=== PATIENT | female | born 2005 | race Caucasian/White ===

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

== ENCOUNTER 2024-02-08 08:56 | Emergency (ER) | payer OTHER, SELFPAY ==
[2024-02-08 09:05] VITALS: BP 117/74; PULSE 69; RESP 17; TEMP 36.7; O2SAT 100; BMI 18.3
--- NOTE | 2024-02-08 09:08 | ED_ITS ---
Discharge Plan Disposition Patient Disposition: Home, Self-Care Condition: Good Prescriptions Prescriptions: New urtzmsoubemihdc-ohewplcdn-MR [Bromfed DM] 2-30-10 mg/5 mL Syrup 5 ml PO Q6H PRN (Reason: Cough) Qty: 240 0RF cefdinir 300 mg capsule 300 mg PO BID Qty: 20 0RF No Action desvenlafaxine succinate 25 mg tablet extended release 24 hr 25 mg PO DAILY Qty: 30 1RF albuterol sulfate 90 mcg/actuation Hfa Aerosol Inhaler 2 puff INHALATION Q6H PRN (Reason: Asthma) Referrals Follow up/Referrals: Hyacinth Tuttle PA [Primary Care Provider] - See instructions Activity Restrictions/Add. Instructions Additional Instructions/Restrictions: Drink plenty of fluids. Take tylenol or ibuprofen for pain or fever. Take the medications as directed. Follow up with your regular doctor. GO TO THE ER FOR ANY WORSENING SYMPTOMS Clinical Impressions Clinical Impression: Otitis media Instructions Patient Instructions: Middle Ear Infection, Cefdinir Print Language Print Language: Mohawk Discharge ED Provider: Daljit Pandya [facility] General Stated complaint: sore throat, Pain in R ear, body aches Time Seen by Provider: 02/08/24 09:08 History of Present Illness Provider Complaint: She states that for the past 3 days she has had bilateral ear pain, sinus congestion and a cough. Related Data Home Medications ?Medication ?Instructions ?Recorded ?Confirmed albuterol sulfate 90 mcg/actuation 2 puff inhalation Q6H PRN Asthma 02/08/24 02/08/24 aerosol inhaler Previous Rx's ?Medication ?Instructions ?Recorded desvenlafaxine succinate 25 mg 25 mg PO DAILY #30 tabs 01/19/24 tablet,extended release 24 hr sunlvjkmktvpkrk-qkiuqkbvnetdeme-AN 5 ml PO Q6H PRN Cough #240 mL 02/08/24 2 mg-30 mg-10 mg/5 mL oral syrup (Bromfed DM) cefdinir 300 mg capsule 300 mg PO BID #20 caps 02/08/24 Allergies Allergy/AdvReac Type Severity Reaction Status Date / Time amoxicillin [From AUGMENTIN] Allergy Mild I-RASH Verified 12/01/23 15:34 clavulanic acid Allergy Mild I-RASH Verified 12/01/23 15:34 [From AUGMENTIN] azithromycin Allergy Verified 12/01/23 15:34 prednisone Allergy Verified 12/01/23 15:34 [facility] Disclaimer: The information contained in this section may have been updated after the patient was seen, as this information can be updated by other users. Medical History (Updated 02/08/24 @ 09:36 by Daljit Pandya APRN) Sprain of foot, right Right ankle sprain Generalized anxiety disorder Major depressive disorder Depression Anxiety Urinary tract infection Migraine Asthma Surgical History History of tympanostomy tube placement History of wisdom tooth extraction 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 Smoking Status: Current every day smoker tobacco type: e-cigarettes second hand exposure: Yes alcohol intake: never counseling given: No substance use type: denies use counseling given: No current occupational status: student and other Travel in the last 8 weeks: None adopted: No caregiver/support person: No foster care: No household members: family housing: house lives independently: No marital status: single number of children: 0 number of grandchildren: 0 education level: other details: she will soon graduate in November 2022 Hx Recent Travel: No sexually active: Yes are you practicing safe sex: Yes caffeine: Yes physical activity: none montana/mosque: None special montana needs: No working smoke detector in home: Yes fire extinguisher in home: Yes carbon monox detector in home: Yes firearms in home: Yes firearms unloaded and locked: Yes do you feel safe at home: Yes victim of physical abuse: No victim of emotional abuse: No victim of sexual abuse: No would you like helpful sources: No ROS Obtained: Yes All systems reviewed & no additional complaints except as documented Constitutional Constitutional: Denies chills, Reports fever(s) and Reports poor appetite Eyes Eyes: Denies eye discharge ENT Ears, Nose, Mouth, and Throat: Denies ear discharge, Reports otalgia, Denies hearing loss, Denies sinus pain and Reports sore throat Cardiovascular Cardiovascular: Denies chest pain and Denies dyspnea Respiratory Respiratory: Denies chest congestion, Reports cough and Denies dyspnea Gastrointestinal Gastrointestingal: Denies abdominal pain, diarrhea, nausea or vomiting Musculoskeletal Musculoskeletal: Denies arthralgias Integumentary/Breasts Skin/Breast: Denies rash Physical Exam General General appearance: alert and in no apparent distress Head Head exam: atraumatic, normocephalic and normal inspection Eye Eye exam: Present normal appearance; Absent PERRL or EOMI ENT ENT exam: Present mucous membranes moist and normal external ear exam Expanded ENT Exam TM/Canal exam: Bilateral TM: erythema, bulging and effusion Nose exam: Absent sinus tenderness Nasal speculum exam: Bilateral: normal Mouth exam: Present normal external inspection and other; Absent drooling Teeth exam: Present normal inspection Throat exam: Present tonsillar erythema and tonsillomegaly Neck Neck exam: Present normal inspection, full ROM and trachea midline; Absent tenderness, meningismus or lymphadenopathy Chest Chest inspection: Present normal inspection and symmetric chest wall rise; Absent tenderness Respiratory Respiratory exam: Present normal lung sounds bilaterally; Absent respiratory distress, wheezes or stridor Cardiovascular Cardiovascular exam: Present regular rate, normal rhythm and normal heart sounds; Absent tachycardia or irregular rhythm Abdominal Exam Abdominal exam: Present soft and normal bowel sounds; Absent distention, tenderness, guarding, rebound or rigidity Extremities Exam Extremities exam: Present normal inspection and normal capillary refill; Absent tenderness, joint swelling or calf tenderness Back Exam Back exam: Present normal inspection and full ROM; Absent tenderness, CVA tenderness (R) or CVA tenderness (L) Neurological Exam Neurological exam: Present alert, oriented X3, CN II-XII intact, normal gait and reflexes normal; Absent motor sensory deficit Psychiatric Psychiatric exam: Present normal affect and normal mood Skin Skin exam: Present warm, dry, intact and normal color Lymphatic Lymphatic Findings: no adenopathy Medical Decision Making Medical Records Medical records reviewed: No I reviewed the patient's medical records. Dariel Inquiry Pt receiving controlled substance: No Lab Data Lab results reviewed: Yes I reviewed the patient's lab results.
[2024-02-08 09:31] LABS: UTC Strep Screen (Rapid) Negative (Negative)
[2024-02-08 09:40] VITALS: BP 117/74; PULSE 69; RESP 17; TEMP 36.7; O2SAT 100
== END 2024-02-08 09:42 | disposition home or self-care (01) ==
PROVIDERS: Emergency Provider Nurse Practitioner Family; PCP Physician Assistant
DX: H66.93 Otitis media, unspecified, bilateral (principal); R05.9 Cough, unspecified; R09.81 Nasal congestion
CPT/HCPCS: 87880; 99212; 99214; G0463

== ENCOUNTER 2024-03-15 21:02 | Emergency (ER) | payer OTHER, SELFPAY ==
[2024-03-15 21:52] VITALS: BP 117/73; PULSE 63; RESP 20; TEMP 36.7; O2SAT 100; BMI 18.8
--- NOTE | 2024-03-15 22:13 | XR_ITS ---
PROCEDURE INFORMATION: Exam: XR Left Ankle Exam date and time: 03/15/2024 11:34 PM Age: 18 years old Clinical indication: Pain; Ankle; Left TECHNIQUE: Imaging protocol: Radiologic exam of the left ankle. Views: 3 or more views. COMPARISON: CR XR ANKLE LT MIN 3V 03/15/2024 11:34 PM FINDINGS: Bones/joints: The ankle mortise is intact and symmetric. The talar dome is normal. No acute fracture. No degenerative changes. Soft tissues: Normal. IMPRESSION: No acute findings.
--- NOTE | 2024-03-15 22:13 | XR_ITS ---
PROCEDURE INFORMATION: Exam: XR Left Foot Exam date and time: 03/15/2024 11:36 PM Age: 18 years old Clinical indication: Pain; Foot; Left TECHNIQUE: Imaging protocol: Radiologic exam of the left foot. Views: 1 or 2 views. COMPARISON: CR XR ANKLE LT MIN 3V 03/15/2024 11:34 PM FINDINGS: Bones/joints: The foot is normally aligned and intact. No acute fracture. Normal joint spaces. Soft tissues: Normal. IMPRESSION: No acute findings.
--- NOTE | 2024-03-15 22:24 | XR_ITS ---
PROCEDURE INFORMATION: Exam: XR Lumbosacral Spine Exam date and time: 03/15/2024 11:31 PM Age: 18 years old Clinical indication: Low back pain; Additional info: Fall TECHNIQUE: Imaging protocol: Radiologic exam of the lumbosacral spine. Views: 2 or 3 views. COMPARISON: CR XR SCOLIOSIS SURVEY 08/29/2019 10:14 AM FINDINGS: Bones/joints: Normal. No acute fracture. Normal alignment. Soft tissues: Unremarkable. IMPRESSION: No acute findings.
[2024-03-15 22:30] VITALS: BP 119/72; PULSE 75; O2SAT 99
[2024-03-15] MEDS: IBUPROFEN 600 MG TABLET PO (22:31)
[2024-03-15] MEDS: METHOCARBAMOL 500MG TABLET 750 MG PO (22:31)
[2024-03-15] MEDS: ACETAMINOPHEN 500MG TAB 1000 MG PO (22:31)
--- NOTE | 2024-03-15 23:11 | PC.NURSE ---
sent urine up to lab at this time
[2024-03-15 23:29] LABS: Urine Pregnancy, HCG Qual. Negative (Negative)
[2024-03-15 23:30] VITALS: BP 108/73; PULSE 73; O2SAT 98
--- NOTE | 2024-03-15 23:30 | HMH.EDGENADL ---
Discharge Plan Disposition Patient Disposition: Home, Self-Care Condition: Good Prescriptions Prescriptions: New acetaminophen [Tylenol Extra Strength] 500 mg tablet 1,000 mg PO Q6H PRN (Reason: pain) 4 Days Qty: 20 0RF methocarbamol 500 mg tablet 500 mg PO TID PRN (Reason: pain) 5 Days Qty: 15 0RF ibuprofen [IBU] 600 mg tablet 600 mg PO Q6H PRN (Reason: pain) 3 Days Qty: 12 0RF No Action desvenlafaxine succinate 25 mg tablet extended release 24 hr 25 mg PO DAILY Qty: 90 1RF albuterol sulfate 90 mcg/actuation Hfa Aerosol Inhaler 2 puff INHALATION Q6H PRN (Reason: Asthma) Referrals Follow up/Referrals: Hyacinth Tuttle PA [Primary Care Provider] - See instructions Activity Restrictions/Add. Instructions Additional Instructions/Restrictions: You have been evaluated in the ED for your complaints. You may follow-up with your PCP in the next 3 to 5 days. Please return to ED for any new or worsening symptoms. Please take Tylenol, ibuprofen and Robaxin as needed for pain. Clinical Impressions Clinical Impression: Left ankle sprain, Sciatica of left side, Lumbar strain Print Language Print Language: Citizen Of [place] Discharge ED Provider: Georges Dia Adult HPI General Chief complaint: Fall Stated complaint: AO 03-15-24 playing with sister hurt left foot Time Seen by Provider: 03/15/24 22:04 Mode of Arrival: Family Vehicle Source of Information: Patient Limitations: No Limitations Description of Symptoms (Recalled from ER Triage Doc. by RN): 18 yo female presents with CC of lle numbness following fall from 4 -5 ft height off of her sister. Patient landed on her back, and now has pain in the lumbar and lower thoracic spine, in addition to numbness to left foot and difficulty walking. States she voided a few mins before this nurse triaged and it was painful in her back and pelvis History of Present Illness HPI narrative: 18-year-old female with past medical history significant for anxiety, depression, migraines, asthma, presents today with mother for evaluation concerning lower back pain with associated left lower extremity pain. Patient reports that she was playing with her sister who picked her up in the air. Patient states that she fell onto her back and began to experience lower back pain as well as shooting pain down her left lower extremity. She also complains of left ankle and foot pain. Has been able to ambulate however with pain. She denies hitting her head or losing consciousness. Denies any nausea, vomiting or fevers, chills, chest pain or shortness of breath, abdominal pain, other extremity pain or any other associated symptoms. Related Data Home Medications ?Medication ?Instructions ?Recorded ?Confirmed albuterol sulfate 90 mcg/actuation 2 puff inhalation Q6H PRN Asthma 02/08/24 03/08/24 aerosol inhaler Previous Rx's ?Medication ?Instructions ?Recorded desvenlafaxine succinate 25 mg 25 mg PO DAILY #90 tabs 02/22/24 tablet,extended release 24 hr acetaminophen 500 mg tablet 1,000 mg (2 x 500 mg) PO Q6H PRN 03/16/24 (Tylenol Extra Strength) pain 4 days #20 tabs ibuprofen 600 mg tablet (IBU) 600 mg PO Q6H PRN pain 3 days #12 03/16/24 tabs methocarbamol 500 mg tablet 500 mg PO TID PRN pain 5 days #15 03/16/24 tabs Allergies Allergy/AdvReac Type Severity Reaction Status Date / Time amoxicillin [From AUGMENTIN] Allergy Mild I-RASH Verified 03/08/24 09:16 clavulanic acid Allergy Mild I-RASH Verified 03/08/24 09:16 [From AUGMENTIN] azithromycin Allergy Verified 03/08/24 09:16 prednisone Allergy Verified 03/08/24 09:16 [facility] Disclaimer: The information contained in this section may have been updated after the patient was seen, as this information can be updated by other users. Medical History (Updated 03/16/24 @ 00:25 by Georges Dia DO) Sprain of foot, right Right ankle sprain Generalized anxiety disorder Major depressive disorder Depression Anxiety Urinary tract infection Migraine Asthma Surgical History History of tympanostomy tube placement History of wisdom tooth extraction 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 Smoking Status: Unknown if ever smoked second hand exposure: Yes alcohol intake: never counseling given: No substance use type: denies use counseling given: No current occupational status: student and other Travel in the last 8 weeks: None adopted: No caregiver/support person: No foster care: No household members: family housing: house lives independently: No marital status: single number of children: 0 number of grandchildren: 0 education level: other details: she will soon graduate in November 2022 Hx Recent Travel: No sexually active: Yes are you practicing safe sex: Yes caffeine: Yes physical activity: none [place]/jewish: None special [place] needs: No working smoke detector in home: Yes fire extinguisher in home: Yes carbon monox detector in home: Yes firearms in home: Yes firearms unloaded and locked: Yes do you feel safe at home: Yes victim of physical abuse: No victim of emotional abuse: No victim of sexual abuse: No would you like helpful sources: No ROS Obtained: Yes All systems reviewed & no additional complaints except as documented Physical Exam General General appearance: alert and in no apparent distress Head Head exam: atraumatic and normocephalic Eye Eye exam: Present normal appearance, PERRL and EOMI ENT ENT exam: Present normal oropharynx and mucous membranes moist Neck Neck exam: Present full ROM; Absent meningismus Respiratory Respiratory exam: Absent respiratory distress, wheezes, stridor or accessory muscle use Cardiovascular Cardiovascular exam: Present normal rhythm Abdominal Exam Abdominal exam: Present soft; Absent distention, tenderness, guarding, rebound or rigidity Extremities Exam Extremities exam: Present normal inspection, full ROM and tenderness (Patient does have tenderness palpation over the medial malleolus on the left ankle. She also has tenderness over the dorsum of the left foot. Palpable DP pulses.) Back Exam Back exam: Present normal inspection, full ROM and paraspinal tenderness (Mild paraspinal tenderness palpation bilaterally, lower lumbar spine); Absent tenderness, straight leg raise (R) or straight leg raise (L) Neurological Exam Neurological exam: Present alert, oriented X3 and CN II-XII intact; Absent motor sensory deficit Psychiatric Psychiatric exam: Present normal affect and normal mood Skin Skin exam: Present warm and dry Medical Decision Making Medical Records Medical records reviewed: Yes I reviewed the patient's medical records. Dariel Inquiry Pt receiving controlled substance: No Draiel was queried for this patient: No Vital Signs: 03/15/24 21:52 03/15/24 22:30 03/15/24 23:30 Temperature 98.0 F Temperature Source Oral Pulse Rate 75 73 Pulse Rate [Right Brachial] 63 Respiratory Rate 20 Blood Pressure 119/72 108/73 L Blood Pressure [Right Arm] 117/73 Blood Pressure Mean 83 80 Blood Pressure Mean [Right Arm] 87 Blood Pressure Source [Right Arm] Automatic Cuff Blood Pressure Position [Right Arm] Sitting 02 Sat by Pulse Oximetry 100 99 98 Oxygen Delivery Method Room Air Lab Data Lab Results 03/15/24 23:10: Urine HCG, Qual Negative Orders (Tests/Meds): ED MEDICATIONS Generic Name Dose Route Start Last Admin Trade Name Freq PRN Reason Stop Dose Admin Methocarbamol 750 mg 03/16/24 22:23 03/15/24 22:31 Methocarbamol 500mg Tablet PO 04/15/24 22:22 750 mg BID HELEN Administration Discontinued Medications Generic Name Dose Route Start Last Admin Trade Name Freq PRN Reason Stop Dose Admin Acetaminophen 1,000 mg 03/15/24 22:21 03/15/24 22:31 Acetaminophen 500mg Tab PO 03/15/24 22:22 1,000 mg ONCE ONE Administration Ibuprofen 600 mg 03/15/24 22:21 03/15/24 22:31 Ibuprofen 600 Mg Tablet PO 03/15/24 22:22 600 mg ONCE ONE Administration ORDERS Category Date Time Status Ankle XR - Left minimum 3 Views [XR ankle LT min 3V] Exams 03/15/24 22:13 Taken Stat Foot XR left 2 views [XR foot LT 2V] Stat Exams 03/15/24 22:13 Taken Lumbar spine XR 2-3 views [XR lumbar spine 2-3V] Stat Exams 03/15/24 22:24 Taken Urine , HCG Qual. Stat Lab 03/15/24 23:10 Completed Medical Decision Narrative: 18-year-old female with past medical history significant for anxiety, depression, migraines, asthma, presents today with mother for evaluation concerning lower back pain with associated left lower extremity pain. Patient reports that she was playing with her sister who picked her up in the air. Patient states that she fell onto her back and began to experience lower back pain as well as shooting pain down her left lower extremity. She also complains of left ankle and foot pain. Has been able to ambulate however with pain. She denies hitting her head or losing consciousness. On assessment she was hemodynamically stable and in no acute distress. Afebrile. Chest clear to station bilateral. Abdomen soft nondistended rotation. No midline chest pressure of the C/T/L-spine. No pelvic tenderness. She did have tenderness to palpation over the medial malleolus of the left ankle and over the dorsum of the left foot. Palpable DP pulses. Ambulatory however with pain. I did press on patient's piriformis muscle and it did reproduce her shooting pain. Straight leg test raise did not reproduce pain. Other physical exam findings unremarkable. Differential diagnoses include but not limited to lumbar strain/fracture, sciatica, extremity fracture, ankle sprain, among others Patient was given Tylenol, ibuprofen and Robaxin while in the ED. Plain films of the left ankle, left foot and lumbar x-ray did not show any acute bony abnormalities on my informal interpretation. On reassessment patient remains hemodynamically stable and in no acute distress. She is resting comfortably on stretcher. Pain is improved at this time. I discussed with patient/mother ED workup and results as well as current plan to discharge with supportive care measures with Tylenol, Motrin and Robaxin over the next few days. She is able to ambulate however will use her crutches that she has at home to further assist. They verbalized understanding and agreed with plan. Provided with return precautions and instructions concerning follow-up. Subsequently discharged. Critical Care Critical Care Time Critical Care Time: No
--- NOTE | 2024-03-15 23:34 | PC.NURSE ---
notified doron keene with neg preg results
[2024-03-16 00:44] VITALS: BP 101/64; PULSE 68; RESP 16; TEMP 36.8; O2SAT 98
== END 2024-03-16 00:49 | disposition home or self-care (01) ==
PROVIDERS: Emergency Provider Emergency Medicine; PCP Physician Assistant
DX: S39.012A Strain of muscle, fascia and tendon of lower back, initial encounter (principal); M54.42 Lumbago with sciatica, left side; S93.402A Sprain of unspecified ligament of left ankle, initial encounter; J45.909 Unspecified asthma, uncomplicated; W17.89XA Other fall from one level to another, initial encounter; Y92.9 Unspecified place or not applicable
CPT/HCPCS: 72100; 73610; 73620; 81025; 99285

== ENCOUNTER 2024-05-07 18:01 | Emergency (ER) | payer OTHER, SELFPAY ==
--- NOTE | 2024-05-07 18:59 | ED_ITS ---
Discharge Plan Disposition Patient Disposition: Home, Self-Care Condition: Good Prescriptions Prescriptions: New rkzcpkuwovwbwaj-ewahtahlu-HD [Bromfed DM] 2-30-10 mg/5 mL Syrup 5 ml PO Q6H PRN (Reason: Cough) Qty: 240 0RF cefdinir 300 mg capsule 300 mg PO BID Qty: 20 0RF No Action desvenlafaxine succinate 25 mg tablet extended release 24 hr 25 mg PO DAILY Qty: 90 1RF albuterol sulfate 90 mcg/actuation Hfa Aerosol Inhaler 2 puff INHALATION Q6H PRN (Reason: Asthma) Referrals Follow up/Referrals: Hyacinth Tuttle PA [Primary Care Provider] - See instructions Activity Restrictions/Add. Instructions Additional Instructions/Restrictions: Drink plenty of fluids. Take tylenol or ibuprofen for pain or fever. Take the medications as directed. Follow up with your regular doctor. GO TO THE ER FOR ANY WORSENING SYMPTOMS Clinical Impressions Clinical Impression: Pharyngitis, Acute viral syndrome Stand Alone Forms Stand Alone Forms: Work/School Release Instructions Patient Instructions: Sore Throat, DI for Pharyngitis/Tonsillopharyngitis -- Adult Print Language Print Language: [place] Discharge ED Provider: Daljit Pandya [facility] General Stated complaint: Sore throat,runny nose,BRIONES Time Seen by Provider: 05/07/24 18:59 Related Data Home Medications ?Medication ?Instructions ?Recorded ?Confirmed albuterol sulfate 90 mcg/actuation 2 puff inhalation Q6H PRN Asthma 02/08/24 05/07/24 aerosol inhaler Previous Rx's ?Medication ?Instructions ?Recorded desvenlafaxine succinate 25 mg 25 mg PO DAILY #90 tabs 02/22/24 tablet,extended release 24 hr dlafsruuxhjxkru-mykshsoaikqxagm-VC 5 ml PO Q6H PRN Cough #240 mL 05/07/24 2 mg-30 mg-10 mg/5 mL oral syrup (Bromfed DM) cefdinir 300 mg capsule 300 mg PO BID #20 caps 05/07/24 Allergies Allergy/AdvReac Type Severity Reaction Status Date / Time amoxicillin [From AUGMENTIN] Allergy Mild I-RASH Verified 03/08/24 09:16 clavulanic acid Allergy Mild I-RASH Verified 03/08/24 09:16 [From AUGMENTIN] azithromycin Allergy Verified 03/08/24 09:16 prednisone Allergy Verified 03/08/24 09:16 [facility] Disclaimer: The information contained in this section may have been updated after the patient was seen, as this information can be updated by other users. Medical History (Updated 05/07/24 @ 19:40 by Daljit Pandya APRN) Sprain of foot, right Right ankle sprain Generalized anxiety disorder Major depressive disorder Depression Anxiety Urinary tract infection Migraine Asthma Surgical History History of tympanostomy tube placement History of wisdom tooth extraction 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 Smoking Status: Unknown if ever smoked second hand exposure: Yes alcohol intake: never counseling given: No substance use type: denies use counseling given: No current occupational status: student and other Travel in the last 8 weeks: None adopted: No caregiver/support person: No foster care: No household members: family housing: house lives independently: No marital status: single number of children: 0 number of grandchildren: 0 education level: other details: she will soon graduate in November 2022 Hx Recent Travel: No sexually active: Yes are you practicing safe sex: Yes caffeine: Yes physical activity: none mont[place]/buddhist: None special [place] needs: No working smoke detector in home: Yes fire extinguisher in home: Yes carbon monox detector in home: Yes firearms in home: Yes firearms unloaded and locked: Yes do you feel safe at home: Yes victim of physical abuse: No victim of emotional abuse: No victim of sexual abuse: No would you like helpful sources: No ROS Obtained: Yes All systems reviewed & no additional complaints except as documented Constitutional Constitutional: Reports chills and Reports fever(s) Eyes Eyes: Denies eye discharge ENT Ears, Nose, Mouth, and Throat: Reports as per HPI Cardiovascular Cardiovascular: Denies chest pain Respiratory Respiratory: Denies chest congestion and Reports cough Gastrointestinal Gastrointestingal: Reports nausea; Denies abdominal pain, constipation, cramping, diarrhea or vomiting Musculoskeletal Musculoskeletal: Denies arthralgias Integumentary/Breasts Skin/Breast: Denies rash Neurologic Neurologic: Denies paresthesias Physical Exam General General appearance: alert and in no apparent distress Head Head exam: atraumatic, normocephalic and normal inspection Eye Eye exam: Present normal appearance, PERRL and EOMI ENT ENT exam: Present mucous membranes moist and normal external ear exam Expanded ENT Exam TM/Canal exam: Bilateral TM: erythema and bulging Nose exam: Absent sinus tenderness Mouth exam: Present normal external inspection; Absent drooling Teeth exam: Present normal inspection Throat exam: Present tonsillar erythema, tonsillomegaly and tonsillar exudate Neck Neck exam: Present normal inspection, full ROM and trachea midline; Absent tenderness, meningismus or lymphadenopathy Chest Chest inspection: Present normal inspection and symmetric chest wall rise; Absent tenderness Respiratory Respiratory exam: Present normal lung sounds bilaterally; Absent respiratory dis tress, wheezes, stridor or accessory muscle use Cardiovascular Cardiovascular exam: Present regular rate and normal rhythm; Absent systolic murmur or diastolic murmur Abdominal Exam Abdominal exam: Present soft and normal bowel sounds; Absent distention, tenderness, guarding, rebound or rigidity Extremities Exam Extremities exam: Present normal inspection and normal capillary refill; Absent calf tenderness Back Exam Back exam: Present normal inspection and full ROM; Absent tenderness, CVA tenderness (R) or CVA tenderness (L) Neurological Exam Neurological exam: Present alert, oriented X3 and CN II-XII intact Psychiatric Psychiatric exam: Present normal affect and normal mood Skin Skin exam: Present warm, dry, intact and normal color Medical Decision Making Medical Records Medical records reviewed: No I reviewed the patient's medical records. Screening: Per USPSTF and CDC recommendations, given the prevalence of disease in our [facility], it is our hospital?s policy to screen for HIV and viral Hepatitis for all patients aged 18 and over and those with ongoing risk factors. Dariel Inquiry Pt receiving controlled substance: No Lab Data Lab results reviewed: Yes I reviewed the patient's lab results.
[2024-05-07 19:00] VITALS: BP 117/71; PULSE 69; RESP 17; TEMP 37.2; O2SAT 100; BMI 17.8
[2024-05-07 19:14] LABS: UTC Strep Screen (Rapid) Negative (Negative)
[2024-05-07 19:40] VITALS: BP 117/71; PULSE 69; RESP 17; TEMP 37.2; O2SAT 100
[2024-05-07 19:49] LABS: Adenovirus,PCR Not Detected (NotDetected); Bordetella Pertussis Not Detected (NotDetected); Chlamydophila Pneumoniae, PCR Not Detected (NotDetected); Coronavirus 19, PCR Not Detected (NotDetected); Coronavirus 229E Not Detected (NotDetected); Coronavirus NL63 Not Detected (NotDetected); Coronavirus OC43 Not Detected (NotDetected); Coronovirus HKU1,PCR Not Detected (NotDetected); Human Metapneumovirus Not Detected (NotDetected); Influenza A, PCR Not Detected (NotDetected); Influenza AH1, 2009 Not Detected (NotDetected); Influenza AH1, PCR Not Detected (NotDetected); Influenza AH3,PCR Not Detected (NotDetected); Influenza B, PCR Not Detected (NotDetected); Mycoplasma Pneumoniae, PCR Not Detected (NotDetected); Parainfluenza 1, PCR Not Detected (NotDetected); Parainfluenza 2, PCR Not Detected (NotDetected); Parainfluenza 3, PCR Not Detected (NotDetected); Parainfluenza 4, PCR Not Detected (NotDetected); Respiratory Syncytial Virus Not Detected (NotDetected)
[2024-05-08 05:49] LABS: Rhinovirus/Enterovirus Detected (NotDetected)
== END 2024-05-07 19:42 | disposition home or self-care (01) ==
PROVIDERS: Emergency Provider Nurse Practitioner Family; PCP Physician Assistant
DX: B34.9 Viral infection, unspecified (principal); J02.9 Acute pharyngitis, unspecified; R51.9 Headache, unspecified; R09.89 Other specified symptoms and signs involving the circulatory and respiratory systems; R50.9 Fever, unspecified
CPT/HCPCS: 87265; 87486; 87581; 87632; 87635; 87880; 99212; G0381

== ENCOUNTER 2024-05-28 09:22 | Emergency (ER) | payer OTHER, SELFPAY ==
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
--- OUTSIDE RECORDS SUMMARY | 2024-05-28 09:28 | XMS_ITS | Encounter Summary ---
Author Organization Healthcare Address [address] [place] [address] Care Team Providers Care Railroad Car Checker Name Role Phone Domenico Jameson MD Primary Care Provider [phone] Encounter Details Date Type Department Care Team (Late st Contact Info) Description 11/24/2022 Telephone [facility] [address] [place] [address] Keyana Raymond RN [facility] 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 Tobacco Use Types Packs/Day Years Used Date Smoking Tobacco: Never Passive Smoke Exposure: Yes Smokeless Tobacco: Never Alcohol Use Standard Drinks/Week Comments Never 0 (1 standard drink = 0.6 oz pur e alcohol) Comments Unknown Sex and Gender Information Value Date Recorded Sex Assigned at Not on file Legal Sex Female 6:31 PM EDT Gender Identity Not on file Sexual Orientation Not on file documented as of this encounter Miscellaneous Notes * Telephone Encounter - Keyana Raymond RN - 11/24/2022 11:04 AM EDT Called [facility], no results for calpro yet. Will follow for results. documented in this encounter Plan of Treatment Not on file documented as of this encounter Visit Diagnoses Not on filedocumented in this encounter Additional Health Concerns Assessment Noted Time A fall risk assessment has been complete d for the patient 11/24/2022 10:50 AM EDT documented as of this encounter Care Teams Railroad Car Checker Relationship Specialty Start Date End Date Domenico Jameson MD [address] [place] [address] PCP - General 11/21/20 documented as of this encounter
--- OUTSIDE RECORDS SUMMARY | 2024-05-28 09:28 | XMS_ITS | Clinical Summary ---
Author Organization [facility] Address [address] [place] [address] Care Team Providers Care Heading Up Machine Operator Name Role Phone Domenico Jameson MD Primary Care Provider [phone] Allergies Active Allergy Reactions Criticality Noted Date Comments Amoxicillin-Pot Clavulanate Rash Low 09/21/19 14 Azithromycin Hives Medium 03/30/2022 Prednisone Rash Low 12/19/2018 Medications Probiotic Product (PROBIOTIC PO) 6 Active Multiple Vitamin (multivitamin) tablet Take 1 tablet by mouth 1 (one) time each day. Active Flovent HFA 110 MCG/ACT inhaler Inhale 1 puff if needed. 1 Active escitalopram (Lexapro) 5 MG tablet TAKE ONE TABLET BY MOUTH ONCE a DAY DIRECTED 1 Active ProAir HFA 108 (90 Base) MCG/ACT inhaler INHALE TWO PUFFS BY MOUTH EVERY 4 TO 6 HOURS NEEDED FOR cough, wheeze, OR SHORTNESS OF BREATH 2 Active ondansetron (Zofran) 4 MG tablet Take 4 mg by mouth every 8 (eight) hours if needed. 2 Active norgestimate-ethin yl estradiol (Sprintec 28) 0.25-35 MG-MCG tabletIndications: Encounter for initial prescription of contraceptive pills Take 1 tablet by mouth 1 (one) time each day. 28 tablet 12 3 Active desvenlafaxine succinate er (Pristiq) 25 MG 24 hr tablet Take 25 mg by mouth 1 (one) time each day. 3 Active cholecalciferol 10 MCG (400 UNIT) tablet Take 400 Units by mouth 1 (one) time each day. Active cyanocobalamin 100 MCG tablet Take 100 mcg by mouth 1 (one) time each day. Active Folic Acid (FOLATE PO) Take by mouth. Active bisacodyl (Dulcolax) 5 MG EC tablet Do not crush, chew, or split. Take 1 to 2 tabs daily as directed 60 tablet 5 3 Active polyethylene glycol (MiraLax) 17 GM/SCOOP powder Take 1 capful ( 17 gm) in 8 oz of any clear liquid daily as directed. 527 g 6 3 Active Active Problems Problem Noted Date Diagnosed Date Encounter for initial prescription of contracept michelle pills 09/13/2022 Assessment & Plan (09/13/2022 11:02 AM EST): - heavy painful periods - has tried a few different types of OCPs before. Not interested in other options - sprintec Rx sent - discussed starting paps at 20 yo - RTC 3 month for symptom eval Low libido 09/13/2022 Assessment & Plan (09/13/2022 11:03 AM EST): - we discussed that antidepressants like lexapro can cause decreased libido. - we discussed that Wellbutrin may be a good option; however, since she has a mood disorder that she should see her prescribing provider to switch medications are certain antidepressants can make mood disorders worse Palpitations 05/02/2021 Other chest pain 04/30/2021 Constipation 10/24/2014 Periumbilical abdominal pain 10/24/2014 Family History Medical History Relation Name Comments COPD Father Hypertension Father Breast cancer Maternal Grandmother Ulcers Maternal Grandmother breast cancer Maternal Grandmother DION disease Mother Cardiac disorder Other 1 Cardiac disorder Other 2 COPD Other 3 COPD Other 4 Diabetes Other 5 Diabetes Other 6 Hypertension Other 7 Hypertension Other 8 Breast cancer Other 9 Relation Name Status Comments Father Maternal Grandmother Mother Other 1 Other 2 Other 3 Other 4 Other 5 Other 6 Other 7 Other 8 Other 9 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 Tobacco Use Types Packs/Day Years Used Date Smoking Tobacco: Never Passive Smoke Exposure: Yes Smokeless Tobacco: Never Tobacco Cessation:Counseling Given: Not Answered Alcohol Use Standard Drinks/Week Comments Never 0 (1 standard drink = 0.6 oz pur e alcohol) Comments Unknown Sex and Gender Information Value Date Recorded Sex Assigned at Not on file Legal Sex Female 6:31 PM EDT Gender Identity Not on file Sexual Orientation Not on file Last Filed Vital Signs Vital Sign Reading Time Taken Comments Blood Pressure 112/76 11/24/2022 10:50 AM EDT Pulse 74 11/24/2022 10:50 AM EDT Temperature 36.5 ??C (97.7 ??F) 11/24/2022 10:50 AM E DT Respiratory Rate 17 09/13/2022 9:46 AM EST Oxygen Saturation 97% 09/13/2022 9:46 AM EST Inhaled Oxygen Concentration - - Weight 45.1 kg (99 lb 6.8 oz) 11/24/2022 10:50 A M EDT Height 160.7 cm (5' 3.27 ) 11/24/2022 10:50 AM E DT Body Mass Index 17.46 11/24/2022 10:50 AM EDT Plan of Treatment Health Maintenance Due Date Last Done Comments [facility]-Chlamydia and Gonorrhea Screening 2004 [facility]Depression Screening 2004 [facility]HIV Screening 2004 [facility]Hepatitis C Screening 2004 [facility]-Infant/Child/Adol SDOH Screenings 2004 [facility]-HPV Vaccines (1 - 3-dose series) 2019 [facility]- SDOH Screenings 2022 [facility]-Adult SDOH Screenings 2022 [id number] Vaccine ( season) 2024 04/23/2022, 06/01/2021, 03/07/2021 [facility]-Influenza Vaccine (#1) 2024 08/18/2018 [facility]-DTaP,Tdap,and Td Vaccines (7 - Td or Tdap) 01/27/2026 01/28/2016, 04/16/2008, 10/13/2005, Additional history exists [facility]-Zoster Vaccines (1 of 2) 2054 04/16/2008, 05/03/2005 [facility]-RSV Vaccine: 60+ Years or (1 - 1-dose 75+ series) 2079 [facility]-Hepatitis B Vaccines Completed 005, 2004, 2004 [facility]-Varicella Vaccines Completed 04/16/2008, 2004 [facility]-Hepatitis A Vaccines Completed 06/16/2018, 10/10 [facility]-HIB Vaccines Aged Out No longer e ligible based on patient's age to complete this topic [facility]-IPV Vaccines Aged Out No longer e ligible based on patient's age to complete this topic [facility]-Pneumococcal Vaccine: Pediatrics (0 to 5 Years) and At-Risk Patients (6 to 64 Years) Aged Out No longer eligible based on patient's age to complete this topic [facility]Rotavirus Vaccines Aged Out No lo nger eligible based on patient's age to complete this topic Insurance [employer] MEDICA[employer] Care Teams Heading Up Machine Operator Relationship Specialty Start Date End Date Domenico Jameson MD [address] [place] [id number] PCP - General 11/21/20
--- OUTSIDE RECORDS SUMMARY | 2024-05-28 09:28 | XMS_ITS | Encounter Summary ---
Author Organization [facility] Address [address] [place] [address] Care Team Providers Care Welding Equipment Repairer Supervisor Name Role Phone Domenico Jameson MD Primary Care Provider [phone] Reason for Referral * Cardiac Stress Testing (Routine) - Closed Specialty Diagnoses / Procedures Referred By Yony yung Referred To Contact Cardiology Diagnoses Palpitations Procedures Pediatric Holter Monitor Mj Reynolds MD [address] [address] Phone: tel: fax: Referral ID Status Reason Start Date Expiration Date Visits Re quested Visits Authorized [id number] Closed 04/30/2021 10/30/2022 1 1 Reason for Visit * Cardiac Stress Testing (Routine) - Closed Specialty Diagnoses / Procedures Referred By Yony yung Referred To Contact Cardiology Diagnoses Palpitations Procedures Pediatric Holter Monitor Mj Reynolds MD [address] [address] Phone: tel: fax: Referral ID Status Reason Start Date Expiration Date Visits Re quested Visits Authorized [id number] Closed 04/30/2021 10/30/2022 1 1 Encounter Details Date Type Department Care Team (Latest Contact Info) Description 04/30/2021 12:45 PM EDT - 04/30/2021 11:59 PM EDT Hospital Encounter [facility] Pediatric Cardiac Diagnostic Testing [address] Floor, [place] [address] Palpitations Discharge Disposition: Home or Self Care 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 Tobacco Use Types Packs/Day Years Used Date Smoking Tobacco: Passive Smo ke Exposure - Never Smoker Smokeless Tobacco: Never Comments Unknown Sex and Gender Information Value Date Recorded Sex Assigned at Not on file Legal Sex Female 6:31 PM EDT Gender Identity Not on file Sexual Orientation Not on file COVID-19 Exposure Response Date Recorded In the last month, have you been in contact with someone who was confirmed or suspected to have Coronavirus / COVID-19? No / Unsure 04/30/2021 11:44 AM EDT documented as of this encounter Medications at Time of Discharge escitalopram (Lexapro) 5 MG tablet TAKE ONE TABLET BY MOUTH ONCE a DAY DIRECTED 04/14/2021 Flovent HFA 110 MCG/ACT inhaler Inhale 1 puff if needed. 04/14/2021 Multiple Vitamin (multivitamin) tablet Take 1 tablet by mouth 1 (one) time each day. Probiotic Product (PROBIOTIC PO) 12/29/2015 cephalexin (Keflex) 500 MG capsule TAKE ONE CAPSULE BY MOUTH TWICE DAILY FOR 10 DAYS -- FINISH ALL MEDICINE -- 04/29/2021 2 erythromycin ethylsuccinate (E.E.S. Granules) 200 MG/5ML suspension Take 160 mg or 4 mls Three times daily half an hour before meals 360 mL 1 04/01/2021 2 metoprolol succinate XL (Toprol-XL) 25 MG 24 hr tablet Take 25 mg by mouth 1 (one) time each day. 04/28/2021 3 norethindrone-ethiny l estradiol (Microgestin 07/30) 1-20 MG-MCG tablet Take 1 tablet by mouth 1 (one) time each day. 03/25/2021 2 omeprazole (PriLOSEC) [address] capsule Take 20 mg by mouth 1 (one) time each day. 03/10/2021 3 risperiDONE (RisperDAL) 1 MG tablet TAKE ONE TABLET BY MOUTH EVERY DAY AT BEDTIME DIRECTED 03/25/2021 2 VITAMIN D, ERGOCALCIFEROL, PO Take by mouth. 3 documented as of this encounter Plan of Treatment Not on file documented as of this encounter Procedures Procedure Name Priority Date/Time Associated Diagnosis Comments PEDIATRIC HOLTER MONITOR 48 HOURS TO 7 DAYS Routine 04/30/2021 1:41 PM EDT Palpitations documented in this encounter Results * PEDIATRIC HOLTER MONITOR 48 HOURS TO 7 DAYS (04/30/2021 1:41 PM EDT) BSA 1.53 m2 CAR DO NOT SEND Anatomical Region Laterality Modality Other Narrative 07/09/2021 12:30 PM EST Holter monitor study was 1. Rhythm is mostly ectopic atrial rhythm and occasional sinus rhythm (normal variant) with normal HR variability. Circadian pattern to HR. 2. Rare PACs (<1 per hour). No tachyarrhythmias. 3. Button pushes are EAR, NSR and ST for age with sinus arrhythmia. No Diary. Signed By Alon Cox 05/05/2021 16:57 us Mj Reynolds MD [facility] CARDIAC SERVICES PROCEDU RES Final Result documented in this encounter Visit Diagnoses Diagnosis Palpitations documented in this encounter Additional Health Concerns Assessment Noted Time A fall risk assessment has been complete d for the patient 04/01/2021 10:27 AM EDT documented as of this encounter Care Teams Welding Equipment Repairer Supervisor Relationship Specialty Start Date End Date Domenico Jameson MD [address] [place] [address] PCP - General 11/21/20 documented as of this encounter
--- OUTSIDE RECORDS SUMMARY | 2024-05-28 09:28 | XMS_ITS | Encounter Summary ---
Author Organization Healthcare Address [address] [id number] Care Team Providers Care Oracle Application Architect Name Role Phone Domenico Jameson MD Primary Care Provider [phone] Reason for Visit * Reason Comments Abdominal Pain Nausea Encounter Details Date Type Department Care Team (Late st Contact Info) Description 11/24/2022 10:30 AM EDT Office Visit [facility] [address] [place] [address] Joe Marc MD [address] [facility] [address] [place] [address] Chronic abdominal pain (Primary Dx) 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 Tobacco Use Types Packs/Day Years [...] on file documented as of this encounter Last Filed Vital Signs Vital Sign Reading Time Taken Comments Blood Pressure 112/76 11/24/2022 10:50 AM EDT Pulse 74 11/24/2022 10:50 AM EDT Temperature 36.5 ??C (97.7 ??F) 11/24/2022 1 0:50 AM EDT Respiratory Rate - - Oxygen Saturation - - Inhaled Oxygen Concentration - - Weight 45.1 kg (99 lb 6.8 oz) 3 10:50 AM EDT Height 160.7 cm (5' 3.27 ) 11/24/2022 1 0:50 AM EDT Body Mass Index 17.46 11/24/2022 10:50 AM EDT Body Mass Index Percentile 3.70% 11/24 10:50 AM EDT Growth Chart: [facility] (Girls, 2- 20 Years) documented in this encounter Miscellaneous Notes * Progress Notes - Joe Marc MD - 11/24/2022 10:30 AM EDT Images from the original note were not included. Subjective Dear Domenico Jameson MD, I had the pleasure of seeing Roxi Wilkinson who is a 17 y.o. female being seen as a established patient at the [facility] today with/for Abdominal Pain and Nausea. Roxi Wilkinson was last seen in our specialty clinic on 03 30 22. Discussion Summary: Fidelia has a history of [...] of inflammatory bowel disease as a differential Subsequent plan following the last visit: 1 Cbc, CMP , CRP 2 Locally fecal calprotectin. This was never obtained. 3 Stool plan as below. 4 Clinic to be determined depending on results or in 6 months WASHOUT STAGE (LAST 2 DAYS): place 5 capfuls in 32 oz of gatorade or [...] bowel movements daily. We have used the [place] stool scale to explain a good bowel movement. I have explained a stepwise approach to ensuring a good bowel movement in 3 days. Weekend Tuesday Weekend Morning Miralax Miralax Miralax Miralax Miralax Repeat washout Afternoon 1 Dulcolax tab 2 Dulcolax tabs 3 Dulcolax tabs 3 Dulcolax Tabs plus 1 Miralax Means if there is no bowel movement by after breakfast the next day. We have also discussed a weaning protocol when he has established a good bowel movement pattern fora few months. We discussed that during the maintenance phase, stools should look like type 4 to type 5 on the chart below. The patient is here today with parent who assists in giving the child's history. Current concerns: Abdominal pain and nausea. She is having anxiety and depression for which she is on medical management. Abdominal pain about every other day no particular time of the day. It does not wake her from sleep. It is not specific and cramping. Eating aggravates this and she has to have a BM when she is eating. BM are variable no to 4 to 5 times per day She is not doing the bowel plan we suggested. 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 She did have a change in her mood medication but this was after her complaints started. She does vap but just nicotine. Temp: [36.5 ??C (97.7 ??F)] 36.5 ??C (97.7 ??F) Heart Rate: [74] 74 BP: (112)/(76) 112/76 Wt Readings from Last 3 Encounters: 11/24/22 45.1 kg (99 lb 6.8 oz) (4 %, Z= -1.77)* 09/13/22 44.7 kg (98 lb 8.7 oz) (3 %, Z= -1.83)* 03/30/22 45.4 kg (100 lb 1.4 oz) (5 %, Z= -1.62)* * Growth percentiles are based on CDC (Girls, 2-20 Years) data. Ht Readings from Last 3 Encounters: 11/24/22 1.607 m (5' 3.27 ) (35 %, Z= -0.39)* 09/13/22 1.626 m (5' 4 ) (46 %, Z= -0.10)* 03/30/22 1.599 m (5' 2.95 ) (31 %, Z= -0.50)* * Growth percentiles are based on [facility] (Girls, 2-20 Years) data. Past Medical History: Diagnosis Date Anxiety Depression Enterocolitis due to Clostridium difficile, not specified as recurrent C. difficile diarrhea Migraines Personal history of other diseases of urinary system History of hematuria Proteinuria, unspecified Proteinuria Family History Problem Relation Name Age of Onset DION disease Mother COPD Father Hypertension Father Breast cancer Maternal Grandmother Ulcers Maternal Grandmother Other (breast cancer) Maternal Grandmother Cardiac disorder Other Cardiac disorder Other COPD Other COPD Other Diabetes Other Diabetes Other Hypertension Other Hypertension Other Breast cancer Other Past Surgical History: Procedure Laterality Date DENTAL SURGERY 2020 wisdom teeth MYRINGOTOMY WTHOUT TUBES N/A Myringotomy from Proximiant 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 Tobacco Use Smoking status: Never Passive exposure: Yes Smokeless tobacco: Never Substance Use Topics Alcohol use: Never Current Outpatient Medications on File Prior to Visit Medication Sig Dispense Refill cholecalciferol 10 MCG (400 UNIT) tablet Take 400 Units by mouth 1 (one) time each day. cyanocobalamin 100 MCG tablet Take 100 mcg by mouth 1 (one) time each day. desvenlafaxine succinate er (Pristiq) 25 MG 24 hr tablet Take 25 mg by mouth 1 (one) time each day. Folic Acid (FOLATE PO) Take by mouth. norgestimate-ethinyl estradiol (Sprintec 28) 0.25-35 MG-MCG tablet Take 1 tablet by mouth 1 (one) time each day. 28 tablet 12 ProAir HFA 108 (90 Base) MCG/ACT inhaler INHALE TWO PUFFS BY MOUTH EVERY 4 TO 6 HOURS NEEDED FORcough, wheeze, OR SHORTNESS OF BREATH Probiotic Product (PROBIOTIC PO) escitalopram (Lexapro) 5 MG tablet TAKE ONE TABLET BY MOUTH ONCE a DAY DIRECTED (Patient not taking: Reported on 11/24/2022) Flovent HFA 110 MCG/ACT inhaler Inhale 1 puff if needed. (Patient not taking: Reported on 11/24/2022) Multiple Vitamin (multivitamin) tablet Take 1 tablet by mouth 1 (one) time each day. ondansetron (Zofran) 4 MG tablet Take 4 mg by mouth every 8 (eight) hours if needed. (Patient not taking: Reported on 11/24/2022) [DISCONTINUED] bisacodyl (Dulcolax) 5 MG EC tablet Do not crush, chew, or split. Take 1 to 2 tabs daily as directed (Patient not taking: Reported on 11/24/2022) 60 tablet 5 [DISCONTINUED] polyethylene glycol (MiraLax) 17 GM/SCOOP powder Take 1 capful ( 17 gm) in 8 oz of any clear liquid daily as directed. (Patient not taking: Reported on 11/24/2022) 527 g 6 [DISCONTINUED] VITAMIN D, ERGOCALCIFEROL, PO Take by mouth. No current facility-administered medications on file prior to visit. Allergies Allergen Reactions Azithromycin Hives Augmentin [Amoxicillin-Pot Clavulanate] Rash Prednisone Rash All medications have been reviewed today. Objective Review of Systems A 14 point review of systems was performed and was negative except as noted in the history of present illness. Vitals: 11/24/22 1050 BP: 112/76 Pulse: 74 Temp: 36.5 ??C (97.7 ??F) Physical Exam Constitutional General appearance: No acute distress, well appearing and well nourished. Eyes Conjunctiva and lids: No swelling, [...] S1 and S2, without murmurs. Abdomen Abdomen: No masses, non tender. Liver and spleen: No hepatomegaly or splenomegaly. Lymphatic Palpation of lymph nodes in neck: No lymphadenopathy Musculoskeletal [place] and station: Normal Digits and nails: Normal without clubbing or cyanosis. Inspection/palpation of joints, bones, and muscles: Normal. Skin Skin and subcutaneous tissue: Normal without rashes or lesions. Neurologic Cranial nerves: Appear grossly intact. Reflexes: 2 + and symmetric. Psychiatric Orientation to person, place and time: Normal. Mood and effect: Normal for age Results: Assessment: Problem List Items Addressed This Visit None Visit Diagnoses Chronic abdominal pain - Primary Relevant Orders CBC and differential Comprehensive metabolic panel C-reactive protein Discussion Summary: Fidelia has a history of stool urgency with eating. Stool is described as type 1 to 3 on the [place]. There is some early satiety and there has been some wt. Loss. She had an acute colitis in 2016 so we follow her. This last year she has been having more complaints of abdominal pain and alternating BM with urgency for BM during eating. Her labs have been stable and we were finally able to get to send a fecal calprotectin last week still pending. I suspect she will be an irritable bowel syndrome constipation form. They did not do the stool plan as requested at the last visit Subsequent Plan: Stool plan as noted above We reviewed this plan and gave a hard copy CBC, cmp and CRP today Follow calprotectin resulted as 10 on 11 17 22. Good no further work up Discussed adult GI/instrument repair technician if there are not features to suggest chronic inflammation. The parent was counseled regarding impressions and instructions for management. Education provided was by verbal counseling. I have personally spent 30 minutes today, providing clinical care to this patient reviewing previous testing and documentation, providing [id number] interview/exam/diagnosis, documenting in the EMR, and/or communicating with other care team members. documented in this encounter Plan of Treatment Not on file documented as of this encounter Results * C-reactive protein (11/24/2022 11:49 AM EDT) CRP, Plasma <3.0 <=8.0 mg/L 11/24/2022 1:56 PM EDT [facility] Blood Venous blood specimen / Unknown Venipuncture / Unknown 11/24/2022 11:49 AM EDT 11/24/2022 11:49 AM EDT Narrative [facility] - 11/24/2022 1:56 PM EDT This CRP test is appropriate for assessment of infection, systemic inflammation and/or tissue injury. To assess cardiovascular disease risk order high sensitivity CRP (CRPH). us Joe Marc MD LAB BLOOD ORDERABLES Final Res ult [facility] [address] [place] [address] * Comprehensive metabolic panel (11/24/2022 11:49 AM EDT) Glucose, Plasma 90 74 - 99 mg/dL 11/24/2022 1:56 PM EDT [facility] BUN, Plasma 10 7 - 21 mg/dL 11/24/2022 1:56 PM EDT [facility] Creatinine, Plasma 0.67 0.50 - 0.90 mg/dL 11/24/2022 1:56 PM EDT [facility] BUN/Creatinine Ratio 15 11/24/2022 1:56 PM EDT [facility] Sodium, Plasma 139 136 - 145 mmol/L 11/24/2022 1:56 PM EDT [facility] Potassium, Plasma 3.9 3.7 - 4.8 mmol/L 11/24/2022 1:56 PM EDT [facility] Chloride, Plasma 104 97 - 107 mmol/L 11/24/2022 1:56 PM EDT [facility] CO2, Plasma 25 22 - 29 mmol/L 11/24/2022 1:56 PM EDT [facility] Anion Gap 10 6 - 16 mmol/L 11/24/2022 1:56 PM EDT [facility] Total Calcium, Plasma 9.2 8.9 - 10.2 mg/dL 11/24/2022 1:56 PM EDT [facility] Total Protein 7.3 5.7 - 8.0 g/dL 11/24/2022 1:56 PM EDT [facility] Albumin, Plasma 4.5 3.5 - 5.2 g/dL 11/24/2022 1:56 PM EDT [facility] AST, Plasma 16 11 - 32 U/L 11/24/2022 1:56 PM EDT [facility] ALT, Plasma 10 8 - 33 U/L 11/24/2022 1:56 PM EDT [facility] Alkaline Phosphatase, Plasma 78 52 - 144 U/L 11/24/2022 1:56 PM EDT [facility] Total Bilirubin, Plasma 0.5 0.2 - 1.1 mg/dL 11/24/2022 1:56 PM EDT [facility] eGFRcr 130.1 mL/min/1.7 3m*2 11/24/2022 1:56 PM EDT [facility] Comment: Reported eGFRcr in mL/min/1.73m2 is based the CKD-EPI 2021 equation that does not use a race coefficient. Effective 02/03/22 our laboratory changed the eGFR calculation to the CKD-EPI 2021 equation from the previously reported eGFR, based on the MDRD equation. ??For comparisons between the two equations, please see laboratory website: ??[email or web address] Blood Venous blood specimen / Unknown Venipuncture / Unknown 11/24/2022 11:49 AM EDT 11/24/2022 11:49 AM EDT Joe Marc MD LAB BLOOD ORDERABLES Final Res ult [facility] [address] [place] [address] * (ABNORMAL) CBC and differential (11/24/2022 11:49 AM EDT) WBC Count 6.31 3.70 - 10.30 10*3/uL LAB HEMATOLOGY METHOD 11/24/2022 12:55 PM EDT [facility] RBC Count 4.43 3.90 - 5.20 10*6/uL LAB HEMATOLOGY METHOD 11/24/2022 12:55 PM EDT [facility] HGB 12.7 11.2 - 15.7 g/dL LAB HEMATOLOGY METHOD 11/24/2022 12:55 PM EDT [facility] HCT 38.2 34.0 - 45.0 % LAB HEMATOLOGY METHOD 11/24/2022 12:55 PM EDT [facility] Platelet Count 294 155 - 369 10*3/uL LAB HEMATOLOGY METHOD 11/24/2022 12:55 PM EDT [facility] MCV 86 79 - 98 fL LAB HEMATOLOGY METHOD 11/24/2022 12:55 PM EDT [facility] MCH 28.7 26.0 - 32.0 pg LAB HEMATOLOGY METHOD 11/24/2022 12:55 PM EDT [facility] MCHC 33.2 30.7 - 35.5 g/dL LAB HEMATOLOGY METHOD 11/24/2022 12:55 PM EDT [facility] RDW 12.0 11.5 - 14.5 % LAB HEMATOLOGY METHOD 11/24/2022 12:55 PM EDT [facility] MPV 10.5 8.8 - 12.5 fL LAB HEMATOLOGY METHOD 11/24/2022 12:55 PM EDT [facility] nRBC 0.0 <=0.0 per 100 WBCs LAB HEMATOLOGY METHOD 11/24/2022 12:55 PM EDT [facility] Differential Type Automated LAB HEMATOLOGY METHOD 11/24/2022 12:55 PM EDT [facility] Neutrophils % 61.0 % LAB HEMATOLOGY METHOD 11/24/2022 12:55 PM EDT [facility] Lymphocytes % 30.0 % LAB HEMATOLOGY METHOD 11/24/2022 12:55 PM EDT [facility] Monocytes % 4.0 % LAB HEMATOLOGY METHOD 11/24/2022 12:55 PM EDT [facility] Eosinophils % 4.0 % LAB HEMATOLOGY METHOD 11/24/2022 12:55 PM EDT [facility] Basophils % 1.0 % LAB HEMATOLOGY METHOD 11/24/2022 12:55 PM EDT [facility] Immature Granulocytes % 0.0 % LAB HEMATOLOGY METHOD 11/24/2022 12:55 PM EDT [facility] Neutrophils Absolute 3.84 1.60 - 6.10 10*3/uL LAB HEMATOLOGY METHOD 11/24/2022 12:55 PM EDT [facility] Lymphocytes Absolute 1.87 1.20 - 3.90 10*3/uL LAB HEMATOLOGY METHOD 11/24/2022 12:55 PM EDT [facility] Monocytes Absolute 0.25(L) 0.30 - 0.90 10*3/uL LAB HEMATOLOGY METHOD 11/24/2022 12:55 PM EDT [facility] Eosinophils Absolute 0.27 0.00 - 0.50 10*3/uL LAB HEMATOLOGY METHOD 11/24/2022 12:55 PM EDT [facility] Basophils Absolute 0.06 0.00 - 0.10 10*3/uL LAB HEMATOLOGY METHOD 11/24/2022 12:55 PM EDT [facility] Immature Granulocytes Absolute 0.02 0.00 - 0.06 10*3/uL LAB HEMATOLOGY METHOD 11/24/2022 12:55 PM EDT [facility] Blood Venous blood specimen / Unknown Venipuncture / Unknown 11/24/2022 11:49 AM EDT 11/24/2022 11:49 AM EDT Narrative [facility] - 11/24/2022 12:55 PM EDT Therapeutic decision making should be based on absolute values, rather than percentages. us Joe Marc MD LAB BLOOD ORDERABLES Final Res ult [facility] [address] [place] [address] documented in this encounter Visit Diagnoses Diagnosis Chronic abdominal pain- Primary Abdominal pain, unspecified site documented in this encounter Additional Health Concerns Assessment Noted Time A fall risk assessment has been complete d for the patient 11/24/2022 10:50 AM EDT documented as of this encounter Care Teams Oracle Application Architect Relationship Specialty Start Date End Date Domenico Jameson MD [address] [place] [address] PCP - General 11/21/20 documented as of this encounter
--- OUTSIDE RECORDS SUMMARY | 2024-05-28 09:28 | XMS_ITS | Encounter Summary ---
Author Organization [facility] Address [address] [place] [address] Care Team Providers Care Bellhop Name Role Phone Domenico Jameson MD Primary Care Provider [phone] Encounter Details Date Type Department Care Team (Latest Contact Info) Description 09/13/2022 Travel 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 Tobacco Use Types Packs/Day Years [...] suspected to have Coronavirus/COVID-19? No / Unsure 09/13/2022 9:29 AM EST documented as of this encounter Plan of Treatment Not on file documented as of this encounter Visit Diagnoses Not on filedocumented in this encounter Additional Health Concerns Assessment Noted Time A fall risk assessment has been complete d for the patient 09/13/2022 9:49 AM EST documented as of this encounter Care Teams Bellhop Relationship Specialty Start Date End Date Domenico Jameson MD [address] [place] [id number] PCP - General 11/21/20 documented as of this encounter
--- OUTSIDE RECORDS SUMMARY | 2024-05-28 09:28 | XMS_ITS | Encounter Summary ---
Author Organization Healthcare Address [address] [id number] Care Team Providers Care Pin Game Machine Inspector Name Role Phone Domenico Jameson MD Primary Care Provider [phone] Reason for Visit * Reason Onset Date Comments Results 05/08/2021 Encounter Details Date Type Department Care Team (Late st Contact Info) Description 05/08/2021 Telephone [facility] [address] [place] [address] Mj Reynolds MD [address] [facility] [address] [place] [address] Results 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 Tobacco Use Types Packs/Day Years [...] AM EDT documented as of this encounter Miscellaneous Notes * Telephone Encounter - Mitzy Garrison RN - 05/08/2021 12:22 PM EDT RN spoke to patient's mom, Kyleigh, to relay Holter results. Per Dr. Reynolds, Holter report showed no episodes of SVT. There were, however, button presses indicated on the report. RN asked mom if patient was having typical palpitation symptoms when the button was pushed. Mom stated that sometimes Roxi was having fast heart beats and sometimes she was experiencing chest pain. Mom states the chest pain occurred in the center of chest and under both breasts, typically lasting 1-2 minutes then stopped. Instructed mom that due to normal Holter report, we do not need to schedule a follow up at this time, but advised mom that if Roxi continues having symptoms to give us a call. Mom acknowledged understanding and had no further questions or concerns at this time. Mitzy Garrison RN documented in this encounter Plan of Treatment Not on file documented as of this encounter Visit Diagnoses Not on filedocumented in this encounter Additional Health Concerns Assessment Noted Time A fall risk assessment has been complete d for the patient 04/01/2021 10:27 AM EDT documented as of this encounter Care Teams Pin Game Machine Inspector Relationship Specialty Start Date End Date Domenico Jameson MD [address] [place] [address] PCP - General 11/21/20 documented as of this encounter
--- OUTSIDE RECORDS SUMMARY | 2024-05-28 09:28 | XMS_ITS | Encounter Summary ---
Author Organization Healthcare Address [address] [id number] Care Team Providers Care Building Construction Contractor Name Role Phone Domenico Jameson MD Primary Care Provider [phone] Reason for Visit * Reason Onset Date Comments HCN Clinical Concern/Question 11/10/2022 Encounter Details Date Type Department Care Team (Late st Contact Info) Description 11/10/2022 Telephone [facility] [address], [address] [place] [address] Joe Marc MD [address] [facility] [address] [place] [address] HCN Clinical Concern/Question 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 Tobacco Use Types Packs/Day Years [...] encounter Miscellaneous Notes * Telephone Encounter - Jayesh James - 11/11/2022 9:27 AM EDT Mom was called and she just wants to leave her current appt time on 11/24/[address] Marc. Thanks * Telephone Encounter - Amadou Paezmary Heller - 11/10/2022 9:14 AM EDT Clinical Concern/Question Reason for Call: Mom called to advised she is getting a stool sample done in the next day or two when can get the sample to the lab/clinic she is having flare ups. 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 Thank you. Best contact number: [phone] (home) Optimal time of day to reach caller: ANYTIME Additional comments/information from caller: None Note: Please do not reply to this message. Follow-up communication and further actions as a result of this message need to be communicated with the patient directly, if the patient is not active onMyChart. If the patient is active on MyChart, they will receive notification of the communication/outcome via uConnect. documented in this encounter Plan of Treatment Not on file documented as of this encounter Visit Diagnoses Not on filedocumented in this encounter Additional Health Concerns Assessment Noted Time A fall risk assessment has been complete d for the patient 09/13/2022 9:49 AM EST documented as of this encounter Care Teams Building Construction Contractor Relationship Specialty Start Date End Date Domenico Jameson MD [address] [place] [id number] PCP - General 11/21/20 documented as of this encounter
--- OUTSIDE RECORDS SUMMARY | 2024-05-28 09:28 | XMS_ITS | Encounter Summary ---
Author Organization [facility] Address [address] [place] [address] Care Team Providers Care Floor Nurse Name Role Phone Domenico Jameson MD Primary Care Provider [phone] Encounter Details Date Type Department Care Team (Latest Contact Info) Description 11/24/2022 Travel 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 Tobacco Use Types Packs/Day [...] on file documented as of this encounter Plan of Treatment Not on file documented as of this encounter Visit Diagnoses Not on filedocumented in this encounter Additional Health Concerns Assessment Noted Time A fall risk assessment has been complete d for the patient 11/24/2022 10:50 AM EDT documented as of this encounter Care Teams Floor Nurse Relationship Specialty Start Date End Date Domenico Jameson MD [address] [place] [id number] PCP - General 11/21/20 documented as of this encounter
--- OUTSIDE RECORDS SUMMARY | 2024-05-28 09:28 | XMS_ITS | Encounter Summary ---
Author Organization [facility] Address [address] [place] [address] Care Team Providers Care Flat Surfacer Jewel Name Role Phone Domenico Jameson MD Primary Care Provider Encounter Details Date Type Department Care Team (Latest Contact Info) Description 03/30/2022 Travel 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 Tobacco Use Types Packs/Day Years Used Date Smoking Tobacco: Never Passive Smoke Exposure: Yes Smokeless Tobacco: Never Comments Unknown Sex and [...] AM EDT documented as of this encounter Plan of Treatment Not on file documented as of this encounter Visit Diagnoses Not on filedocumented in this encounter Additional Health Concerns Assessment Noted Time A fall risk assessment has been complete d for the patient 03/30/2022 11:11 AM EDT documented as of this encounter Care Teams Flat Surfacer Jewel Relationship Specialty Start Date End Date Domenico Jameson MD [address] [place] [id number] PCP - General 11/21/20 documented as of this encounter
--- OUTSIDE RECORDS SUMMARY | 2024-05-28 09:28 | XMS_ITS | Encounter Summary ---
Author Organization Healthcare Address [address] [id number] Care Team Providers Care Record Producer Name Role Phone Domenico Jameson MD Primary Care Provider [phone] Reason for Visit * Reason Onset Date Comments HCN Same Day Appt/Overbook Request 10/06/2022 Encounter Details Date Type Department Care Team (Late st Contact Info) Description 10/06/2022 Telephone [place] [facility] [address], [address] [place] [address] Joe Marc MD [address] [facility] [address] [place] [address] HCN Same Day Appt/Overbook Request 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 Tobacco Use Types Packs/Day Years [...] AM EST documented as of this encounter Miscellaneous Notes * Telephone Encounter - Melquiades Correia - 10/06/2022 8:07 AM EDT Same Day Appt/Overbook Request Reason for Call: Patient's mother requests overbook for sooner appt due to bumped appt. Pt Scheduled for first available of 01/12/23 Best contact number: [phone] (home) Optimal time of day to reach caller: ANYTIME Additional comments/information from caller: None Note: Please do not reply to this message. Follow-up communication and further actions as a result of this message need to be communicated with the patient directly, if the patient is not active onMyChart. If the patient is active on MyChart, they will receive notification of the communication/outcome via Clicknation. documented in this encounter Plan of Treatment Not on file documented as of this encounter Visit Diagnoses Not on filedocumented in this encounter Additional Health Concerns Assessment Noted Time A fall risk assessment has been complete d for the patient 09/13/2022 9:49 AM EST documented as of this encounter Care Teams Record Producer Relationship Specialty Start Date End Date Domenico Jameson MD [address] [place] [address] PCP - General 11/21/20 documented as of this encounter
--- OUTSIDE RECORDS SUMMARY | 2024-05-28 09:28 | XMS_ITS | Encounter Summary ---
Author Organization Healthcare Address [address] [place] [address] Care Team Providers Care Scratcher Tender Name Role Phone Domenico Jameson MD Primary Care Provider [phone] Encounter Details Date Type Department Care Team (Latest Contact Info) Description 04/20/2021 Travel 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 Tobacco Use Types Packs/Day Years Used Date Smoking Tobacco: Passive Smo ke Exposure - Never Smoker Comments Unknown Sex and Gender Information Value Date Recorded Sex Assigned at Not on file Legal Sex Female 6:31 PM EDT Gender Identity Not on file Sexual Orientation Not on file COVID-19 Exposure Response Date Recorded In the last month, have you been in contact with someone who was confirmed or suspected to have Coronavirus / COVID-19? No / Unsure 04/20/2021 2:41 PM EDT documented as of this encounter Plan of Treatment Not on file documented as of this encounter Visit Diagnoses Not on filedocumented in this encounter Additional Health Concerns Assessment Noted Time A fall risk assessment has been complete d for the patient 04/01/2021 10:27 AM EDT documented as of this encounter Care Teams Scratcher Tender Relationship Specialty Start Date End Date Domenico Jameson MD [address] [place] [address] PCP - General 11/21/20 documented as of this encounter
--- OUTSIDE RECORDS SUMMARY | 2024-05-28 09:28 | XMS_ITS | Encounter Summary ---
Author Organization Healthcare Address [address] [place] [address] Care Team Providers Care Director Medical Science Name Role Phone Domenico Jameson MD Primary Care Provider [phone] Encounter Details Date Type Department Care Team (Late st Contact Info) Description 09/28/2022 Telephone [place] [facility] [address] [place] [id number] Lorelei Funk RN [facility] 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 Tobacco Use Types [...] Telephone Encounter - Keyana Raymond RN - 11/03/2022 8:43 AM EDT Mailed letter trying to contact. * Telephone Encounter - Keyana Raymond RN - 11/01/2022 8:33 AM EDT Spoke with Mom, they have not completed stool collection yet. Let Mom know we will send letter in mail and she can contact us when completed. * Telephone Encounter - Keyana Raymond RN - 10/15/2022 8:33 AM EDT Spoke with Mom, they have not completed stool collection yet. Mom says they will drop at [facility]. RN advised to call when dropped off so we can follow results. * Telephone Encounter - Lorelei Funk RN - 09/28/2022 9:11 AM EDT Spoke with mother, asking if stool order is still good, planning to collect now and has follow up with [facility] documented in this encounter Plan of Treatment Not on file documented as of this encounter Visit Diagnoses Not on filedocumented in this encounter Additional Health Concerns Assessment Noted Time A fall risk assessment has been complete d for the patient 09/13/2022 9:49 AM EST documented as of this encounter Care Teams Director Medical Science Relationship Specialty Start Date End Date Domenico Jameson MD [address] [place] [address] PCP - General 11/21/20 documented as of this encounter
--- OUTSIDE RECORDS SUMMARY | 2024-05-28 09:28 | XMS_ITS | Encounter Summary ---
Author Organization [facility] Address [address] [place] [address] Care Team Providers Care Pci Security Consultant Name Role Phone Domenico Jameson MD Primary Care Provider [phone] Encounter Details Date Type Department Care Team (Latest Contact Info) Description 10/14/2021 Travel 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 Tobacco Use Types Packs/Day [...] have Coronavirus / COVID-19? No / Unsure 10/14/2021 9:42 AM EDT documented as of this encounter Plan of Treatment Not on file documented as of this encounter Visit Diagnoses Not on filedocumented in this encounter Additional Health Concerns Assessment Noted Time A fall risk assessment has been complete d for the patient 10/14/2021 9:47 AM EDT documented as of this encounter Care Teams Pci Security Consultant Relationship Specialty Start Date End Date Domenico Jameson MD [address] [place] [address] PCP - General 11/21/20 documented as of this encounter
--- OUTSIDE RECORDS SUMMARY | 2024-05-28 09:28 | XMS_ITS | Encounter Summary ---
Author Organization [facility] Address [address] [place] [address] Care Team Providers Care J2Ee Software Engineer Name Role Phone Domenico Jameson MD Primary Care Provider [phone] Reason for Visit * Reason Comments New Patient New patient. Would l kaiser to discuss birthcontrol. Has been on pill in the past. Low sex drive. Wants to discuss anxiety medication. Encounter Details Date Type Department Care Team (Late st Contact Info) Description 09/13/2022 9:30 AM EST Office Visit Obstetrics & Gynecology [address] [place] [address] Radha Naidu MD [address] [place] [address] Encounter for initial prescription of contraceptive pills (Primary Dx); Low libido 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 Tobacco Use Types Packs/Day Years [...] AM EST documented as of this encounter Last Filed Vital Signs Vital Sign Reading Time Taken Comments Blood Pressure 111/75 09/13/2022 9:46 AM EST Pulse 75 09/13/2022 9:46 AM EST Temperature 36.7 ??C (98.1 ??F) 09/13/2022 9:46 AM ES T Respiratory Rate 17 09/13/2022 9:46 AM EST Oxygen Saturation 97% 09/13/2022 9:46 AM EST Inhaled Oxygen Concentration - - Weight 44.7 kg (98 lb 8.7 oz) 09/13/2022 9:46 AM EST Height 162.6 cm (5' 4 ) 09/13/2022 9:46 AM EST Body Mass Index 16.92 09/13/2022 9:46 AM EST Body Mass Index Percentile 1.73% 09/13/2022 9:4 6 AM EST Growth Chart: [facility] (Girls, 2- 20 Years) documented in this encounter Miscellaneous Notes * Assessment & Plan Note - Radha Naidu MD - 09/13/2022 11:02 AM EST Associated Problem(s): Low libido - we discussed that antidepressants like lexapro can cause decreased libido. - we discussed that Wellbutrin may be a good option; however, since she has a mood disorder that she should see her prescribing provider to switch medications are certain antidepressants can make mood disorders worse * Assessment & Plan Note - Radha Naidu MD - 09/13/2022 11:01 AM EST Associated Problem(s): Encounter for initial prescription of contraceptive pills - heavy painful periods - has tried a few different types of OCPs before. Not interested in other options - sprintec Rx sent - discussed starting paps at 20 yo - RTC 3 month for symptom eval * Progress Notes - Radha Naidu MD - 09/13/2022 9:30 AM EST Gynecology Note Subjective Chief Complaint Patient presents with New Patient New patient. Would like to discuss birthcontrol. Has been on pill in the past. Low sex drive. Wantsto discuss anxiety medication. Roxi Wilkinson is a 17 y.o. G0 here for a new gynecologic visit. 17yo G0 here today to establish care. She is interested in contraception. Has used OCPs in the past. Is not interested in other options. Is sexually active with 1 partner, long-term relationship. Hasmood disorder - is on lexapro. She has been on it for around 1 year. She has low libido, wondering if it has to do with lexapro. Also has heavy painful periods with large clots. She feels better off control, but would like contraception as she is sexually active. Past Medical History She has a past medical history of Anxiety, Depression, Enterocolitis due to Clostridium difficile, not specified as recurrent, Migraines, Personal history of other diseases of urinary system, and Proteinuria, unspecified. Past Surgical History She has a past surgical history that includes Myringotomy without tubes (N/A) and Dental surgery (2020). 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 She reports that she has never smoked. She has been exposed to tobacco smoke. She has never used smokeless tobacco. She reports that she does not drink alcohol and does not use drugs. Family History Her family history includes Breast cancer in her maternal grandmother and another family member; COPD in her father and other family members; Cardiac disorder in some other family members; Diabetes in some other family members; DION disease in her mother; Hypertension in her father and other family members; Ulcers in her maternal grandmother; breast cancer in her maternal grandmother. Current Medications She has a current medication list which includes the following prescription(s): bisacodyl, escitalopram, flovent hfa, multivitamin, norgestimate-ethinyl estradiol, ondansetron, polyethylene glycol, proair hfa, probiotic product, and ergocalciferol. Allergies Allergies Allergen Reactions Azithromycin Hives Augmentin [Amoxicillin-Pot Clavulanate] Rash Prednisone Rash Review of Systems Constitutional: Positive for unexpected weight change. Negative for fatigue and fever. HENT: Negative. Eyes: Negative. Respiratory: Negative for shortness of breath and wheezing. Cardiovascular: Negative for chest pain, palpitations and leg swelling. Gastrointestinal: Negative for abdominal pain, constipation, diarrhea, nausea and vomiting. Endocrine: Negative. Negative for cold intolerance and heat intolerance. Genitourinary: Positive for menstrual problem and pelvic pain. Negative for difficulty urinating, dyspareunia and dysuria. Musculoskeletal: Negative for arthralgias and back pain. Neurological: Negative for syncope and numbness. Hematological: Negative. Psychiatric/Behavioral: Negative for self-injury and suicidal ideas. The patient is nervous/anxious. Objective Visit Vitals BP 111/75 Pulse 75 Temp 36.7 ??C (98.1 ??F) Resp 17 Body mass index is 16.92 kg/m??. Physical Exam Constitutional: Appearance: Normal appearance. HENT: Head: Normocephalic and atraumatic. Cardiovascular: Rate and Rhythm: Normal rate and regular rhythm. Pulmonary: Effort: Pulmonary effort is normal. Abdominal: General: There is no distension. Palpations: Abdomen is soft. Tenderness: There is no abdominal tenderness. Neurological: General: No focal deficit present. Mental Status: She is alert and oriented to person, place, and time. Psychiatric: Mood and Affect: Mood normal. Behavior: Behavior normal. Vitals reviewed. Assessment/Plan Problem List Items Addressed This Visit Other Encounter for initial prescription of contraceptive pills - Primary - heavy painful periods - has tried a few different types of OCPs before. Not interested in other options - sprintec Rx sent - discussed starting paps at 20 yo - RTC 3 month for symptom eval Relevant Medications norgestimate-ethinyl estradiol (Sprintec 28) 0.25-35 MG-MCG tablet Low libido - we discussed that antidepressants like lexapro can cause decreased libido. - we discussed that Wellbutrin may be a good option; however, since she has a mood disorder that she should see her prescribing provider to switch medications are certain antidepressants can make mood disorders worse Time Spent: I personally spent a total of 31 minutes on this encounter. This time includes face to face with patient, counseling and discussion and/or coordination of care. documented in this encounter Plan of Treatment Not on file documented as of this encounter Visit Diagnoses Diagnosis Encounter for initial prescription of contraceptive pills- Primary Low libido documented in this encounter Additional Health Concerns Assessment Noted Time A fall risk assessment has been complete d for the patient 09/13/2022 9:49 AM EST documented as of this encounter Care Teams J2Ee Software Engineer Relationship Specialty Start Date End Date Domenico Jameson MD [address] [place] [id number] PCP - General 11/21/20 documented as of this encounter
--- OUTSIDE RECORDS SUMMARY | 2024-05-28 09:28 | XMS_ITS | Encounter Summary ---
Author Organization [facility] Address [address] [place] [address] Care Team Providers Care School Attendance Secretary Name Role Phone Domenico Jameson MD Primary Care Provider [phone] Encounter Details Date Type Department Care Team (Latest Contact Info) Description 04/30/2021 Travel 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 Tobacco Use Types Packs/Day [...] documented as of this encounter Care Teams School Attendance Secretary Relationship Specialty Start Date End Date Domenico Jameson MD [address] [place] [id number] PCP - General 11/21/20 documented as of this encounter
--- OUTSIDE RECORDS SUMMARY | 2024-05-28 09:28 | XMS_ITS | Encounter Summary ---
Author Organization [facility] Address [address] [id number] Care Team Providers Care Rounder And Backer Name Role Phone Domenico Jameson MD Primary Care Provider [phone] Reason for Referral * Cardiac Stress Testing (Routine) - Closed Specialty Diagnoses / Procedures Referred By Yony yung Referred To Contact Cardiology Diagnoses Palpitations Procedures Pediatric Holter Monitor Mj Reynolds MD [address] [facility] [address] [place] [address] Phone: tel: fax: Referral ID Status Reason Start Date Expiration Date Visits Re quested Visits Authorized [id number] Closed 04/30/2021 10/30/2022 1 1 Reason for Visit * Reason Comments Consult chest pain/SVT * Consultation (Routine) - Closed Specialty Diagnoses / Procedures Referred By Yony yung Referred To Contact Pediatric Cardiology Diagnoses SVT (supraventricular tachycardia) ([facility]/HCC) Shilo Penaloza MD [address] [address] Phone: tel: fax: Referral ID Status Reason Start Date Expiration Date V isits Requested Visits Authorized [id number] Closed Specialty Services Required 04/29/2021 10/29/2022 1 1 Encounter Details Date Type Department Care Team (Late st Contact Info) Description 04/30/2021 11:45 AM EDT Consult [facility] Pediatric Cardiology [address] [place] [address] Mj Reynolds MD [address] [place] [address] Supraventricular tachycardia (CMS/HCC) (Primary Dx); SVT (supraventricular tachycardia) (CMS/HCC); Palpitations 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 Tobacco Use Types Packs/Day Years [...] Sign Reading Time Taken Comments Blood Pressure 108/71 04/30/2021 12:03 PM EDT Pulse 67 04/30/2021 12:03 PM EDT Temperature - - Respiratory Rate 20 04/30/2021 12:0 3 PM EDT Oxygen Saturation 98% 04/30/2021 12: 03 PM EDT Inhaled Oxygen Concentration - - Weight 51.9 kg (114 lb 8.5 oz) 04/30/20 12:03 PM EDT Height 162.3 cm (5' 3.9 ) 04/30/2021 12 :03 PM EDT Body Mass Index 19.72 04/30/2021 12:03 PM EDT Body Mass Index Percentile 33.63% 04/30 12:03 PM EDT Growth Chart: CDC (Girls, 2- 20 Years) documented in this encounter Miscellaneous Notes * Progress Notes - Mj Reynolds MD - 04/30/2021 11:45 AM EDT [facility] Division of Pediatric Cardiology Subjective Roxicarla Wilkinson presents to the Pediatric Cardiology Clinic today with her mother, who helps provide the history. Roxi is a 16 y.o. female who presents today for a consultation of multiple symptoms felt to be potentially cardiac in nature. She was referred by Dr. Penaloza. There was also a Holter monitor recently worn and downloaded. The reading physician who signed the report wrote that there was an episode of SVT, however I cannot see this in any of the strips printed in the report nor can I see any heart rates typical of SVT. The highest heart rate in the data section was in the 160s and the reading technologists did not find an episode of SVT. It is therefore unclear if Roxi did indeed experience an episode of SVT. The patient and her mother states that since an upper respiratory tract infection in February 2020, she has not been well since. When I ask Roxi what her most significant symptom is he starts with chest pain. 1) Chest pain: The chest pain has been going on for approximately 1 month. It is sharp/stabbing in nature. The longest time an episode can last is about 30 minutes. She often experiences it a few days a week. It is not severe in nature. It is central in her chest and does not radiate. There is no change in the pain with position. It does not occur with exercise. 2) Palpitations: Every day a few times a day she feels her heart rate elevated. She reports that itgradually increases but suddenly stops. She has not counted the rate but when I tap it heart, it only feels mildly elevated and not at rates typical of SVT. The patient's mother also to me that she has a saturation and heart rate improved at home and she has only seen a maximum heart rate of 130 when Roxi has had her symptoms. The palpitations characteristically only last a few seconds and butused to last longer. She has been prescribed metoprolol but has not started to take medication. 3) Shortness of breath: The patient states that she has recently been prescribed a preventative inhaler that since this, her symptoms of shortness of breath has been significantly reduced. The patient sometimes feels short of breath when she has her chest pain or palpitations. However this has alsogotten better. It tele she has not been prescribed at rescue albuterol inhaler because of the concern for high heart rates and possible SVT. She denies syncope. The patient does have problems with anxiety and depression and notes that this may be contributing to her symptoms. I confirmed with the patient and her mother that indeed all 3 of her symptoms can be associated with anxiety and low mood. Although the symptoms are therefore not physical/organic in nature they do not feel any less significant to the patient. Cardiac History: Roxi Wilkinson has no known history of heart murmur, stroke, hypertension, diabetes, Kawasaki disease, or hyperlipidemia. Problem List: Patient Active Problem List Diagnosis ??? Constipation ??? Periumbilical abdominal pain ??? Other chest pain Past Medical History: Past Medical History: Diagnosis Date ??? Anxiety ??? Depression ??? 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 Migraines ??? Personal history of other diseases of urinary system History of hematuria ??? Personal history of other specified conditions History of diarrhea ??? Personal history of urinary (tract) infections History of urinary tract infection ??? Proteinuria, unspecified Proteinuria ??? Strep throat 04/27/2021 Past Surgical History: Past Surgical History: Procedure Laterality Date ??? DENTAL SURGERY 2020 wisdom teeth ??? MYRINGOTOMY WTHOUT TUBES N/A Myringotomy from [employer] Family History: No history of congenital heart disease, sudden cardiac , inheritable cardiomyopathies, or cardiac arrhythmias/channelopathies. Family History Problem Relation Name Age of Onset ??? Cardiac disorder Other ??? Cardiac disorder Other ??? COPD Other ??? COPD Other ??? Diabetes Other ??? Diabetes Other ??? Hypertension Other ??? Hypertension Other ??? Breast cancer Maternal Grandmother ??? Ulcers Maternal Grandmother ??? Breast cancer Other ??? DION disease Mother ??? COPD Father ??? Hypertension Father 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: Pediatric History Patient Parents/Guardians ??? RemyKyleigh gould (Mother/Guardian) Other Topics Concern ??? Not on file 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 Narrative Secondhand smoke exposure Occasional caffeine use 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 Tobacco Use ??? Smoking status: Passive Smoke Exposure - Never Smoker ??? Smokeless tobacco: Never Used Vaping Use ??? Vaping Use: Never used Substance Use Topics ??? Alcohol use: Not on file ??? Drug use: Not on file Medications: Current Outpatient Medications Medication Instructions ??? cephalexin (Keflex) 500 MG capsule TAKE ONE CAPSULE BY MOUTH TWICE DAILY FOR 10 DAYS -- FINISH ALL MEDICINE -- ??? erythromycin ethylsuccinate (E.E.S. Granules) 200 MG/5ML suspension Take 160 mg or 4 mls Three times daily half an hour before meals ??? escitalopram (Lexapro) 5 MG tablet TAKE ONE TABLET BY MOUTH ONCE a DAY DIRECTED ??? Flovent HFA 110 MCG/ACT inhaler 1 puff, Inhalation, 2 times daily RT ??? Multiple Vitamin (multivitamin) tablet 1 tablet, Oral, Daily ??? norethindrone-ethinyl estradiol (Microgestin 07/30) 1-20 MG-MCG tablet 1 tablet, Oral, Daily ??? omeprazole (PRILOSEC) 20 mg, Oral, Daily ??? Probiotic Product (PROBIOTIC PO) No dose, route, or frequency recorded. ??? risperiDONE (RisperDAL) 1 MG tablet TAKE ONE TABLET BY MOUTH EVERY DAY AT BEDTIME DIRECTED ??? VITAMIN D, ERGOCALCIFEROL, PO Oral Allergies: Allergies Allergen Reactions ??? Augmentin [Amoxicillin-Pot Clavulanate] Rash ??? Prednisone Rash Review of Systems: - anxiety, low mood - URTI symptoms have now improved Objective Physical Exam: Visit Vitals BP 108/71 (BP Location: Right arm, Patient Position: Sitting, BP Cuff Size: Adult) Pulse 67 Resp 20 Ht 1.623 m (5' 3.9 ) Wt 51.9 kg (114 lb 8.5 oz) SpO2 98% BMI 19.72 kg/m?? Smoking Status Passive Smoke Exposure - Never Smoker BSA 1.53 m?? BMI PERCENTILE: 34 %ile (Z= -0.42) based on CDC (Girls, 2-20 Years) BMI-for-age based on BMI available as of 04/30/2021. Constitutional: No acute distress, well appearing. Slim Head and Face: Normocephalic. No dysmorphic features Chest: Symmetrical without deformity. No tenderness Pulmonary: Normal respiratory effort without retractions or tachypnea. Good air movement without crackles or wheezes. Cardiovascular: Palpation: Normoactive cardiac impulse without heaves or thrills. Auscultation: Regular rhythm with a normal S1 and S2. Normal heart rate. No murmurs, rubs, clicks, or gallops. Femoral pulses: Normal intensity without brachio/radial-femoral delay Edema: No edema present Abdomen: Soft and non-distended without obvious tenderness. Normal bowel sounds. No palpable organomegaly or masses. Musculoskeletal: Nails/digits normal without clubbing, cyanosis, or deformities. Skin: Warm and well perfused without obvious rashes or skin lesions. Neurological: Grossly normal for age. Symmetric facies. Able to move all four extremities. Psychiatric: Oriented to person, place, and time. Normal mood and affect. Diagnostic Studies (personally reviewed): ELECTROCARDIOGRAM: Encounter Date: 04/30/21 ECG Pediatric Result Value EKG DIAGNOSIS CLASS Abnormal Ventricular Rate 67 Atrial Rate 67 WY Interval 148 QRSD Interval 90 QT Interval 386 QTC Interval 408 P Houston 41 R [place] 71 T Wave [place] 55 Diagnosis Normal sinus rhythm Diagnosis with sinus arrhythmia Diagnosis Nonspecific T wave abnormality Diagnosis No previous ECGs available Diagnosis Confirmed by Mj Reynolds () on 04/30/2021 5:17:24 PM ECHOCARDIOGRAM: Not indicated. Assessment: Assessment/Plan Roxi Wilkinson is a 16 y.o. 0 m.o. female who was seen today for chest pain, shortness of breath and palpitations with a ? episode of SVT on a Holter monitor. Discussion: - Roxi's chest pain signs more musculoskeletal in nature. There are no red flags for cardiac chest pain. It is possible that her anxiety could be causing arteries contributing to the sensation of chest pain. I have reassured the patient and her mother - From the history provided and the documentation by the mother of heart rates no higher than 130 at the time of palpitations, it is unlikely that the patient's palpitations represent an arrhythmia. I did not see any evidence of an SVT on the Holter monitor with only some episodes of sinus tachycardia. Again the symptom could be related to anxiety - Roxi's shortness of breath has improved with preventative inhaler use by her own report. This may suggest reactive airways. There is no contraindication to her having a rescue albuterol inhaler.There is of course a side effect of sinus tachycardia, so with the patient experiences this and is symptomatic she can choose to not use this inhaler. Recommendations: We have sent the patient home with a Holter monitor in order to document a rhythm strip at the timeof her palpitations, since she gets them frequently. We would like to rule out SVT at the cause of the symptoms especially after this has been suggested already. Any cardiology follow-up will depend on these results. I will refer to the PCP regards follow-up of potential reactive airways disease and best managementof ACTIVITY RECOMMENDATIONS: No activity/sports restrictions. Mj Reynolds MD documented in this encounter Plan of Treatment Not on file documented as of this encounter Procedures Procedure Name Priority Date/Time Associated Diagnosis Comments ECG PEDIATRIC Routine 04/30/2021 12:00 PM EDT Supraventricular tachycardia (CMS/HCC) documented in this encounter Results * PEDIATRIC [...] CV CARDIAC SERVICES PROCEDU RES Final Result * ECG Pediatric (04/30/2021 12:00 PM EDT) EKG DIAGNOSIS CLASS Abnormal MUSE ECG Ventricular Rate 67 BPM MUSE ECG Atrial Rate 67 BPM MUSE ECG WY Interval 148 ms MUSE ECG QRSD Interval 90 ms MUSE ECG QT Interval 386 ms MUSE ECG QTC Interval 408 ms MUSE ECG P [place] 41 degrees MUSE ECG R [place] 71 degrees MUSE ECG T Wave [place] 55 degrees MUSE ECG Diagnosis Normal sinus rhythm MUSE ECG Diagnosis with sinus arrhythmia MUSE ECG Diagnosis Nonspecific T wave abnormality MUSE ECG Diagnosis No previous ECGs available MUSE ECG Diagnosis Confirmed by Mj Reynolds () on 04/30/2021 5:17:24 PM MUSE ECG 04/30/2021 12:0 0 PM EDT 04/30/2021 5:17 PM EDT us Mj Reynolds MD ECG ORDERABLES Final Resul t MUSE ECG documented in this encounter Visit Diagnoses Diagnosis Supraventricular tachycardia (CMS/HCC)- Primary Other specified cardiac dysrhythmias SVT (supraventricular tachycardia) (CMS/HCC) Other specified cardiac dysrhythmias Palpitations Palpitations documented in this encounter Additional Health Concerns Assessment Noted Time A fall risk assessment has been complete d for the patient 04/01/2021 10:27 AM EDT documented as of this encounter Care Teams Rounder And Backer Relationship Specialty Start Date End Date Domenico Jameson MD [address] [place] [id number] PCP - General 11/21/20 documented as of this encounter
--- OUTSIDE RECORDS SUMMARY | 2024-05-28 09:28 | XMS_ITS | Encounter Summary ---
Author Organization Healthcare Address [address] [place] [address] Care Team Providers Care Wood Room Supervisor Name Role Phone Domenico Jameson MD Primary Care Provider [phone] Encounter Details Date Type Department Care Team (Late st Contact Info) Description 2022 Telephone [facility] [address] [place] [id number] Lorelei Funk RN [facility] 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 Tobacco Use [...] encounter Miscellaneous Notes * Telephone Encounter - Lorelei Funk RN - 04/28/2022 8:08 AM EDT mailed * Telephone Encounter - Lorelei Funk RN - 04/27/2022 11:15 AM EDT Mail letter * Telephone Encounter - Lorelei Funk RN - 2022 1:39 PM EDT Spoke with mother, have not collected yet but plans to , taking to [facility] * Telephone Encounter - Lorelei Funk RN - 2022 1:39 PM EDT ----- Message from Lorelei Funk RN sent at 04/07/2022 7:31 AM EDT ----- stool documented in this encounter Plan of Treatment Not on file documented as of this encounter Visit Diagnoses Not on filedocumented in this encounter Additional Health Concerns Assessment Noted Time A fall risk assessment has been complete d for the patient 03/30/2022 11:11 AM EDT documented as of this encounter Care Teams Wood Room Supervisor Relationship Specialty Start Date End Date Domenico Jameson MD [address] [place] [address] PCP - General 11/21/20 documented as of this encounter
--- OUTSIDE RECORDS SUMMARY | 2024-05-28 09:28 | XMS_ITS | Encounter Summary ---
Author Organization Healthcare Address [address] [place] [address] Care Team Providers Care Tail End Rider Name Role Phone Domenico Jameson MD Primary Care Provider [phone] Encounter Details Date Type Department Care Team (Late st Contact Info) Description 12/01/2022 Telephone [place] [facility]ty [address] [place] [id number] Keyana Raymond RN [facility] 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 Tobacco Use [...] Telephone Encounter - Keyana Raymond RN - 12/01/2022 11:23 AM EDT Spoke with Mom, let her know calpro was normal per Dr. Monico whitehead message. She verbalized understanding and had no questions. documented in this encounter Plan of Treatment Not on file documented as of this encounter Visit Diagnoses Not on filedocumented in this encounter Additional Health Concerns Assessment Noted Time A fall risk assessment has been complete d for the patient 11/24/2022 10:50 AM EDT documented as of this encounter Care Teams Tail End Rider Relationship Specialty Start Date End Date Domenico Jameson MD [address] [place] [address] PCP - General 11/21/20 documented as of this encounter
--- OUTSIDE RECORDS SUMMARY | 2024-05-28 09:29 | XMS_ITS | Encounter Summary ---
Author Organization Healthcare Address [address] [place] [address] Care Team Providers Care Quality Lab Technician Name Role Phone Domenico Jameson MD Primary Care Provider [phone] Encounter Details Date Type Department Care Team (Latest Contact Info) Description 04/01/2021 Travel 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 Tobacco Use Types Packs/Day [...] have Coronavirus / COVID-19? No / Unsure 04/01/2021 10:21 AM EDT documented as of this encounter Plan of Treatment Not on file documented as of this encounter Visit Diagnoses Not on filedocumented in this encounter Additional Health Concerns Assessment Noted Time A fall risk assessment has been complete d for the patient 04/01/2021 10:27 AM EDT documented as of this encounter Care Teams Quality Lab Technician Relationship Specialty Start Date End Date Domenico Jameson MD [address] [place] [address] PCP - General 11/21/20 documented as of this encounter
--- OUTSIDE RECORDS SUMMARY | 2024-05-28 09:29 | XMS_ITS | Encounter Summary ---
Author Organization [facility] Address [address] [place] [address] Care Team Providers Care Music Director Name Role Phone Unavailable Primary Care Provider Unavailabl e Encounter Details Date Type Department Care Team (Late st Contact Info) Description 11/08/2013 [facility] Vitals Encounter [facility] OUTPATIENT CONVERSIONS [address] [place] [address] ProviderCarlota MD [address] [place] [address] 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 Tobacco Use Types Packs/Day Years Used Date Smoking Tobacco: Never Assessed Comments Unknown Sex and Gender Information Value Date Recorded Sex Assigned at Not on file Legal Sex Female 6:31 PM EDT Gender Identity Not on file Sexual Orientation Not on file documented as of this encounter Last Filed Vital Signs Vital Sign Reading Time Taken Comments Blood Pressure - - Pulse - - Temperature - - Respiratory Rate - - Oxygen Saturation - - Inhaled Oxygen Concentration - - Weight 24.3 kg (53 lb 9.2 oz) 11/08/2013 9:40 AM EDT Height 125.7 cm (4' 1.49 ) 11/08/2013 9:40 AM ED T Body Mass Index 15.38 11/08/2013 9:40 AM EDT Body Mass Index Percentile 26.69% 11/08/2013 9:4 0 AM EDT Growth Chart: [facility] (Girls, 2- 20 Years) documented in this encounter Plan of Treatment Not on file documented as of this encounter Visit Diagnoses Not on filedocumented in this encounter
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
--- OUTSIDE RECORDS SUMMARY | 2024-05-28 09:29 | XMS_ITS | Encounter Summary ---
Author Organization [facility] Address [address] [place] [address] Care Team Providers Care High School Combination Teacher Name Role Phone Unavailable Primary Care Provider Unavailabl e Encounter Details Date Type Department Care Team (Late st Contact Info) Description 12/29/2015 Legacy AEHR Vitals Encounter [facility] OUTPATIENT CONVERSIONS [address] [place] [address] ProviderCarlota MD [address] [place] [address] 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 Tobacco Use Types Packs/Day Years [...] - Inhaled Oxygen Concentration - - Weight 30.4 kg (67 lb 0.3 oz) 12/29/2015 2:16 PM EDT Height 138.2 cm (4' 6.41 ) 12/29/2015 2:16 PM ED T Body Mass Index 15.92 12/29/2015 2:16 PM EDT Body Mass Index Percentile 18.60% 12/29/2015 2:1 6 PM EDT Growth Chart: [facility] (Girls, 2- 20 Years) documented in this encounter Plan of Treatment Not on file documented as of this encounter Visit Diagnoses Not on filedocumented in this encounter
--- OUTSIDE RECORDS SUMMARY | 2024-05-28 09:29 | XMS_ITS | Encounter Summary ---
Author Organization Healthcare Address [address] [place] [address] Care Team Providers Care Publication Director Name Role Phone Unavailable Primary Care Provider Unavailabl e Encounter Details Date Type Department Care Team (Late st Contact Info) Description 09/20/2013 Legacy AEHR Vitals Encounter [facility] OUTPATIENT CONVERSIONS [address] [place] [address] ProviderCarlota MD [address] [place] [address] 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 Tobacco Use Types Packs/Day Years [...] - Inhaled Oxygen Concentration - - Weight 23.7 kg (52 lb 4 oz) 09/20/2013 9:10 AM E DT Height 126.6 cm (4' 1.84 ) 09/20/2013 9:10 AM ED T Body Mass Index 14.79 09/20/2013 9:10 AM EDT Body Mass Index Percentile 17.02% 09/20/2013 9:1 0 AM EDT Growth Chart: [facility] (Girls, 2- 20 Years) documented in this encounter Plan of Treatment Not on file documented as of this encounter Visit Diagnoses Not on filedocumented in this encounter
--- OUTSIDE RECORDS SUMMARY | 2024-05-28 09:29 | XMS_ITS | Encounter Summary ---
Author Organization [facility] Address [address] [place] [address] Care Team Providers Care Bin Operator Name Role Phone Domenico Jameson MD Primary Care Provider [phone] Reason for Referral * Imaging (Routine) - Closed Specialty Diagnoses / Procedures Referred By Yony yung Referred To Contact Cardiology Diagnoses Other chest pain Procedures Echo, Pediatric Transthoracic (TTE) Complete Shilo Penaloza MD [address] [place] [address] [address] Phone: tel: fax: Referral ID Status Reason Start Date Expiration Date V isits Requested Visits Authorized [id number] Closed Perform Procedure 2021 10/13/2022 1 1 Reason for Visit * Imaging (Routine) - Closed Specialty Diagnoses / Procedures Referred By Yony yung Referred To Contact Cardiology Diagnoses Other chest pain Procedures Echo, Pediatric Transthoracic (TTE) Complete Shilo Penaloza MD [address] [facility] [address] [place] [address] Phone: tel: fax: Referral ID Status Reason Start Date Expiration Date V isits Requested Visits Authorized [id number] Closed Perform Procedure 2021 10/13/2022 1 1 Encounter Details Date Type Department Care Team (Latest Contact Info) Description 04/20/2021 2:42 PM EDT - 04/20/2021 11:59 PM EDT Hospital Encounter [facility] Pediatric Cardiac Diagnostic Testing [address] Floor, [place] [address] Other chest pain Discharge Disposition: Home or Self Care Social [...] PM EDT documented as of this encounter Last Filed Vital Signs Vital Sign Reading Time Taken Comments Blood Pressure 105/71 04/20/2021 2:52 PM EDT Pulse 69 04/20/2021 2:52 PM EDT Temperature - - Respiratory Rate - - Oxygen Saturation - - Inhaled Oxygen Concentration - - Weight 51.9 kg (114 lb 8.5 oz) 04/20/2021 2:52 P M EDT Height 161.6 cm (5' 3.62 ) 04/20/2021 2:52 PM ED T Body Mass Index 19.89 04/20/2021 2:52 PM EDT Body Mass Index Percentile 36.21% 04/20/2021 2:5 2 PM EDT Growth Chart: [facility] (Girls, 2- 20 Years) documented in this encounter Medications at Time of Discharge escitalopram (Lexapro) 5 MG tablet TAKE ONE TABLET BY MOUTH ONCE a DAY DIRECTED 04/14/2021 Flovent HFA 110 MCG/ACT inhaler Inhale 1 puff if needed. 04/14/2021 Multiple Vitamin (multivitamin) tablet Take 1 tablet by mouth 1 (one) time each day. Probiotic Product (PROBIOTIC PO) 12/29/2015 erythromycin ethylsuccinate (E.E.S. Granules) 200 MG/5ML suspension Take 160 mg or 4 mls Three times daily half an hour before meals 360 mL 1 04/01/2021 escitalopram (Lexapro) 10 MG tablet 5mg daily per parent 01/31/2021 1 norethindrone-ethiny l estradiol (Microgestin 07/30) 1-20 MG-MCG [...] Procedure Name Priority Date/Time Associated Diagnosis Comments ECHO, PEDIATRIC TRANSTHORACIC COMPLETE Routine 04/20/2021 3:33 PM EDT Other chest pain documented in this encounter Results * ECHO, PEDIATRIC TRANSTHORACIC COMPLETE (04/20/2021 3:33 PM EDT) Anatomical Region Laterality Modality Echocardiography 04/20/2021 3:01 PM EDT us Shilo Penaloza MD CV ECHO PROCEDURES Final R esult documented in this encounter Visit Diagnoses Diagnosis Other chest pain documented in this encounter Additional Health Concerns Assessment Noted Time A fall risk assessment has been complete d for the patient 04/01/2021 10:27 AM EDT documented as of this encounter Care Teams Bin Operator Relationship Specialty Start Date End Date Domenico Jameson MD [address] [place] [id number] PCP - General 11/21/20 documented as of this encounter
--- OUTSIDE RECORDS SUMMARY | 2024-05-28 09:29 | XMS_ITS | Encounter Summary ---
Author Organization Healthcare Address [address] [id number] Care Team Providers Care Towboat Pilot Name Role Phone Domenico Jameson MD Primary Care Provider [phone] Encounter Details Date Type Department Care Team (Late st Contact Info) Description 03/12/2021 Telephone [facility] [address] [place] [address] Joe Marc MD [address] [place] [address] 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 Tobacco Use Types Packs/Day Years Used Date Smoking Tobacco: Never Comments Unknown Sex and Gender Information Value Date Recorded Sex Assigned at Not on file Legal Sex Female 6:31 PM EDT Gender Identity Not on file Sexual Orientation Not on file documented as of this encounter Miscellaneous Notes * Telephone Encounter - Eun Mcknight, RN - 03/12/2021 9:43 AM EDT Can you change her OV EOE slot to just an OV? Does that matter? It is on 04/01 at 10:00 * Telephone Encounter - Jayesh James - 03/12/2021 9:12 AM EDT Patient Phone Message Reason for Call: Mom is calling to ask for a nurse to call her back about her having increased issues at this time. Best contact number and optimal time of day to reach caller: [phone] Note: Please do not reply to this message. Follow-up communication and further actions as a result of this message need to be communicated with the patient directly, if the patient is not active onMyChart. If the patient is active on MyChart, they will receive notification of the communication/outcome via [employer]. documented in this encounter Plan of Treatment Not on file documented as of this encounter Visit Diagnoses Not on filedocumented in this encounter Care Teams Towboat Pilot Relationship Specialty Start Date End Date Domenico Jameson MD [address] [place] [id number] PCP - General 11/21/20 documented as of this encounter
--- OUTSIDE RECORDS SUMMARY | 2024-05-28 09:29 | XMS_ITS | Encounter Summary ---
Author Organization Healthcare Address [address] [place] [address] Care Team Providers Care Soil Field Technician Name Role Phone Unavailable Primary Care Provider Unavailabl e Encounter Details Date Type Department Care Team (Late st Contact Info) Description 08/19/2016 Legacy AEHR Vitals Encounter [facility] OUTPATIENT CONVERSIONS [address] [place] [address] ProviderCarlota MD [address] [place], [place] [id number] 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 Tobacco Use Types Packs/Day Years [...] - Inhaled Oxygen Concentration - - Weight 32.8 kg (72 lb 5 oz) 08/19/2016 10:21 AM EST Height 142.7 cm (4' 8.18 ) 08/19/2016 10:[address] Body Mass Index 16.11 08/19/2016 10:21 AM EST Body Mass Index Percentile 16.62% 08/19/2016 10: 21 AM EST Growth Chart: [facility] (Girls, 2- 20 Years) documented in this encounter Plan of Treatment Not on file documented as of this encounter Visit Diagnoses Not on filedocumented in this encounter
--- OUTSIDE RECORDS SUMMARY | 2024-05-28 09:29 | XMS_ITS | Encounter Summary ---
Author Organization Healthcare Address [address] [place] [address] Care Team Providers Care Digital Watch Assembler Name Role Phone Unavailable Primary Care Provider Unavailabl e Encounter Details Date Type Department Care Team (Late st Contact Info) Description 06/13/2015 Legacy AEHR Vitals Encounter [facility] OUTPATIENT CONVERSIONS [address] [place] [address] ProviderCarlota MD [address] [place], [place] [id number] 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 Tobacco Use Types Packs/Day Years [...] - Inhaled Oxygen Concentration - - Weight 28 kg (61 lb 11.7 oz) 06/13/2015 10:04 AM EST Height 134.3 cm (4' 4.87 ) 06/13/2015 10:[address] Body Mass Index 15.52 06/13/2015 10:04 AM EST Body Mass Index Percentile 16.75% 06/13/2015 10: 04 AM EST Growth Chart: [facility] (Girls, 2- 20 Years) documented in this encounter Plan of Treatment Not on file documented as of this encounter Visit Diagnoses Not on filedocumented in this encounter
--- OUTSIDE RECORDS SUMMARY | 2024-05-28 09:29 | XMS_ITS | Encounter Summary ---
Author Organization Healthcare Address [address] [place] [address] Care Team Providers Care Cash Register Repairer Name Role Phone Unavailable Primary Care Provider Unavailabl e Encounter Details Date Type Department Care Team (Late st Contact Info) Description 05/04/2017 Legacy AEHR Vitals Encounter [facility] OUTPATIENT CONVERSIONS [address] [place] [address] ProviderCarlota MD [address] [place] [address] 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 Tobacco Use Types Packs/Day Years [...] - Inhaled Oxygen Concentration - - Weight 35.9 kg (79 lb 2 oz) 05/04/2017 10:29 AM EDT Height 149.8 cm (4' 10.98 ) 05/04/2017 10:29 AM EDT Body Mass Index 15.99 05/04/2017 10:29 AM EDT Body Mass Index Percentile 10.80% 05/04/2017 10: 29 AM EDT Growth Chart: [facility] (Girls, 2- 20 Years) documented in this encounter Plan of Treatment Not on file documented as of this encounter Visit Diagnoses Not on filedocumented in this encounter
[2024-05-28 09:43] VITALS: BP 122/79; PULSE 87; RESP 18; TEMP 36.9; O2SAT 99; BMI 18.4
--- NOTE | 2024-05-28 10:04 | ED_ITS ---
Discharge Plan Prescriptions Prescriptions: No Action desvenlafaxine succinate 25 mg tablet extended release 24 hr 25 mg PO DAILY Qty: 90 1RF Referrals Follow up/Referrals: Hyacinth Tuttle PA [Primary Care Provider] - See instructions Activity Restrictions/Add. Instructions Additional Instructions/Restrictions: *Monitor Temp, Over the counter Motrin or Tylenol as directed/as needed Tylenol every 4 hours and Motrin every 6 hours (as long as your family doctor has told you that you can take it) for fever or pain. and straight to ER if unable to lower temp less than 101.0 after medication given *Warm salt water gargles may help to soothe the throat *Throat Lozenges? *Warm fluids like tea with honey may help to soothe the throat? *Sleep elevated *Humidifier/Vaporizer Follow up IMMEDIATELY for new or worsening symptoms or no Noticeable improvement over the next 48-72 hours. 911 for difficulty breathing or swallowing Your RSV test should be back later today or tomorrow, this is a virus May treat the symptoms with over the counter cough and cold medications and be careful being around young children and elderly adults Clinical Impressions Clinical Impression: Acute viral syndrome Instructions Patient Instructions: DI for Viral Syndrome Print Language Print Language: Salvadorean Discharge ED Provider: Leah Huerta [facility] General Stated complaint: exp to RSV, runny nose, headache, body ache Mode of Arrival: Ambulatory Source of Information: Patient Time Seen by Provider: 05/28/24 10:04 Description of Symptoms (Recalled from Triage Doc. 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 States she has been having a little cough, runny nose and body aches Related Data Previous Rx's ?Medication ?Instructions ?Recorded desvenlafaxine succinate 25 mg 25 mg PO DAILY #90 tabs 02/22/24 tablet,extended release 24 hr Allergies Allergy/AdvReac Type Severity Reaction Status Date / Time amoxicillin (From AUGMENTIN) Allergy Mild I-RASH Verified 03/08/24 09:16 clavulanic acid (From Allergy Mild I-RASH Verified 03/08/24 09:16 AUGMENTIN) azithromycin Allergy Verified 03/08/24 09:16 prednisone Allergy Verified 03/08/24 09:16 Worker's Comp Is this a Worker's Comp case?: No [facility] Disclaimer: The information contained in this section may have been updated after the patient was seen, as this information can be updated by other users. Medical History (Updated 05/28/24 @ 10:09 by Leah Huerta APRN) Sprain of foot, right Right ankle sprain Generalized anxiety disorder Major depressive disorder Depression Anxiety Urinary tract infection Migraine Asthma Surgical History History of tympanostomy tube placement History of wisdom tooth extraction 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 Smoking Status: Unknown if ever smoked second hand exposure: Yes alcohol intake: never counseling given: No substance use type: denies use counseling given: No current occupational status: student and other Travel in the last 8 weeks: None adopted: No caregiver/support person: No foster care: No household members: family housing: house lives independently: No marital status: single number of children: 0 number of grandchildren: 0 education level: other details: she will soon graduate in November 2022 Hx Recent Travel: No sexually active: Yes are you practicing safe sex: Yes caffeine: Yes physical activity: none montana/pentecostalism: None special montana needs: No working smoke detector in home: Yes fire extinguisher in home: Yes carbon monox detector in home: Yes firearms in home: Yes firearms unloaded and locked: Yes do you feel safe at home: Yes victim of physical abuse: No victim of emotional abuse: No victim of sexual abuse: No would you like helpful sources: No ROS Obtained: Yes All systems reviewed & no additional complaints except as documented and Yes Systems reviewed as appropriate & no additional complaints except as documented Constitutional Constitutional: Reports system reviewed and no additional complaints, except as documented, Reports as per HPI and Reports headache(s) ENT Ears, Nose, Mouth, and Throat: Reports system reviewed and no additional complaints, except as documented, Reports as per HPI, Reports headache(s), Reports nasal congestion and Reports nasal discharge Cardiovascular Cardiovascular: Reports system reviewed and no additional complaints, except as documented and Reports as per HPI Respiratory Respiratory: Reports system reviewed and no additional complaints, except as doc umented, Reports as per HPI and Reports cough Gastrointestinal Gastrointestingal: Reports system reviewed and no additional complaints, except as documented and as per HPI Neurologic Neurologic: Reports headache(s) Physical Exam General General appearance: alert and in no apparent distress ENT ENT exam: Present mucous membranes moist Expanded ENT Exam Nose exam: Absent sinus tenderness Throat exam: Present normal inspection Chest Chest inspection: Present normal inspection and symmetric chest wall rise Respiratory Respiratory exam: Present normal lung sounds bilaterally; Absent respiratory distress or wheezes Cardiovascular Cardiovascular exam: Present regular rate, normal rhythm and normal heart sounds Abdominal Exam Abdominal exam: Present soft and normal bowel sounds; Absent distention or tenderness Neurological Exam Neurological exam: Present alert, oriented X3 and normal gait Medical Decision Making Medical Records Screening: Per USPSTF and CDC recommendations, given the prevalence of disease in our region, it is our hospital?s policy to screen for HIV and viral Hepatitis for all patients aged 18 and over and those with ongoing risk factors. Dariel Inquiry Pt receiving controlled substance: No Dariel was queried for this patient: No Vital Signs: 05/28/24 09:43 Temperature 98.5 F Temperature Source Oral Pulse Rate [Left Radial] 87 Respiratory Rate 18 Blood Pressure [Left Arm] 122/79 Blood Pressure Mean [Left Arm] 93 02 Sat by Pulse Oximetry 99 Orders (Tests/Meds): ORDERS Category Date Time Status RSV Rapid Ab Screen Stat Lab 05/28/24 09:36 Received
[2024-05-28 10:11] VITALS: BP 122/89; PULSE 87; RESP 18; TEMP 36.9
[2024-05-28 10:18] LABS: RSV Rapid Ab Screen Negative (Negative)
== END 2024-05-28 10:18 | disposition home or self-care (01) ==
LOC: UTC 09:26
PROVIDERS: Emergency Provider Nurse Practitioner; PCP Physician Assistant
DX: B34.9 Viral infection, unspecified (principal)
CPT/HCPCS: 87807; 99213; G0381

== ENCOUNTER 2024-06-16 23:02 | Emergency (ER) | payer OTHER, SELFPAY ==
[2024-06-16 23:02] VITALS: BP 115/74; PULSE 70; RESP 20; TEMP 36.7; O2SAT 100; BMI 18.4
--- NOTE | 2024-06-16 23:06 | ECG_ITS ---
APPROVED REPORT Exam: Resting ECG HR:63 bpm ECG Measurements Heart Rate 63 AXES NC 156 P -51 QRSd 84 QRS 82 QT 405 T 74 QTc 412 Conclusion ECTOPIC ATRIAL RHYTHM POSSIBLE RIGHT VENTRICULAR CONDUCTION DELAY [RSR (QR) IN V1/V2] ABNORMAL RHYTHM ECG UNCONFIRMED REPORT Electronically signed by : LILIA GALLO, 06/17/2024 04:28:11
--- NOTE | 2024-06-16 23:20 | ED_ITS ---
Discharge Plan Disposition Patient Disposition: Home, Self-Care Prescriptions Prescriptions: New methocarbamol 500 mg tablet 500 mg PO Q6H PRN (Reason: pain) Qty: 30 0RF No Action desvenlafaxine succinate 25 mg tablet extended release 24 hr 25 mg PO DAILY Qty: 90 1RF Activity Restrictions/Add. Instructions Additional Instructions/Restrictions: Please take Tylenol ibuprofen and use Robaxin as needed for pain. Please follow-up with your primary care provider. Please return to the emergency department if you develop any new or worsening symptoms or become concerned for your health. Clinical Impressions Clinical Impression: Chest pain Print Language Print Language: Bengali Discharge ED Provider: Howie Grayson General Adult HPI General Chief complaint: Chest Pain Stated complaint: cp Time Seen by Provider: 06/16/24 23:13 History of Present Illness HPI narrative: 19-year-old female without significant history presents for chest pain. She reports it started when she was in the [facility] earlier today. Left-sided in nature. She denies any significant shortness of breath. Denies a recent fever or illness. She is not on contraceptives, has never had a blood clot, no recent surgery or immobilization. Denies palpitations or central chest pain. Related Data Previous Rx's ?Medication ?Instructions ?Recorded desvenlafaxine succinate 25 mg 25 mg PO DAILY #90 tabs 02/22/24 tablet,extended release 24 hr methocarbamol 500 mg tablet 500 mg PO Q6H PRN pain #30 tabs 06/16/24 Allergies Allergy/AdvReac Type Severity Reaction Status Date / Time amoxicillin (From AUGMENTIN) Allergy Mild I-RASH Verified 03/08/24 09:16 clavulanic acid (From Allergy Mild I-RASH Verified 03/08/24 09:16 AUGMENTIN) azithromycin Allergy Verified 03/08/24 09:16 prednisone Allergy Verified 03/08/24 09:16 [facility] Disclaimer: The information contained in this section may have been updated after the patient was seen, as this information can be updated by other users. Medical History (Updated 06/16/24 @ 23:40 by Howie Grayson MD) Sprain of foot, right Right ankle sprain Generalized anxiety disorder Major depressive disorder Depression Anxiety Urinary tract infection Migraine Asthma Surgical History History of tympanostomy tube placement History of wisdom tooth extraction 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 Smoking Status: Never smoker second hand exposure: Yes alcohol intake: never counseling given: No substance use type: denies use counseling given: No current occupational status: student and other Travel in the last 8 weeks: None adopted: No caregiver/support person: No foster care: No household members: family housing: house lives independently: No marital status: single number of children: 0 number of grandchildren: 0 education level: other details: she will soon graduate in November 2022 Hx Recent Travel: No sexually active: Yes are you practicing safe sex: Yes caffeine: Yes physical activity: none montana/catholic: None special montana needs: No working smoke detector in home: Yes fire extinguisher in home: Yes carbon monox detector in home: Yes firearms in home: Yes firearms unloaded and locked: Yes do you feel safe at home: Yes victim of physical abuse: No victim of emotional abuse: No victim of sexual abuse: No would you like helpful sources: No Other Medical History Have you received the Flu Vaccine for this season: No Have you received the Pneumonia Vaccine: No ROS Obtained: Yes All systems reviewed & no additional complaints except as documented Physical Exam General General appearance: alert and in no apparent distress Head Head exam: atraumatic and normocephalic Eye Eye exam: Present normal appearance, PERRL and EOMI ENT ENT exam: Present normal oropharynx and normal external ear exam Neck Neck exam: Present normal inspection, full ROM and tenderness (Left supraspinatus/paraspinal cervical tenderness) Chest Chest inspection: Present normal inspection, symmetric chest wall rise and tenderness (Left lateral chest wall) Respiratory Respiratory exam: Present normal lung sounds bilaterally; Absent respiratory distress Cardiovascular Cardiovascular exam: Present regular rate and normal rhythm Abdominal Exam Abdominal exam: Present soft; Absent distention, tenderness or guarding Extremities Exam Extremities exam: Present normal inspection; Absent edema or joint swelling Back Exam Back exam: Present normal inspection; Absent tenderness Neurological Exam Neurological exam: Present alert and oriented X3; Absent motor sensory deficit Psychiatric Psychiatric exam: Present normal affect and normal mood Skin Skin exam: Present warm, dry and normal color Lymphatic Lymphatic Findings: no adenopathy Medical Decision Making Medical Records Medical records reviewed: Yes I reviewed the patient's medical records. Screening: Per USPSTF and CDC recommendations, given the prevalence of disease in our region, it is our hospital?s policy to screen for HIV and viral Hepatitis for all patients aged 18 and over and those with ongoing risk factors. Dariel Inquiry Pt receiving controlled substance: No Dariel was queried for this patient: No Vital Signs: 06/16/24 23:02 06/16/24 23:30 06/16/24 23:53 Temperature 98.1 F 98.1 F Temperature Source Oral Oral Pulse Rate 66 64 Pulse Rate [Apical] 70 Respiratory Rate 20 22 20 Blood Pressure 111/70 111/70 Blood Pressure [Right Arm] 115/74 Blood Pressure Mean [Right Arm] 87 02 Sat by Pulse Oximetry 100 99 Oxygen Delivery Method Room Air Room Air 06/16/24 23:53 Temperature Temperature Source Pulse Rate 64 Pulse Rate [Apical] Respiratory Rate Blood Pressure Blood Pressure [Right Arm] Blood Pressure Mean [Right Arm] 02 Sat by Pulse Oximetry Oxygen Delivery Method Lab Data Lab results reviewed: Yes I reviewed the patient's lab results. Orders (Tests/Meds): ED MEDICATIONS Discontinued Medications Generic Name Dose Route Start Last Admin Trade Name Freq PRN Reason Stop Dose Admin Acetaminophen 1,000 mg 06/16/24 23:39 06/16/24 23:50 Acetaminophen 500mg Tab PO 06/16/24 23:40 1,000 mg ONCE ONE Administration Ibuprofen 600 mg 06/16/24 23:39 06/16/24 23:51 Ibuprofen 600 Mg Tablet PO 06/16/24 23:40 600 mg ONCE ONE Administration Methocarbamol 500 mg 06/16/24 23:39 06/16/24 23:51 Methocarbamol 500mg Tablet PO 06/16/24 23:40 500 mg ONCE ONE Administration ORDERS Category Date Time Status HIV (1&2) Antibody Rapid Stat Lab 06/16/24 23:46 Ordered Hep C Ab with Reflex to RNA Stat Lab 06/16/24 23:46 Ordered Medical Decision Narrative: 19-year-old female without significant past medical history presents with left- sided chest pain and tenderness that started while she was in a parade earlier today.. History was obtained via interactive discussion with patient. On arrival, patient is [afebrile, hemodynamically stable, satting appropriately, alert, oriented x4, GCS 15], moving all extremities spontaneously. Full physical exam performed and significant for musculoskeletal tenderness. She reports that there is no way she is . Differential includes but is not limited to musculoskeletal pain, PE, pneumonia, pleurisy. Patient was given Tylenol, ibuprofen, Robaxin for symptomatic management and correction of underlying abnormalities. Workup initiated including EKG. Blood work and chest x-ray were considered but demonstrate given history and exam. EKG interpreted by me, shows normal sinus rhythm without ischemic changes, signs of pericarditis or arrhythmia.. Given patient history, exam and workup, patient's presentation most likely represents musculoskeletal chest pain. These findings were communicated with the patient and family and she was discharged in stable condition with return precautions. Procedures Risk/Benefits of Procedure(s) Were Explained: Yes Critical Care Critical Care Time Critical Care Time: No
[2024-06-16 23:30] VITALS: BP 111/70; PULSE 66; RESP 22; O2SAT 99
[2024-06-16] MEDS: ACETAMINOPHEN 500MG TAB 1000 MG PO (23:50)
[2024-06-16] MEDS: IBUPROFEN 600 MG TABLET PO (23:51)
[2024-06-16] MEDS: METHOCARBAMOL 500MG TABLET 500 MG PO (23:51)
--- OUTSIDE RECORDS SUMMARY | 2024-06-16 23:52 | XMS_ITS | Encounter Summary ---
Author Organization Healthcare Address [address] [id number] Care Team Providers Care Vocational Rehabilitation Administrator Name Role Phone Domenico Jameson MD Primary Care Provider [phone] Reason for Visit * Reason Onset Date Comments Results 05/08/2021 Encounter Details Date Type Department Care Team (Late st Contact Info) Description 05/08/2021 Telephone [facility] [address], [address] [place] [address] Mj Reynolds MD [address] [facility] [address] [place] [address] Results 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 Tobacco Use [...] documented as of this encounter Care Teams Vocational Rehabilitation Administrator Relationship Specialty Start Date End Date Domenico Jameson MD [address] [place] [address] PCP - General 11/21/20 documented as of this encounter
--- OUTSIDE RECORDS SUMMARY | 2024-06-16 23:52 | XMS_ITS | Encounter Summary ---
Author Organization Healthcare Address [address] [id number] Care Team Providers Care Rig Welder Name Role Phone Domenico Jameson MD Primary Care Provider [phone] Reason for Visit * Reason Onset Date Comments [facility] Same Day Appt/Overbook Request 10/06/2022 Encounter Details Date Type Department Care Team (Late st Contact Info) Description 10/06/2022 Telephone [facility] [address] [place] [address] Joe Marc MD [address] [facility] [address] [place] [address] [facility] Same Day Appt/Overbook Request [...] first available of 01/12/23 Best contact number: [phone] (home) Optimal time of day to reach caller: ANYTIME Additional comments/information from caller: None Note: Please do not reply to this message. Follow-up communication and further actions as a result of this message need to be communicated with the patient directly, if the patient is not active onMyChart. If the patient is active on MyChart, they will receive notification of the communication/outcome via [employer]. documented in this encounter Plan of Treatment Not on file documented as of this encounter Visit Diagnoses Not on filedocumented in this encounter Additional Health Concerns Assessment Noted Time A fall risk assessment has been complete d for the patient 09/13/2022 9:49 AM EST documented as of this encounter Care Teams Rig Welder Relationship Specialty Start Date End Date Domenico Jameson MD [address] [place] [address] PCP - General 11/21/20 documented as of this encounter
--- OUTSIDE RECORDS SUMMARY | 2024-06-16 23:52 | XMS_ITS | Encounter Summary ---
Author Organization [facility] Address [address] [place] [address] Care Team Providers Care Precision Filer Hand Name Role Phone Domenico Jameson MD Primary Care Provider [phone] Encounter Details Date Type Department Care Team [...] documented as of this encounter Care Teams Precision Filer Hand Relationship Specialty Start Date End Date Domenico Jameson MD [address] [place] [address] PCP - General 11/21/20 documented as of this encounter
--- OUTSIDE RECORDS SUMMARY | 2024-06-16 23:52 | XMS_ITS | Encounter Summary ---
Author Organization [facility] Address [address] [place] [address] Care Team Providers Care Airplane Electrician Name Role Phone Domenico Jameson MD Primary Care Provider [phone] Reason for Referral * Cardiac Stress Testing (Routine) - Closed Specialty Diagnoses / Procedures Referred By Yony yung Referred To Contact Cardiology Diagnoses Palpitations Procedures Pediatric Holter Monitor Mj Reynolds MD [address] [address] Phone: tel: fax: Referral ID Status Reason Start Date Expiration Date Visits Re quested Visits Authorized [id number] Closed 04/30/2021 10/30/2022 1 1 Reason for Visit * Cardiac Stress Testing (Routine) - Closed Specialty Diagnoses / Procedures Referred By Yony yung Referred To Contact Cardiology Diagnoses Palpitations Procedures Pediatric Holter Monitor Mj Reynolds MD [address] [address] Phone: tel: fax: Referral ID Status Reason Start Date Expiration Date Visits Re quested Visits Authorized [id number] Closed 04/30/2021 10/30/2022 1 1 Encounter Details Date Type Department Care Team (Latest Contact Info) Description 04/30/2021 12:45 PM EDT - 04/30/2021 11:59 PM EDT Hospital Encounter [facility] Pediatric Cardiac Diagnostic Testing [address] Floor, [place] [address] Palpitations Discharge Disposition: Home or Self Care [...] documented as of this encounter Care Teams Airplane Electrician Relationship Specialty Start Date End Date Domenico Jameson MD [address] [place] [address] PCP - General 11/21/20 documented as of this encounter
--- OUTSIDE RECORDS SUMMARY | 2024-06-16 23:52 | XMS_ITS | Encounter Summary ---
Author Organization Healthcare Address [address] [place] [address] Care Team Providers Care Asset Protection Agent Name Role Phone Domenico Jameson MD Primary Care Provider [phone] Encounter Details Date Type Department Care Team (Late st Contact Info) Description 09/28/2022 Telephone [facility] [address], [address] [place] [id number] Lorelei Funk RN [facility] Social [...] yet. Mom says they will drop at [facility]. RN advised to call when dropped off so we can follow results. * Telephone Encounter - Lorelei Funk RN - 09/28/2022 9:11 AM EDT Spoke with mother, asking if stool order is still good, planning to collect now and has follow up with [facility] documented in this encounter Plan of Treatment Not on file documented as of this encounter Visit Diagnoses Not on filedocumented in this encounter Additional Health Concerns Assessment Noted Time A fall risk assessment has been complete d for the patient 09/13/2022 9:49 AM EST documented as of this encounter Care Teams Asset Protection Agent Relationship Specialty Start Date End Date Domenico Jameson MD [address] [place] [address] PCP - General 11/21/20 documented as of this encounter
--- OUTSIDE RECORDS SUMMARY | 2024-06-16 23:52 | XMS_ITS | Encounter Summary ---
Author Organization [facility] Address [address] [place] [address] Care Team Providers Care Emergency Medicine Physician Assistant Name Role Phone Domenico Jameson MD Primary Care Provider [phone] Reason for Visit * Reason Comments New Patient New patient. Would l kaiser to discuss birthcontrol. Has been on pill in the past. Low sex drive. Wants to discuss anxiety medication. Encounter Details Date Type Department Care Team (Late st Contact Info) Description 09/13/2022 9:30 AM EST Office Visit Obstetrics & Gynecology [address] [place] [address] Radha Naidu MD [address] [place] [address] Encounter for initial prescription of [...] 09/13/2022 9:4 6 AM EST Growth Chart: [facility] (Girls, 2- 20 Years) documented in this [...] documented as of this encounter Care Teams Emergency Medicine Physician Assistant Relationship Specialty Start Date End Date Domenico Jameson MD [address] [place] [address] PCP - General 11/21/20 documented as of this encounter
--- OUTSIDE RECORDS SUMMARY | 2024-06-16 23:52 | XMS_ITS | Encounter Summary ---
Author Organization Healthcare Address [address] [id number] Care Team Providers Care Information Officer Name Role Phone Domenico Jameson MD Primary Care Provider [phone] Reason for Visit * Reason Comments Diarrhea frequent stooling Encounter Details Date Type Department Care Team (Late st Contact Info) Description 03/30/2022 10:30 AM EDT Office Visit [facility] [address] [place] [address] Joe Marc MD [address] [facility] [address] [place] [address] Abdominal pain, recurrent (Primary Dx); [...] 6.59% 03/30 11:10 AM EDT Growth Chart: [facility] (Girls, 2- 20 Years) documented in this encounter Miscellaneous Notes * Progress Notes - Joe Marc MD - 03/30/2022 10:30 AM EDT Images from the original note were not included. Subjective Dear Domenico Jameson MD, I had the pleasure of seeing Roxi Wilkinson who is a 16 y.o. female being seen as a established patient at the [facility] today with/for Diarrhea [...] teeth MYRINGOTOMY WTHOUT TUBES N/A Myringotomy from [facility] 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 Tobacco Use Smoking status: Never [...] lymph nodes in neck: No lymphadenopathy Musculoskeletal Seeley and station: Normal Digits and nails: Normal [...] bowel movements daily. We have used the [place] stool scale to explain a good bowel [...] patient reviewing previous testing and documentation, providing [id number] interview/exam/diagnosis, documenting in the EMR, and/or communicating with other care team members. documented in this encounter Plan of Treatment Not on file documented as of this encounter Results * C-reactive protein (03/30/2022 2:58 PM EDT) CRP, Plasma <3.0 <=8.0 mg/L 03/30/2022 6:05 PM EDT [facility] Blood Venous blood specimen / Unknown [...] ORDERABLES Final Res ult [facility] [address] [place] [address] * (ABNORMAL) Comprehensive metabolic panel (03/30/2022 2:58 PM EDT) Glucose, Plasma 108(H) 60 - 99 mg/dL 03/30/2022 6:[address] [facility] BUN, Plasma 8 7 - 21 mg/dL 03/30/2022 6:[address] [facility] Creatinine, Plasma 0.79 0.50 - 0.90 mg/dL 03/30/2022 6:[address] [facility] BUN/Creatinine Ratio 10 03/30/2022 6:[address] [facility] Sodium, Plasma 141 133 - 144 mmol/L 03/30/2022 6:[address] [facility] Potassium, Plasma 3.7 3.6 - 4.9 mmol/L 03/30/2022 6:[address] [facility] Comment:Reference range for Serum potassium is 0.2 to 0.5 mmol/L higher than Plasma range. Chloride, Plasma 107 97 - 107 mmol/L 03/30/2022 6:[address] [facility] CO2, Plasma 25 21 - 29 mmol/L 03/30/2022 6:[address] [facility] Anion Gap 9 6 - 16 mmol/L 03/30/2022 6:[address] [facility] Comment:Unable to calculate, at least one value is above or below the detection limit. Total Calcium, Plasma 8.8 8.4 - 10.3 mg/dL 03/30/2022 6:[address] [facility] Total Protein 6.8 5.7 - 8.0 g/dL 03/30/2022 6:[address] [facility] Albumin, Plasma 4.2 4.0 - 5.3 g/dL 03/30/2022 6:[address] [facility] AST, Plasma 13 11 - 32 U/L 03/30/2022 6:[address] [facility] ALT, Plasma 9 5 - 35 U/L 03/30/2022 6:[address] [facility] Alkaline Phosphatase, Plasma 72 52 - 144 U/L 03/30/2022 6:[address] [facility] Total Bilirubin, Plasma 0.6 0.1 - 1.0 mg/dL 03/30/2022 6:[address] [facility] eGFRcr 03/30/2022 6:[address] [facility] Comment:Unable to calculate, at least one value is above or below the detection limit. Blood Venous blood specimen / Unknown Venipuncture / Unknown 03/30/2022 2:58 PM EDT 03/30/2022 2:58 PM EDT Joe Marc MD LAB BLOOD ORDERABLES Final Res ult [facility] [address] [place] [address] * (ABNORMAL) CBC and differential (03/30/2022 2:58 PM EDT) WBC Count 4.31 4.19 - 9.43 10*3/uL LAB HEMATOLOGY METHOD 03/30/2022 5:[address] [facility] RBC Count 4.14 3.93 - 4.90 10*6/uL LAB HEMATOLOGY METHOD 03/30/2022 5:[address] [facility] HGB 12.1 10.8 - 13.3 g/dL LAB HEMATOLOGY METHOD 03/30/2022 5:[address] [facility] HCT 36.3 33.4 - 40.4 % LAB HEMATOLOGY METHOD 03/30/2022 5:[address] [facility] Platelet Count 245 194 - 345 10*3/uL LAB HEMATOLOGY METHOD 03/30/2022 5:[address] [facility] MCV 88 77 - 91 fL LAB HEMATOLOGY METHOD 03/30/2022 5:[address] [facility] MCH 29.2 24.8 - 30.2 pg LAB HEMATOLOGY METHOD 03/30/2022 5:[address] [facility] MCHC 33.3 31.5 - 34.2 g/dL LAB HEMATOLOGY METHOD 03/30/2022 5:[address] [facility] RDW 12.0(L) 12.3 - 14.6 % LAB HEMATOLOGY METHOD 03/30/2022 5:[address] [facility] MPV 10.7 9.6 - 11.7 fL LAB HEMATOLOGY METHOD 03/30/2022 5:[address] [facility] nRBC 0.0 <=0.0 per 100 WBCs LAB HEMATOLOGY METHOD 03/30/2022 5:[address] [facility] Differential Type Automated LAB HEMATOLOGY METHOD 03/30/2022 5:[address] [facility] Neutrophils % 48.0 % LAB HEMATOLOGY METHOD 03/30/2022 5:[address] [facility] Lymphocytes % 43.0 % LAB HEMATOLOGY METHOD 03/30/2022 5:[address] [facility] Monocytes % 4.0 % LAB HEMATOLOGY METHOD 03/30/2022 5:[address] [facility] Eosinophils % 4.0 % LAB HEMATOLOGY METHOD 03/30/2022 5:[address] [facility] Basophils % 1.0 % LAB HEMATOLOGY METHOD 03/30/2022 5:[address] [facility] Immature Granulocytes % 0.0 % LAB HEMATOLOGY METHOD 03/30/2022 5:[address] [facility] Neutrophils Absolute 2.08 1.82 - 7.47 10*3/uL LAB HEMATOLOGY METHOD 03/30/2022 5:[address] [facility] Lymphocytes Absolute 1.84 1.16 - 3.33 10*3/uL LAB HEMATOLOGY METHOD 03/30/2022 5:[address] [facility] Monocytes Absolute 0.18(L) 0.19 - 0.72 10*3/uL LAB HEMATOLOGY METHOD 03/30/2022 5:[address] [facility] Eosinophils Absolute 0.17 0.02 - 0.32 10*3/uL LAB HEMATOLOGY METHOD 03/30/2022 5:[address] [facility] Basophils Absolute 0.04 0.01 - 0.05 10*3/uL LAB HEMATOLOGY METHOD 03/30/2022 5:[address] [facility] Immature Granulocytes Absolute 0.00 0.00 - 0.03 10*3/uL LAB HEMATOLOGY METHOD 03/30/2022 5:[address] [facility] Blood Venous blood specimen / Unknown Venipuncture / Unknown 03/30/2022 2:58 PM EDT 03/30/2022 2:58 PM EDT Narrative [facility] - 03/30/2022 5:53 PM EDT Therapeutic decision making should be based on absolute values, rather than percentages. Joe Marc MD LAB BLOOD ORDERABLES Final Res ult Performing Organization Address City/State/[facility] Co de Phone Number [facility] [address] [place] [address] documented in this encounter Visit Diagnoses Diagnosis Abdominal pain, recurrent- Primary Abdominal pain, unspecified site Chronic idiopathic constipation Unspecified constipation Weight loss Loss of weight documented in this encounter Additional Health Concerns Assessment Noted Time A fall risk assessment has been complete d for the patient 03/30/2022 11:11 AM EDT documented as of this encounter Care Teams Information Officer Relationship Specialty Start Date End Date Domenico Jameson MD [address] [place] [address] PCP - General 11/21/20 documented as of this encounter
--- OUTSIDE RECORDS SUMMARY | 2024-06-16 23:52 | XMS_ITS | Encounter Summary ---
Author Organization Healthcare Address [address] [place] [address] Care Team Providers Care Electrician Constructor Supervisor Name Role Phone Domenico Jameson MD Primary Care Provider [phone] Encounter Details Date Type Department Care Team [...] documented as of this encounter Care Teams Electrician Constructor Supervisor Relationship Specialty Start Date End Date Domenico Jameson MD [address] [place] [address] PCP - General 11/21/20 documented as of this encounter
--- OUTSIDE RECORDS SUMMARY | 2024-06-16 23:52 | XMS_ITS | Encounter Summary ---
Author Organization [facility] Address [address] [place] [address] Care Team Providers Care Duplicating Machine Operator Name Role Phone Domenico Jameson MD Primary Care Provider [phone] Encounter Details Date Type Department Care Team [...] documented as of this encounter Care Teams Duplicating Machine Operator Relationship Specialty Start Date End Date Domenico Jameson MD [address] [place] [address] PCP - General 11/21/20 documented as of this encounter
--- OUTSIDE RECORDS SUMMARY | 2024-06-16 23:52 | XMS_ITS | Encounter Summary ---
Author Organization [facility] Address [address] [place] [address] Care Team Providers Care Program Proposals Coordinator Name Role Phone Domenico Jameson MD Primary Care Provider [phone] Encounter Details Date Type Department Care Team [...] documented as of this encounter Care Teams Program Proposals Coordinator Relationship Specialty Start Date End Date Domenico Jameson MD [address] [place] [address] PCP - General 11/21/20 documented as of this encounter
--- OUTSIDE RECORDS SUMMARY | 2024-06-16 23:52 | XMS_ITS | Encounter Summary ---
Author Organization Healthcare Address [address] [id number] Care Team Providers Care Forensic Chemist Name Role Phone Domenico Jameson MD Primary Care Provider [phone] Reason for Visit * Reason Comments Abdominal Pain Nausea Encounter Details Date Type Department Care Team (Late st Contact Info) Description 11/24/2022 10:30 AM EDT [facility] Visit [facility] [address] [place] [address] Joe Marc MD [address] [facility] [address] [place] [address] Chronic abdominal pain (Primary Dx) [...] 3.70% 11/24 10:50 AM EDT Growth Chart: [facility] (Girls, 2- 20 Years) documented in this encounter Miscellaneous Notes * Progress Notes - Joe Marc MD - 11/24/2022 10:30 AM EDT Images from the original note were not included. Subjective Dear Domenico Jameson MD, I had the pleasure of seeing Roxi Wilkinson who is a 17 y.o. female being seen as a established patient at the [facility] today with/for Abdominal [...] bowel movements daily. We have used the Chaffee stool scale to explain a good bowel [...] -0.50)* * Growth percentiles are based on [facility] (Girls, 2-20 Years) data. Past [...] teeth MYRINGOTOMY WTHOUT TUBES N/A Myringotomy from [employer] 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 Tobacco Use Smoking status: Never [...] lymph nodes in neck: No lymphadenopathy Musculoskeletal [place] and station: Normal Digits and nails: Normal [...] Good no further work up Discussed adult GI/vocational adviser if there are not features to suggest chronic inflammation. The parent was counseled regarding impressions and instructions for management. Education provided was by verbal counseling. I have personally spent 30 minutes today, providing clinical care to this patient reviewing previous testing and documentation, providing [id number] interview/exam/diagnosis, documenting in the EMR, and/or communicating with other care team members. documented in this encounter Plan of Treatment Not on file documented as of this encounter Results * C-reactive protein (11/24/2022 11:49 AM EDT) CRP, Plasma <3.0 <=8.0 mg/L 11/24/2022 1:56 PM EDT [facility] Blood Venous blood specimen / Unknown Venipuncture / Unknown 11/24/2022 11:49 AM EDT 11/24/2022 11:49 AM EDT Narrative [facility] - 11/24/2022 1:56 PM EDT This CRP test is appropriate for assessment of infection, systemic inflammation and/or tissue injury. To assess cardiovascular disease risk order high sensitivity CRP (CRPH). us Joe Marc MD LAB BLOOD ORDERABLES Final Res ult [facility] [address] [place] [address] * Comprehensive metabolic panel (11/24/2022 11:49 AM EDT) Glucose, Plasma 90 74 - 99 mg/dL 11/24/2022 1:56 PM EDT [facility] BUN, Plasma 10 7 - 21 mg/dL 11/24/2022 1:56 PM EDT [facility] Creatinine, Plasma 0.67 0.50 - 0.90 mg/dL 11/24/2022 1:56 PM EDT [facility] BUN/Creatinine Ratio 15 11/24/2022 1:56 PM EDT [facility] Sodium, Plasma 139 136 - 145 mmol/L 11/24/2022 1:56 PM EDT [facility] Potassium, Plasma 3.9 3.7 - 4.8 mmol/L 11/24/2022 1:56 PM EDT [facility] Chloride, Plasma 104 97 - 107 mmol/L 11/24/2022 1:56 PM EDT [facility] CO2, Plasma 25 22 - 29 mmol/L 11/24/2022 1:56 PM EDT [facility] Anion Gap 10 6 - 16 mmol/L 11/24/2022 1:56 PM EDT [facility] Total Calcium, Plasma 9.2 8.9 - 10.2 mg/dL 11/24/2022 1:56 PM EDT [facility] Total Protein 7.3 5.7 - 8.0 g/dL 11/24/2022 1:56 PM EDT [facility] Albumin, Plasma 4.5 3.5 - 5.2 g/dL 11/24/2022 1:56 PM EDT [facility] AST, Plasma 16 11 - 32 U/L 11/24/2022 1:56 PM EDT [facility] ALT, Plasma 10 8 - 33 U/L 11/24/2022 1:56 PM EDT [facility] Alkaline Phosphatase, Plasma 78 52 - [...] the two equations, please see laboratory website: ??[email or web address] Blood Venous blood specimen / Unknown Venipuncture / Unknown 11/24/2022 11:49 AM EDT 11/24/2022 11:49 AM EDT Joe Marc MD LAB BLOOD ORDERABLES Final Res ult [facility] [address] [place] [address] * (ABNORMAL) CBC and differential (11/24/2022 11:49 AM EDT) WBC Count 6.31 3.70 - 10.30 10*3/uL LAB HEMATOLOGY METHOD 11/24/2022 12:55 PM EDT [facility] RBC Count 4.43 3.90 - 5.20 10*6/uL LAB HEMATOLOGY METHOD 11/24/2022 12:55 PM EDT [facility] HGB 12.7 11.2 - 15.7 g/dL LAB HEMATOLOGY METHOD 11/24/2022 12:55 PM EDT [facility] HCT 38.2 34.0 - 45.0 % LAB HEMATOLOGY METHOD 11/24/2022 12:55 PM EDT [facility] Platelet Count 294 155 - 369 10*3/uL LAB HEMATOLOGY METHOD 11/24/2022 12:55 PM EDT [facility] MCV 86 79 - 98 fL LAB HEMATOLOGY METHOD 11/24/2022 12:55 PM EDT [facility] MCH 28.7 26.0 - 32.0 pg LAB HEMATOLOGY METHOD 11/24/2022 12:55 PM EDT [facility] MCHC 33.2 30.7 - 35.5 g/dL LAB HEMATOLOGY METHOD 11/24/2022 12:55 PM EDT [facility] RDW 12.0 11.5 - 14.5 % LAB HEMATOLOGY METHOD 11/24/2022 12:55 PM EDT [facility] MPV 10.5 8.8 - 12.5 fL LAB HEMATOLOGY METHOD 11/24/2022 12:55 PM EDT [facility] nRBC 0.0 <=0.0 per 100 WBCs LAB HEMATOLOGY METHOD 11/24/2022 12:55 PM EDT [facility] Differential Type Automated LAB HEMATOLOGY METHOD 11/24/2022 12:55 PM EDT [facility] Neutrophils % 61.0 % LAB HEMATOLOGY METHOD 11/24/2022 12:55 PM EDT [facility] Lymphocytes % 30.0 % LAB HEMATOLOGY METHOD 11/24/2022 12:55 PM EDT [facility] Monocytes % 4.0 % LAB HEMATOLOGY METHOD 11/24/2022 12:55 PM EDT [facility] Eosinophils % 4.0 % LAB HEMATOLOGY METHOD 11/24/2022 12:55 PM EDT [facility] Basophils % 1.0 % LAB HEMATOLOGY METHOD 11/24/2022 12:55 PM EDT [facility] Immature Granulocytes % 0.0 % LAB HEMATOLOGY METHOD 11/24/2022 12:55 PM EDT [facility] Neutrophils Absolute 3.84 1.60 - 6.10 10*3/uL LAB HEMATOLOGY METHOD 11/24/2022 12:55 PM EDT [facility] Lymphocytes Absolute 1.87 1.20 - 3.90 10*3/uL LAB HEMATOLOGY METHOD 11/24/2022 12:55 PM EDT [facility] Monocytes Absolute 0.25(L) 0.30 - 0.90 10*3/uL LAB HEMATOLOGY METHOD 11/24/2022 12:55 PM EDT [facility] Eosinophils Absolute 0.27 0.00 - 0.50 10*3/uL LAB HEMATOLOGY METHOD 11/24/2022 12:55 PM EDT [facility] Basophils Absolute 0.06 0.00 - 0.10 10*3/uL LAB HEMATOLOGY METHOD 11/24/2022 12:55 PM EDT [facility] Immature Granulocytes Absolute 0.02 0.00 - [...] ORDERABLES Final Res ult [facility] [address] [place] [address] documented in this encounter Visit Diagnoses Diagnosis Chronic abdominal pain- Primary Abdominal pain, unspecified site documented in this encounter Additional Health Concerns Assessment Noted Time A fall risk assessment has been complete d for the patient 11/24/2022 10:50 AM EDT documented as of this encounter Care Teams Forensic Chemist Relationship Specialty Start Date End Date Domenico Jameson MD [address] [place] [address] PCP - General 11/21/20 documented as of this encounter
--- OUTSIDE RECORDS SUMMARY | 2024-06-16 23:52 | XMS_ITS | Encounter Summary ---
Author Organization [facility] Address [address] [place] [address] Care Team Providers Care Box Storage Worker Name Role Phone Domenico Jameson MD Primary Care Provider [phone] Encounter Details Date Type Department Care Team [...] documented as of this encounter Care Teams Box Storage Worker Relationship Specialty Start Date End Date Domenico Jameson MD [address] [place] [address] PCP - General 11/21/20 documented as of this encounter
--- OUTSIDE RECORDS SUMMARY | 2024-06-16 23:52 | XMS_ITS | Encounter Summary ---
Author Organization Healthcare Address [address] [place] [address] Care Team Providers Care Warp Dyeing Tender Name Role Phone Domenico Jameson MD Primary Care Provider [phone] Encounter Details Date Type Department Care Team (Late st Contact Info) Description 12/01/2022 Telephone [facility] [address], [address] [place] [id number] Keyana Raymond RN [facility] 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 Tobacco Use Types [...] documented as of this encounter Care Teams Warp Dyeing Tender Relationship Specialty Start Date End Date Domenico Jameson MD [address] [place] [address] PCP - General 11/21/20 documented as of this encounter
--- OUTSIDE RECORDS SUMMARY | 2024-06-16 23:52 | XMS_ITS | Encounter Summary ---
Author Organization [facility] Address [address] [place] [address] Care Team Providers Care Budget Controller Name Role Phone Domenico Jameson MD Primary Care Provider [phone] Encounter Details Date Type Department Care Team [...] documented as of this encounter Care Teams Budget Controller Relationship Specialty Start Date End Date Domenico Jameson MD [address] [place] [address] PCP - General 11/21/20 documented as of this encounter
--- OUTSIDE RECORDS SUMMARY | 2024-06-16 23:52 | XMS_ITS | Encounter Summary ---
Author Organization Healthcare Address [address] [id number] Care Team Providers Care Airconditioning Drafting Officer Name Role Phone Domenico Jameson MD Primary Care Provider [phone] Reason for Visit * Reason Onset Date Comments HCN Clinical Concern/Question 11/10/2022 Encounter Details Date Type Department Care Team (Late st Contact Info) Description 11/10/2022 Telephone [facility] [address], [address] [place] [address] Joe Marc MD [address] [facility] [address] [place] [address] HCN Clinical Concern/Question 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 [...] flare ups. Thank you. Best contact number: [phone] (home) Optimal time of day to reach caller: ANYTIME Additional comments/information from caller: None Note: Please do not reply to this message. Follow-up communication and further actions as a result of this message need to be communicated with the patient directly, if the patient is not active onMyChart. If the patient is active on MyChart, they will receive notification of the communication/outcome via [employer]. documented in this encounter Plan of Treatment Not on file documented as of this encounter Visit Diagnoses Not on filedocumented in this encounter Additional Health Concerns Assessment Noted Time A fall risk assessment has been complete d for the patient 09/13/2022 9:49 AM EST documented as of this encounter Care Teams Airconditioning Drafting Officer Relationship Specialty Start Date End Date Domenico Jameson MD [address] [place] [address] PCP - General 11/21/20 documented as of this encounter
--- OUTSIDE RECORDS SUMMARY | 2024-06-16 23:52 | XMS_ITS | Clinical Summary ---
Author Organization [facility] Address [address] [place] [address] Care Team Providers Care Cell Technician Name Role Phone Domenico Jameson MD Primary Care Provider [phone] Allergies Active Allergy Reactions Criticality Noted [...] SDOH Screenings 2022 [facility]-Adult SDOH Screenings 2022 [id number] Vaccine ( season) 2024 04/23/2022, 06/01/2021, 03/07/2021 [...] Insurance [employer] Care Teams Cell Technician Relationship Specialty Start Date End Date Domenico Jameson MD [address] [place] [address] PCP - General 11/21/20
--- OUTSIDE RECORDS SUMMARY | 2024-06-16 23:52 | XMS_ITS | Encounter Summary ---
Author Organization Healthcare Address [address] [place] [address] Care Team Providers Care Welding Rod Coater Name Role Phone Domenico Jameson MD Primary Care Provider [phone] Encounter Details Date Type Department Care Team (Late st Contact Info) Description 2022 Telephone [facility] [address] [place] [address] Lorelei Funk RN [facility] [...] yet but plans to , taking to [facility] * Telephone Encounter - Lorelei Funk [...] as of this encounter Care Teams Welding Rod Coater Relationship Specialty Start Date End Date Domenico Jameson MD [address] [place] [address] PCP - General 11/21/20 documented as of this encounter
--- OUTSIDE RECORDS SUMMARY | 2024-06-16 23:52 | XMS_ITS | Encounter Summary ---
Author Organization Healthcare Address [address] [place] [address] Care Team Providers Care Construction Management Instructor Name Role Phone Domenico Jameson MD Primary Care Provider [phone] Encounter Details Date Type Department Care Team (Late st Contact Info) Description 11/24/2022 Telephone [place] [facility] [address] [place] [address] Keyana Raymond RN [facility] 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 Tobacco Use [...] RN - 11/24/2022 11:04 AM EDT Called [facility], no results for calpro yet. Will follow for results. documented in this encounter Plan of Treatment Not on file documented as of this encounter Visit Diagnoses Not on filedocumented in this encounter Additional Health Concerns Assessment Noted Time A fall risk assessment has been complete d for the patient 11/24/2022 10:50 AM EDT documented as of this encounter Care Teams Construction Management Instructor Relationship Specialty Start Date End Date Domenico Jameson MD [address] [place] [address] PCP - General 11/21/20 documented as of this encounter
--- OUTSIDE RECORDS SUMMARY | 2024-06-16 23:52 | XMS_ITS | Encounter Summary ---
Author Organization [facility] Address [address] [id number] Care Team Providers Care Road Grader Name Role Phone Domenico Jameson MD Primary Care Provider [phone] Reason for Referral * Cardiac Stress Testing (Routine) - Closed Specialty Diagnoses / Procedures Referred By Yony yung Referred To Contact Cardiology Diagnoses Palpitations Procedures Pediatric Holter Monitor Mj Reynolds MD [address] [facility] [address] [place] [address] Phone: tel: fax: Referral ID Status Reason Start Date Expiration Date Visits Re quested Visits Authorized [id number] Closed 04/30/2021 10/30/2022 1 1 Reason for Visit * Reason Comments Consult chest pain/SVT * Consultation (Routine) - Closed Specialty Diagnoses / Procedures Referred By Yony yung Referred To Contact Pediatric Cardiology Diagnoses SVT (supraventricular tachycardia) ([facility]) Shilo Penaloza MD [address] [address] Phone: tel: fax: Referral ID Status Reason Start Date Expiration Date V isits Requested Visits Authorized [id number] Closed Specialty Services Required 04/29/2021 10/29/2022 1 1 Encounter Details Date Type Department Care Team (Late st Contact Info) Description 04/30/2021 11:45 AM EDT Consult [facility] Pediatric Cardiology [address] [place] [address] Mj Reynolds MD [address] [place] [address] Supraventricular tachycardia (CMS/HCC) (Primary Dx); [...] Reynolds MD - 04/30/2021 11:45 AM EDT [facility] Division of Pediatric Cardiology Subjective Roxicarla Wilkinson [...] Abnormal Ventricular Rate 67 Atrial Rate 67 ND Interval 148 QRSD Interval 90 QT Interval 386 QTC Interval 408 P Reading 41 R Reading 71 T Wave Reading 55 Diagnosis Normal sinus rhythm Diagnosis with [...] ECG Atrial Rate 67 BPM MUSE ECG ND Interval 148 ms MUSE ECG QRSD Interval 90 ms MUSE ECG QT Interval 386 ms MUSE ECG QTC Interval 408 ms MUSE ECG P Reading 41 degrees MUSE ECG R Reading 71 degrees MUSE ECG T Wave Reading 55 degrees MUSE ECG Diagnosis Normal sinus [...] documented as of this encounter Care Teams Road Grader Relationship Specialty Start Date End Date Domenico Jameson MD [address] [place] [address] PCP - General 11/21/20 documented as of this encounter
--- OUTSIDE RECORDS SUMMARY | 2024-06-16 23:52 | XMS_ITS | Encounter Summary ---
Author Organization [facility] Address [address] [place] [address] Care Team Providers Care Director Of Academic Support Name Role Phone Domenico Jameson MD Primary Care Provider [phone] Reason for Referral * Imaging (Routine) - Closed Specialty Diagnoses / Procedures Referred By Yony yung Referred To Contact Cardiology Diagnoses Other chest pain Procedures Echo, Pediatric Transthoracic (TTE) Complete Shilo Penaloza MD [address] [place] [address] [address] Phone: tel: fax: Referral ID Status Reason Start Date Expiration Date V isits Requested Visits Authorized [id number] Closed Perform Procedure 2021 10/13/2022 1 1 Reason for Visit * Imaging (Routine) - Closed Specialty Diagnoses / Procedures Referred By Yony yung Referred To Contact Cardiology Diagnoses Other chest pain Procedures Echo, Pediatric Transthoracic (TTE) Complete Shilo Penaloza MD [address] [facility] [address] [place] [address] Phone: tel: fax: Referral ID Status Reason Start Date Expiration Date V isits Requested Visits Authorized [id number] Closed Perform Procedure 2021 10/13/2022 1 1 Encounter Details Date Type Department Care Team (Latest Contact Info) Description 04/20/2021 2:42 PM EDT - 04/20/2021 11:59 PM EDT Hospital Encounter [facility] Pediatric Cardiac Diagnostic Testing [address], [place] [address] Other chest pain Discharge Disposition: Home or [...] 04/20/2021 2:5 2 PM EDT Growth Chart: [facility] (Girls, 2- 20 Years) documented in [...] as of this encounter Care Teams Director Of Academic Support Relationship Specialty Start Date End Date Domenico Jameson MD [address] [place] [address] PCP - General 11/21/20 documented as of this encounter
[2024-06-16 23:53] VITALS: BP 111/70; PULSE 64; RESP 20; TEMP 36.7; O2SAT 99
--- OUTSIDE RECORDS SUMMARY | 2024-06-16 23:53 | XMS_ITS | Encounter Summary ---
Author Organization Healthcare Address [address] [place] [address] Care Team Providers Care Cigarette Packing Machine Operator Name Role Phone Unavailable Primary Care Provider Unavailabl e Encounter Details Date Type Department Care Team (Late st Contact Info) Description 09/20/2013 [facility] Vitals Encounter [facility] OUTPATIENT CONVERSIONS [address] [place] [address] ProviderCarlota MD [address] [place], [place] [id number] 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 Tobacco Use Types Packs/Day Years [...] 09/20/2013 9:1 0 AM EDT Growth Chart: [facility] (Girls, 2- 20 Years) documented in this encounter Plan of Treatment Not on file documented as of this encounter Visit Diagnoses Not on filedocumented in this encounter
--- OUTSIDE RECORDS SUMMARY | 2024-06-16 23:53 | XMS_ITS | Encounter Summary ---
Author Organization Healthcare Address [address] [place] [address] Care Team Providers Care Neurology Technologist Name Role Phone Unavailable Primary Care Provider Unavailabl e Encounter Details Date Type Department Care Team (Late st Contact Info) Description 06/13/2015 [facility]HR Vitals Encounter [facility] OUTPATIENT CONVERSIONS [address] [place] [address] ProviderCarlota MD [address] [place], [place] [id number] 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 Tobacco Use Types Packs/Day Years [...]
--- OUTSIDE RECORDS SUMMARY | 2024-06-16 23:53 | XMS_ITS | Encounter Summary ---
Author Organization Healthcare Address [address] [place] [address] Care Team Providers Care Wheel Assembler Name Role Phone Unavailable Primary Care Provider Unavailabl e Encounter Details Date Type Department Care Team (Late st Contact Info) Description 08/19/2016 [facility] AEHR Vitals Encounter [facility] OUTPATIENT CONVERSIONS [address] [place] [address] ProviderCarlota MD [address] [place], [place] [phone] 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 Tobacco Use Types Packs/Day Years [...] 08/19/2016 10: 21 AM EST Growth Chart: [facility] (Girls, 2- 20 Years) documented in this encounter Plan of Treatment Not on file documented as of this encounter Visit Diagnoses Not on filedocumented in this encounter
--- OUTSIDE RECORDS SUMMARY | 2024-06-16 23:53 | XMS_ITS | Encounter Summary ---
Author Organization Healthcare Address [address] [place] [address] Care Team Providers Care Monitor And Storage Bin Tender Name Role Phone Domenico Jameson MD [...] documented as of this encounter Care Teams Monitor And Storage Bin Tender Relationship Specialty Start Date End Date Domenico Jameson MD [address] [place] [address] PCP - General 11/21/20 documented as of this encounter
--- OUTSIDE RECORDS SUMMARY | 2024-06-16 23:53 | XMS_ITS | Encounter Summary ---
Author Organization [facility] Address [address] [place] [address] Care Team Providers Care Safety Instructor Name Role Phone Unavailable Primary Care Provider Unavailabl e Encounter Details Date Type Department Care Team (Late st Contact Info) Description 11/08/2013 [facility] AEHR Vitals Encounter [facility] OUTPATIENT CONVERSIONS [address] [place] [address] ProviderCarlota MD [address] [place] [address] 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 Tobacco Use Types Packs/Day Years [...] 11/08/2013 9:4 0 AM EDT Growth Chart: [facility] (Girls, 2- 20 Years) documented in this encounter Plan of Treatment Not on file documented as of this encounter Visit Diagnoses Not on filedocumented in this encounter
--- OUTSIDE RECORDS SUMMARY | 2024-06-16 23:53 | XMS_ITS | Encounter Summary ---
Author Organization Healthcare Address [address] [id number] Care Team Providers Care Automobile Designer Name Role Phone Domenico Jameson MD Primary Care Provider [phone] Reason for Visit * Reason Comments Abdominal Pain around belly button Encounter Details Date Type Department Care Team (Late st Contact Info) Description 04/01/2021 10:30 AM EDT [facility] [address] [place] [address] Joe Marc MD [address] [facility] [address] [place] [address] Postviral gastroparesis (Primary Dx); Chronic [...] 37.36% 04/01 10:28 AM EDT Growth Chart: [facility] (Girls, 2- 20 Years) documented in this encounter Miscellaneous Notes * Progress Notes - Joe Marc MD - 04/01/2021 10:30 AM EDT Subjective Dear Domenico Jameson MD, I had the pleasure of seeing Roxi Wilkinson who is a 15 y.o. female being seen as a established patient at the [facility] today with/for Abdominal [...] a therapist and an nurse practationer through [facility] [employer]. Temp: [36.2 ??C (97.1 ??F)] 36.2 [...] lymph nodes in neck: No lymphadenopathy Musculoskeletal [place] and station: Normal Digits and nails: Normal [...] patient reviewing previous testing and documentation, providing [id number] interview/exam/diagnosis, documenting in the EMR, and/or communicating [...] documented as of this encounter Care Teams Automobile Designer Relationship Specialty Start Date End Date Domenico Jameson MD [address] [place] [address] PCP - General 11/21/20 documented as of this encounter
--- OUTSIDE RECORDS SUMMARY | 2024-06-16 23:53 | XMS_ITS | Encounter Summary ---
Author Organization [facility] Address [address] [place] [address] Care Team Providers Care Multiple Wire Sawyer Name Role Phone Unavailable Primary Care Provider Unavailabl e Encounter Details Date Type Department Care Team (Late st Contact Info) Description 12/29/2015 [facility] Vitals Encounter [facility] OUTPATIENT CONVERSIONS [address] [place] [address] ProviderCarlota MD [address] [place] [address] 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 Tobacco Use Types Packs/Day Years [...] 12/29/2015 2:1 6 PM EDT Growth Chart: [facility] (Girls, 2- 20 Years) documented in this encounter Plan of Treatment Not on file documented as of this encounter Visit Diagnoses Not on filedocumented in this encounter
--- OUTSIDE RECORDS SUMMARY | 2024-06-16 23:53 | XMS_ITS | Encounter Summary ---
Author Organization Healthcare Address [address] [place] [address] Care Team Providers Care Port Crane Operator Name Role Phone Unavailable Primary Care Provider Unavailabl e Encounter Details Date Type Department Care Team (Late st Contact Info) Description 05/04/2017 [facility] Vitals Encounter [facility] OUTPATIENT CONVERSIONS [address] [place] [address] ProviderCarlota MD [address] [place], [place] [id number] 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 Tobacco Use Types Packs/Day Years [...]
--- OUTSIDE RECORDS SUMMARY | 2024-06-16 23:53 | XMS_ITS | Encounter Summary ---
Author Organization Healthcare Address [address] [id number] Care Team Providers Care Customer Services Supervisor Name Role Phone Domenico Jameson MD Primary Care Provider [phone] Encounter Details Date Type Department Care Team (Late st Contact Info) Description 03/12/2021 Telephone [facility] [address] [place] [address] Joe Marc MD [address] [place] [address] 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 Tobacco Use Types [...] optimal time of day to reach caller: [phone] Note: Please do not reply to this message. Follow-up communication and further actions as a result of this message need to be communicated with the patient directly, if the patient is not active onMyChart. If the patient is active on MyChart, they will receive notification of the communication/outcome via Meican. documented in this encounter Plan of Treatment Not on file documented as of this encounter Visit Diagnoses Not on filedocumented in this encounter Care Teams Customer Services Supervisor Relationship Specialty Start Date End Date Domenico Jameson MD [address] [place] [address] PCP - General 11/21/20 documented as of this encounter
== END 2024-06-17 00:04 | disposition home or self-care (01) ==
PROVIDERS: Emergency Provider Emergency Medicine
DX: R07.9 Chest pain, unspecified (principal)
CPT/HCPCS: 93005; 99283

== ENCOUNTER 2024-09-19 18:07 | Outpatient (CLI) | payer OTHER, SELFPAY | END 2024-09-19 23:59 | disposition home or self-care (01) | LOC: LAB.DROPOF 09-20 10:59 | PROVIDERS: PCP Nurse Practitioner; Visit Provider Nurse Practitioner | DX: R30.0 Dysuria (principal) | CPT/HCPCS: 87086 ==

== ENCOUNTER 2025-01-29 14:45 | Outpatient (CLI) | payer OTHER, SELFPAY ==
--- OUTSIDE RECORDS SUMMARY | 2025-01-29 14:47 | XMS_ITS | Clinical Summary ---
Author Organization [facility] Address [address] [place] [address] Care Team Providers Care Radar Systems Engineer Name Role Phone Domenico Jameson MD Primary Care Provider [phone] Allergies Active Allergy Reactions Criticality Noted [...] 74 11/24/2022 10:50 AM EDT Temperature 36.5 C (97.7 F) 11/24/2022 10:50 AM EDT Respiratory Rate 17 09/13/2022 9:46 AM EST [...] [facility]-HIV Screening 2004 [facility]-Hepatitis C Screening 2004 [facility]-/Child/Adol SDOH Screenings 2004 HPV Vaccines (1 - 3-dose series) 2019 [facility]- SDOH Screenings 2022 [facility]-Adult SDOH Screenings 2022 SCD-DIPCN-66 Vaccine ( season) 2024 04/23/2022, 06/01/2021, 03/07/2021 [facility]-Influenza Vaccine (#1) 2025 08/18/2018 [facility]-DTaP,Tdap,and Td Vaccines (7 - Td or Tdap) 01/27/2026 01/28/2016, 04/16/2008, 10/13/2005, Additional history exists [facility]-Zoster Vaccines (1 of 2) 2054 04/16/2008, 05/03/2005 [facility]-HIB Vaccines Aged Out 2004, 02/2005, 2004 No longer eligible based on patient's age to complete this topic [facility]-Hepatitis B Vaccines Completed 005, 2004, 2004 [facility]-Pneumococcal Vaccine: Pediatrics (0 to 5 Years) and At-Risk Patients (6 to 49 Years) Aged Out 01/21/2005, 2004, 2004 No longer eligible based on patient's age to complete this topic [facility]-IPV Vaccines Aged Out 04/16/2008, 06/2005, 2004, Additional history exists No longer eligible based on patient's age to complete this topic [facility]-Varicella Vaccines Completed 04/16/2008, 2004 [facility]-Hepatitis A Vaccines Completed 06/16/2018, 10/10 [facility]-Rotavirus Vaccines Aged Out No lo nger eligible based on patient's age to complete this topic Insurance [employer] Care Teams Radar Systems Engineer Relationship Specialty Start Date End Date Domenico Jameson MD [address] [place] [id number] PCP - General 11/21/20
--- OUTSIDE RECORDS SUMMARY | 2025-01-29 14:47 | XMS_ITS | Clinical Summary ---
Author Organization [facility] Address [address] [place] [address] Care Team Providers Care Editorial Assistant Name Role Phone Brian Jameson M.D. Primary Care Provider [phone] Source Comments [facility] is fully rolled out with thefollowing exceptions:[facility] Allergies Active Allergy Reactions Criticality Noted Date Comments Amoxicillin-Pot Clavulanate 10/25/19 15 Rash Medications polyethylene glycol 3350 (MIRALAX) powderIndication s:Abdominal pain, periumbilic,Unsp ecified constipation Take 1 Cap (17 gm total) by mouth 1 time a day as needed for constipation Mix 1 capful (17gm) in 8 ounces of fluid.. 527 gm 6 5 Active Active Problems Problem Noted Date Diagnosed Date Unspecified constipation 10/24/2014 Abdominal pain, periumbilic 10/24/2014 Resolved Problems Problem Noted Date Diagnosed Date Resolved Date Frequent loose stools 10/24/20142014 Family History Medical History Relation Name Comments Stomach Ulcer Father Diabetes Maternal Grandfather Irritable Bowel Syndrome Maternal Grandfather Abdominal Surgery in Childhood Maternal Grandmother Cancer Maternal Grandmother Relation Name Status Comments Father Maternal Grandfather Maternal Grandmother 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 Tobacco Use Types Packs/Day Years Used Date Smoking Tobacco: Passive Smo ke Exposure - Never Smoker Smokeless Tobacco: Never Comments Unknown Sex and Gender Information Value Date Recorded Sex Assigned at Not on file Legal Sex Female 10:47 AM EDT Gender Identity Not on file Sexual Orientation Not on file Last Filed Vital Signs Vital Sign Reading Time Taken Comments Blood Pressure 110/62 03/31/2015 2:36 PM EDT Pulse 76 03/31/2015 2:36 PM EDT Temperature - - Respiratory Rate - - Oxygen Saturation - - Inhaled Oxygen Concentration - - Weight 28.3 kg (62 lb 6.2 oz) 03/31/2015 2:36 PM EDT Height 132.8 cm (4' 4.28 ) 03/31/2015 2:36 PM ED T Body Mass Index 16.05 03/31/2015 2:36 PM EDT Plan of Treatment Health Maintenance Due Date Last Done Comments MMR IMMUNIZATION (1 of 1 - S tandard series) 2005 DTAP/Tdap/Td IMMUNIZATION (1 - Tdap) 2011 VARICELLA IMMUNIZATION (1 of 2 - 13+ 2-dose series) 2017 HPV IMMUNIZATION (1 - 3-dose series) 2019 MENINGOCOCCAL B VACCINE (1 o f 2 - Standard) 2020 HEPATITIS B IMMUNIZATION (1 of 3 - 19+ 3-dose series) 2023 COVID-19 Vaccine (1 - 2023-2 5 season) 2024 AMB SEASONAL FLU VACCINE (#1) 03/11/2025 HIB IMMUNIZATION Aged Out No longer e ligible based on patient's age to complete this topic IPV IMMUNIZATION Aged Out No longer e ligible based on patient's age to complete this topic MCV4 IMMUNIZATION Aged Out No longer eligible based on patient's age to complete this topic PNEUMOCOCCAL IMMUNIZATION Aged Out No longer eligible based on patient's age to complete this topic Respiratory Syncytial Virus (RSV) <20mo Aged Out No longer eligible b ased on patient's age to complete this topic Insurance ADINA RICHARD Care Teams Editorial Assistant Relationship Specialty Start Date End Date Brian Jameson M.D. [facility] [address] [place] [address] PCP - General External Family Practice 10/22/14
== END 2025-01-29 23:59 | disposition home or self-care (01) ==
LOC: LAB 14:46
PROVIDERS: PCP Family Medicine; Visit Provider Obstetrics & Gynecology
DX: Z34.90 Encounter for supervision of normal pregnancy, unspecified, unspecified trimester (principal)
CPT/HCPCS: 36415; 84144; 84702

== ENCOUNTER 2025-02-01 09:25 | Outpatient (CLI) | payer OTHER, SELFPAY ==
--- OUTSIDE RECORDS SUMMARY | 2025-02-01 09:27 | XMS_ITS | Clinical Summary ---
Author Organization [facility] Address [address] [place] [address] Care Team Providers Care Specialist Wound Care Name Role Phone Brian Jameson M.D. Primary Care Provider [phone] Source Comments [facility] is fully rolled out with thefollowing exceptions:[facility] Allergies Active Allergy Reactions Criticality Noted [...] this topic Insurance ADINA RICHARD Care Teams Specialist Wound Care Relationship Specialty Start Date End Date Brian Jameson M.D. [facility] [address] [place] [address] PCP - General External Family Practice 10/22/14
--- OUTSIDE RECORDS SUMMARY | 2025-02-01 09:27 | XMS_ITS | Clinical Summary ---
Author Organization [facility] Address [address] [place] [address] Care Team Providers Care Yarn Man Name Role Phone Domenico Jameson MD Primary Care Provider [phone] Allergies Active Allergy Reactions Criticality Noted [...] SDOH Screenings 2022 [facility]-Adult SDOH Screenings 2022 [id number] Vaccine ( season) 2024 04/23/2022, 06/01/2021, 03/07/2021 [...] patient's age to complete this topic Insurance [id number] [facility] [place] [id number] [employer] MEDICAID [employer] MEDICAID Care Teams Yarn Man Relationship Specialty Start Date End Date Domenico Jameson MD [address] [place] [address] PCP - General 11/21/20
== END 2025-02-01 23:59 | disposition home or self-care (01) ==
LOC: LAB 09:26
PROVIDERS: PCP Family Medicine; Visit Provider Obstetrics & Gynecology
DX: Z34.90 Encounter for supervision of normal pregnancy, unspecified, unspecified trimester (principal)
CPT/HCPCS: 36415; 84702

== ENCOUNTER 2025-02-05 22:55 | Emergency (ER) | payer OTHER, SELFPAY ==
[2025-02-05 23:27] VITALS: BP 112/65; PULSE 79; RESP 16; TEMP 36.7; O2SAT 100; BMI 18.1
--- OUTSIDE RECORDS SUMMARY | 2025-02-05 23:30 | XMS_ITS | Clinical Summary ---
Author Organization [facility] Address [address] [place] [address] Care Team Providers Care Financial Service Rep Name Role Phone Brian Jameson M.D. Primary Care Provider [phone] Source Comments [facility] is fully rolled out with thefollowing exceptions:[facility] Allergies Active Allergy Reactions Criticality Noted Date [...] this topic Insurance ADINA RICHARD Care Teams Financial Service Rep Relationship Specialty Start Date End Date Brian Jameson M.D. [facility] [address] [place] [address] PCP - General External Family Practice 10/22/14
--- OUTSIDE RECORDS SUMMARY | 2025-02-05 23:30 | XMS_ITS | Clinical Summary ---
Author Organization [facility] Address [address] [place] [address] Care Team Providers Care Bottle Assembler Name Role Phone Domenico Jameson MD Primary Care Provider [phone] Allergies Active Allergy Reactions Criticality Noted [...] SDOH Screenings 2022 [facility]-Adult SDOH Screenings 2022 [id number] Vaccine ( season) 2024 04/23/2022, 06/01/2021, 03/07/2021 [...] Insurance [employer] MEDICAID Care Teams Bottle Assembler Relationship Specialty Start Date End Date Domenico Jameson MD [address] [place] [address] PCP - General 11/21/20
--- NOTE | 2025-02-05 23:32 | PC.NURSE ---
ed provider at the bedside.
--- NOTE | 2025-02-05 23:45 | ED_ITS ---
Discharge Plan Disposition Patient Disposition: Home, Self-Care Prescriptions Prescriptions: New cephalexin 500 mg capsule 500 mg PO QID 7 Days Qty: 28 0RF No Action bupropion HCl [Wellbutrin XL] 150 mg tablet extended release 24 hr 150 mg PO DAILY Qty: 30 2RF Referrals Follow up/Referrals: Hyacinth Tuttle PA [Primary Care Provider, Medical] - See instructions Activity Restrictions/Add. Instructions Additional Instructions/Restrictions: Please take antibiotics as prescribed for treatment of possible urinary tract infection. Recommend starting MiraLAX daily to produce daily soft stools. If your symptoms worsen or return, consider more urgent follow-up. Clinical Impressions Clinical Impression: Abdominal pain, RLQ, First trimester Instructions Patient Instructions: DI for Acute Abdominal Pain Print Language Print Language: Serbian Discharge ED Provider: Howie Grayson General Adult HPI General Chief complaint: Abdominal Pain Stated complaint: 5 wks antepartem, pressure, pain R side Time Seen by Provider: 02/05/25 23:10 Mode of Arrival: Ambulatory Source of Information: Patient Description of Symptoms (Recalled from ER Triage Doc. by RN): Pt 5 weeks Having right lower quadrant pain Denies vaginal bleeding History of Present Illness HPI narrative: 19-year-old female, G1, P0 at 5 weeks presents for right-sided lower abdominal pain. Started around 4 PM, has been constant. Reports its about 6 out of 10. Denies any vaginal bleeding or discharge. Denies any current urinary symptoms. Reports that she was previously regular with bowel movements, but has become irregular recently and last movement was yesterday. Denies any fever. Related Data Previous Rx's ?Medication ?Instructions ?Recorded bupropion HCl 150 mg 24 hr tablet, 150 mg PO DAILY #30 tabs 01/30/25 extended release (Wellbutrin XL) cephalexin 500 mg capsule 500 mg PO QID 7 days #28 cap s 02/06/25 Allergies Allergy/AdvReac Type Severity Reaction Status Date / Time amoxicillin (From AUGMENTIN) Allergy Mild I-RASH Verified 01/30/25 16:05 clavulanic acid (From Allergy Mild I-RASH Verified 01/30/25 16:05 AUGMENTIN) azithromycin Allergy Verified 01/30/25 16:05 prednisone Allergy Verified 01/30/25 16:05 [facility] Disclaimer: The information contained in this section may have been updated after the patient was seen, as this information can be updated by other users. Medical History Sprain of foot, right Right ankle sprain Generalized anxiety disorder Major depressive disorder Depression Anxiety Urinary tract infection Migraine Asthma Surgical History History of tympanostomy tube placement History of wisdom tooth extraction 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 Smoking Status: Never smoker second hand exposure: Yes alcohol intake: never counseling given: No substance use type: denies use counseling given: No current occupational status: student and other Travel in the last 8 weeks?: None adopted: No caregiver/support person: No foster care: No household members: family housing: house lives independently: No marital status: single number of children: 0 number of grandchildren: 0 education level: other details: she will soon graduate in November 2022 Hx Recent Travel: No sexually active: Yes are you practicing safe sex: Yes caffeine: Yes physical activity: none montana/rastafari: None special montana needs: No working smoke detector in home: Yes fire extinguisher in home: Yes carbon monox detector in home: Yes firearms in home: Yes firearms unloaded and locked: Yes do you feel safe at home: Yes victim of physical abuse: No victim of emotional abuse: No victim of sexual abuse: No would you like helpful sources: No Have you lived/traveled outside US in past 30 days?: No Contact w/someone who lives/traveled outside US past 30 days?: No Exposure to someone with infectious disease in past 14 days?: No Do you have a fever (greater than 100.4 F or 38 C)?: No Have you tested positive for COVID-19?: No Exposed to someone with COVID-19 in past 14 days?: No Do you have a sore throat?: No Do you have a cough?: No Do you have any weakness?: No Do you have any diarrhea?: No Are you experiencing any unusual bleeding?: No Do you have any muscle aches/pain?: No Do you have any abdominal pain?: Yes Are you experiencing loss of taste or smell?: No Other Medical History Have you received the Flu Vaccine for this season: No Have you received the Pneumonia Vaccine: No ROS Obtained: Yes All systems reviewed & no additional complaints except as documented Physical Exam General General appearance: alert and in no apparent distress Head Head exam: atraumatic and normocephalic Eye Eye exam: Present normal appearance, PERRL and EOMI ENT ENT exam: Present normal oropharynx and normal external ear exam Neck Neck exam: Present normal inspection and full ROM Chest Chest inspection: Present normal inspection and symmetric chest wall rise; Absent tenderness Respiratory Respiratory exam: Present normal lung sounds bilaterally; Absent respiratory distress Cardiovascular Cardiovascular exam: Present regular rate and normal rhythm Abdominal Exam Abdominal exam: Present soft and tenderness (Mild, right lower quadrant); Absent distention or guarding Extremities Exam Extremities exam: Present normal inspection; Absent edema or joint swelling Back Exam Back exam: Present normal inspection; Absent tenderness Neurological Exam Neurological exam: Present alert and oriented X3; Absent motor sensory deficit Psychiatric Psychiatric exam: Present normal affect and normal mood Skin Skin exam: Present warm, dry and normal color Lymphatic Lymphatic Findings: no adenopathy Medical Decision Making Medical Records Medical records reviewed: Yes I reviewed the patient's medical records. Screening: Per USPSTF and CDC recommendations, given the prevalence of disease in our region, it is our hospital?s policy to screen for HIV and viral Hepatitis for all patients aged 18 and over and those with ongoing risk factors. Dariel Inquiry Pt receiving controlled substance: No Dariel was queried for this patient: No Vital Signs: 02/05/25 23:27 02/06/25 01:41 Temperature 98.0 F 98.1 F Temperature Source Oral Pulse Rate 74 Pulse Rate [Left Radial] 79 Respiratory Rate 16 16 Blood Pressure 112/62 Blood Pressure [Right Arm] 112/65 Blood Pressure Mean [Right Arm] 80 Blood Pressure Source [Right Arm] Automatic Cuff Blood Pressure Position Sitting Blood Pressure Position [Right Arm] Sitting 02 Sat by Pulse Oximetry 100 Oxygen Delivery Method Room Air Room Air Lab Data Lab results reviewed: Yes I reviewed the patient's lab results. Lab Results 02/05/25 23:52: Urine Color Yellow, Urine Appearance Clear, Urine pH 6.5, Ur Specific [place] 1.010, Urine Protein Negative, Urine Glucose (UA) Negative, Urine Ketones Negative, Urine Blood Negative, Urine Nitrate Negative, Urine Bilirubin Negative, Urine Urobilinogen 0.2, Ur Leukocyte Esterase Negative, Urine WBC 5-10, Ur Squamous Epith Cells 5-10, Urine Bacteria 3+ 02/06/25 00:10: WBC 5.6, RBC 4.11 L, Hgb 11.2 L, Hct 34.6 L, MCV 84.2, MCH 27.3, MCHC 32.4, RDW 13.3, Plt Count 223, MPV 10.5 H, Neut % (Auto) 55.4, Lymph % (Auto) 35.8, Dickenson % (Auto) 5.0, Eos % (Auto) 2.7, Baso % (Auto) 0.9, Neut # (Auto) 3.1, Lymph # (Auto) 2.0, Dickenson # (Auto) 0.3, Eos # (Auto) 0.2, Baso # (Auto) 0.1, Sodium 135 L, Potassium 3.5, Chloride 104, Carbon Dioxide 24, Anion Gap 10.5, BUN 5 L, Creatinine 0.40 L, Estimated Creat Clear 170, Estimated GFR 203, Est GFR ( Amer) 246, Glucose 98, Calcium 8.9, Total Bilirubin 0.4, A ST 38 H, ALT 11 L, Alkaline Phosphatase 78, Total Protein 7.5, Albumin 3.9, G lobulin 3.6 H, Albumin/Globulin Ratio 1.1, HCG, Quant 2648 H, HCV Ab GOGO w/Rflx PCR Qn Negative, HIV Ag/Ab Combo Qual Negative 02/06/25 00:10 02/06/25 00:10 Orders (Tests/Meds): ED MEDICATIONS Discontinued Medications Generic Name Dose Route Start Last Admin Trade Name Freq PRN Reason Stop Dose Admin Acetaminophen 1,000 mg 02/05/25 23:44 02/06/25 00:02 Acetaminophen 500mg Tab PO 02/05/25 23:45 1,000 mg ONCE ONE Administration Cephalexin HCl 500 mg 02/06/25 01:31 02/06/25 01:37 Cephalexin 500mg Capsule PO 02/06/25 01:32 500 mg ONCE ONE Administration ORDERS Category Date Time Status CBC w/Auto Diff [Complete Blood Count Auto Diff] Stat Lab 02/05/25 23:43 Completed CMP [Comprehensive Metabolic Panel] Stat Lab 02/05/25 23:43 Completed HCG,Quantitative Stat Lab 02/05/25 23:43 Completed HIV Combo Routine Lab 02/05/25 23:32 Completed Hepatitis C Ab Qual. W/ RFX Routine Lab 02/05/25 23:32 Completed UA [Urinalysis and Microscopic] Stat Lab 02/05/25 23:52 Completed Urine Culture Stat Micro 02/05/25 23:52 Received Medical Decision Narrative: 19-year-old female G1, P0 at 5 weeks presents for a few hours of right-sided lower abdominal pain. History was obtained via interactive discussion with patient. On arrival, patient is [afebrile, hemodynamically stable, satting appropriately, alert, oriented x4, GCS 15], moving all extremities spontaneously. Full physical exam performed and significant for mild lower abdominal tenderness Differential includes but is not limited to constipation, UTI, ectopic , appendicitis. Patient was given Tylenol for symptomatic management and correction of underlying abnormalities. Workup initiated including urinalysis, CBC CMP quantitative beta-hCG. Bedside ultrasound was performed, I was unable to visualize any intrauterine based on the transabdominal approach, though the this is not diagnostic given how early she is in .. On re-evaluation, patient reports that her pain is resolved. Laboratory workup independently interpreted by me and significant for urinalysis concerning for UTI. Beta-hCG appropriately elevated. No leukocytosis.. Given patient history, exam and workup, patient's presentation most likely represents mild lower abdominal pain secondary to either constipation, UTI or some combination thereof. Given her pain is mild and resolved and she has had no vaginal bleeding, I do not think we need to go looking for an ectopic despite the fact that we do not see an obvious intrauterine transabdominally at 5 weeks. Gave her strict return precautions for ectopic and appendicitis. Also recommended she begin taking MiraLAX as needed for constipation to have daily soft stools. I prescribed her cephalexin for treatment of UTI. Recommend she follow-up with [facility]. Patient discharged in stable condition pain-free. Procedures Risk/Benefits of Procedure(s) Were Explained: Yes Critical Care Critical Care Time Critical Care Time: No
[2025-02-06] LABS: Microscopic, Urine URINE MICROSCOPIC (MICROSCOPIC)
[2025-02-06] MEDS: ACETAMINOPHEN 500MG TAB 1000 MG PO (00:02)
[2025-02-06 00:11] LABS: Bilirubin,Urine Negative (Negative); Color,Urine YELLOW (Yellow); Glucose,Urine (UA) Negative (Negative); Ketones,Urine Negative (Negative); Leukocyte Esterase,Urine Negative (Negative); PH,Urine 6.5 (5.0-8.5); Protein,Urine Negative (Negative); Specific Gravity, Urine 1.010 (1.005-1.030); Urobilinogen,Urine 0.2 EU/dl (0.2)
[2025-02-06 00:25] LABS: Albumin Level 3.9 g/dl (3.5-5.0); Chloride 104 mmol/L (98-107); Potassium 3.5 mmoL/L (3.5-5.1); Sodium 135 mmol/L (136-145)
[2025-02-06 00:28] LABS: Alanine Aminotransferase 11 U/L (12-78); Albumin/Globulin Ratio 1.1 (1.1-1.8); Alkaline Phosphatase 78 U/L (38-126); Anion Gap 10.5 mEq/L (5-15); Aspartate Amino Transferase 38 U/L (14-36); Bilirubin,Total 0.4 mg/dl (0.2-1.3); Blood Urea Nitrogen 5 mg/dl (7-17); Calcium 8.9 mg/dl (8.4-10.2); Carbon Dioxide 24 mmol/L (22.0-30.0); Creatinine Clearance Estimated 170 mL/min (50-200); Creatinine,Serum 0.40 mg/dl (0.52-1.04); Estimated Glomerular Filt Rate 203 ml/min (>60); GFR (African American) 246 ML/MIN (>60); Globulin 3.6 g/dL (1.3-3.2); Glucose 98 mg/dl (74-100); Total Protein,Serum 7.5 g/dl (6.3-8.2)
[2025-02-06 00:32] LABS: Bacteria,Urine 3+ /lpf
[2025-02-06 01:16] LABS: Hematocrit 34.6 % (37.0-47.0); Hemoglobin 11.2 g/dL (12.2-16.2); Immature Granulocytes % 0.2 %; Mean Corpuscular HGB Conc 32.4 g/dL (31.8-35.4); Mean Corpuscular Hemoglobin 27.3 pg (27.0-31.2); Mean Corpuscular Volume 84.2 fl (81-99); Nucleated Red Blood Cells % 0 %; Platelet Count 223 K/mm3 (142-424); Red Blood Count 4.11 M/mm3 (4.20-5.40); Red Cell Distribution Width-SD 41.2 fL; White Blood Count 5.6 K/mm3 (4.5-13.0)
[2025-02-06 01:31] LABS: Hepatitis C Ab Qual. W/ RFX NEGATIVE (Negative)
[2025-02-06 01:41] VITALS: BP 112/62; PULSE 74; RESP 16; TEMP 36.7; O2SAT 100
== END 2025-02-06 01:42 | disposition home or self-care (01) ==
PROVIDERS: Emergency Provider Emergency Medicine; PCP Physician Assistant
DX: O26.891 Other specified pregnancy related conditions, first trimester (principal); R10.31 Right lower quadrant pain; Z3A.01 Less than 8 weeks gestation of pregnancy
CPT/HCPCS: 80053; 81001; 84702; 85025; 86803; 87086; 87389; 99283

== ENCOUNTER 2025-02-27 15:57 | Outpatient (CLI) | payer OTHER, SELFPAY ==
--- OUTSIDE RECORDS SUMMARY | 2025-02-27 16:01 | XMS_ITS | Clinical Summary ---
Author Organization [facility] Address [address] [place] [address] Care Team Providers Care Senior Budget Analyst Name Role Phone Domenico Jameson MD Primary Care Provider [phone] Allergies Active Allergy Reactions Criticality Noted [...] C Screening 2004 [facility]-Infant/Child/Adol SDOH Screenings 2004 HPV Vaccines (1 - 3-dose series) 2019 [facility]- SDOH Screenings 2022 [facility]-Adult SDOH Screenings 2022 [id number] Vaccine ( season) 2024 04/23/2022, 06/01/2021, 03/07/2021 [...] Insurance [employer] MEDICAID Care Teams Senior Budget Analyst Relationship Specialty Start Date End Date Domenico Jameson MD [address] [place] [address] PCP - General 11/21/20
--- OUTSIDE RECORDS SUMMARY | 2025-02-27 16:01 | XMS_ITS | Clinical Summary ---
Author Organization [facility] Address [address] [place] [address] Care Team Providers Care Early Childhood Director Name Role Phone Brian Jameson M.D. Primary Care Provider [phone] Source Comments [facility] is fully rolled out with thefollowing exceptions:[facility] Allergies Active Allergy Reactions Criticality Noted Date [...] season) 2024 AMB SEASONAL FLU VACCINE (#1) 05/11/2025 HIB IMMUNIZATION Aged Out No longer e [...] this topic Insurance ADINA RICHARD Care Teams Early Childhood Director Relationship Specialty Start Date End Date Brian Jameson M.D. [facility] [address] [place] [address] PCP - General External Family Practice 10/22/14
[2025-02-27 16:57] LABS: Hematocrit 33.5 % (37.0-47.0); Hemoglobin 11.3 g/dL (12.2-16.2); Immature Granulocytes % 0.3 %; Mean Corpuscular HGB Conc 33.7 g/dL (31.8-35.4); Mean Corpuscular Hemoglobin 27.9 pg (27.0-31.2); Mean Corpuscular Volume 82.7 fl (81-99); Nucleated Red Blood Cells % 0 %; Platelet Count 233 K/mm3 (142-424); Red Blood Count 4.05 M/mm3 (4.20-5.40); Red Cell Distribution Width-SD 39.7 fL; White Blood Count 7.2 K/mm3 (4.5-13.0)
[2025-02-27 18:05] LABS: Hepatitis C Ab Qual. W/ RFX NEGATIVE (Negative)
[2025-02-28 08:30] LABS: RPR W/RFX Titers Nonreactive (Nonreactive)
[2025-03-01 07:10] LABS: Hepatitis B Surface Antigen Negative (Negative)
[2025-03-01 08:13] LABS: Rubella Antibodies, IgG 2.12 index (Immune >0.99)
[2025-03-04 21:21] LABS: Neisseria gonorrhoeae, NAA Negative (Negative)
== END 2025-02-27 23:59 | disposition home or self-care (01) ==
PROVIDERS: PCP Physician Assistant; Visit Provider Obstetrics & Gynecology
DX: Z34.81 Encounter for supervision of other normal pregnancy, first trimester (principal); Z3A.00 Weeks of gestation of pregnancy not specified
CPT/HCPCS: 36415; 85025; 86592; 86762; 86803; 86850; 87086; 87340; 87389; 87491; 87591

== ENCOUNTER 2025-04-05 09:42 | Outpatient (CLI) | payer OTHER, SELFPAY ==
--- OUTSIDE RECORDS SUMMARY | 2023-11-16 12:30 | XMS_ITS ---
[facility] Address [address] [place] [id number] Care Team Providers Care Pit Recorder Name Role Phone Morelia Jameson Primary Care Provider Hyacinth Tuttle [phone] Allergies Allergen (clinical drug ingredient) Drug/Non Drug Allergy documented on EMR Reaction Allergy Type Onset Date Status amoxicillin / clavulanate Augmentin rash Drug Allergy Active azithromycin Azithromycin hives Drug Allergy A ctive predniSONE rash Drug Allergy Active Results Component Value Reference Range Notes Arthritis profile Reviewed date:11/21/2023 10:46:12 AM Interpretation: Performing Lab: Notes/Report: H-TSH Reviewed date:11/21/2023 10:31:00 PM Interpretation: Performing Lab: Notes/Report: TSH 0.60 0.465-4.68 uIU/mL H-CBC Reviewed date:11/17/2023 01:27:03 PM Interpretation: Performing Lab: Notes/Report: WBC 7.2 4.5-13.0 K/mm3 RBC 4.51 4.20-5.40 M/mm3 HGB 12.9 12.2-16.2 g/dL HCT 38.8 37.0-47.0 % MCV 86.0 81-99 fl MCH 28.6 27.0-31.2 pg MCHC 33.2 31.8-35.4 g/dL RDW 13.3 11.5-17.5 % PLT 301 142-424 K/mm3 MPV 8.1 7.4-10.4 fl NE% 61.7 37.0-80.0 % LY% 29.2 10-50 % MO% 3.8 1.7-9.3 % EO% 3.9 0.1-12.0 % BA% 1.4 0.1-2.0 % NE# 4.5 1.8-7.8 K/mm3 LY# 2.1 0.7-4.5 K/mm3 MO# 0.3 0.1-1.0 K/mm3 EO# 0.3 0.0-0.4 K/mm3 BA# 0.1 0-0.2 K/mm3 H-CMP Reviewed date:11/21/2023 10:31:00 PM Interpretation:gap 16.1 Performing Lab: Notes/Report: NA 140 136-145 mmol/L K 4.1 3.5-5.1 mmoL/L CL 100 98-107 mmol/L CO2 28 22.0-30.0 mmol/L GAP 16.1 5-15 mEq/L BUN 7 7-17 mg/dl CREATT 0.70 0.52-1.04 mg/dl GFRAA 130 >60 ML/MIN EGFR 108 >60 ml/min GLU 81 74-100 mg/dl CA 9.5 8.4-10.2 mg/dl BILIT 0.4 0.2-1.3 mg/dl AST 32 14-36 U/L ALT 17 12-78 U/L TP 7.3 6.3-8.2 g/dl ALB 4.6 3.5-5.0 g/dl GLOB 2.7 1.3-3.2 g/dL AGRATIO 1.7 1.1-1.8 ALP 86 38-126 U/L H-Magnesium Reviewed date:11/21/2023 10:31:00 PM Interpretation:Normal Performing Lab: Notes/Report: MG 1.7 1.6-2.3 mg/dl H-Folate Reviewed date:11/21/2023 10:31:00 PM Interpretation:Normal Performing Lab: Notes/Report: FOL 8.15 Normal Adult: 2.76->20 ng/mL Folate Deficent: 1.04-2.79ng/mL H-VITAMIN B12 Reviewed date:11/21/2023 10:31:00 PM Interpretation:Normal Performing Lab: Notes/Report: VITB12 584 239-931 pg/mL H-T4 free Reviewed date:11/17/2023 01:27:03 PM Interpretation: Performing Lab: Notes/Report: T4F 0.81 0.78-2.19 ng/dl Reason For Referral Diagnosis 1 Irritable bowel synd braeden, unspecified type (K58.9) [facility] Referring Provider First Name Hyacinth Referring Provider Last Name Marry Referring Provider Speciality Physician Sub Plant Manager Referred Provider Chris Gandara Referred Provider Specialty Gastroentero logy General Notes Hyacinth Tuttle 2023 5:30:57 PM > Pt would like an appt with Dr. Gandara., Cathi Glass 11/17/2023 10:07:58 AM > sent referral Referral Priority Routine REASON FOR VISIT no specific reason given Medications Medication SIG (Take, Route, Frequency, Duration) Notes Start Date End Date Status Vitamin B Complex - as directed Orally Active Desvenlafaxine Succinate ER 25 MG 1 tab(s) orally once a day; Duration: 30 day(s) Not-Taking Probiotic Formula 1-250 BILLION-MG 1 cap(s) orally once a day Active Pristiq 25 MG 1 tablet Orally Once a day; Duration: 30 day(s) Active Flovent HFA 44 MCG/ACT 2 puff(s) inhaled BID; Duration: 30 day(s) Active Multiple Vitamin - 1 cap(s) orally once a day Active Rizatriptan Benzoate 5 MG 1 tab(s) orall y once a day 05/20/2022 Active Ondansetron HCl 4 mg TAKE ONE TABLET BY MOUTH EVERY 8 HOURS NEEDED; Duration: 7 Active Problems Problem Type SNOMED Code ICD Code Onset Dates Problem Status W/U Status Risk Notes Problem Irritable bowel syndrome (63928922) Irritable bowel syndrome, unspecified type (K58.9) Active confirmed Vital Signs Blood pressure systolic 110 mm Hg 11/16/19 24 Blood pressure diastolic 70 mm Hg 024 Heart Rate 75 /min 11/16/2023 Height 63 in 11/16/2023 Weight 104.4 lbs 11/16/2023 BMI 18.49 kg/m2 11/16/2023 Encounters Encounter Location Date Provider [facility] [address] [facility] [address] [facility] [address] [place] [phone] 11/16/2023 Hyacinth Marry Excessive sweating R 61 ; Syncope, near R55 ; Irritable bowel syndrome, unspecified type K58.9 ; Myalgia M79.10 ; Diffuse arthralgia M25.50 ; B12 deficiency E53.8 and Other fatigue R53.83 Assessments Encounter Date Diagnosis (ICD Code) Assessment Notes Treatment Notes Treatment Clinical Notes Section Notes 11/16/2023 Excessive sweating (ICD-10 - R61) 11/16/2023 Syncope, near (ICD-10 - R55) 11/16/2023 Irritable bowel syndrome, unspecified type (ICD-10 - K58.9) 11/16/2023 Myalgia (ICD-10 - M79.10) 11/16/2023 Diffuse arthralgia (ICD-10 - M25.50) 11/16/2023 B12 deficiency (ICD-10 - E53.8) 11/16/2023 Other fatigue (ICD-10 - R53.83) Plan Of Treatment Referrals Referral Date Details 11/16/2023 11/16/2023, Chris zafar Next Appt Details Follow Up: via phone to repo rt test results, Reason: Progress Notes * MELISSA KWANLESDOB: 4 (19 yo F)Acc No.[id number]:11/16/2023 Progress Notes Patient: SONYA BLANC Provider: JERONIMO Oliva :2005 A ge:18 Y S ex:Female Date:11/16/2023 Address:[address] [place] [address] [phone] Pcp:Morelia Jameson Subjective: * Chief Complaints: * 1 . No specific reason given. * HPI: H PI: Mom states the patient has been breaking out in sweats and almost passed out. Pt states she is still having stomach issues. Mom states she would like to get blood work check her vitamin levels and thyroid. Pt states on Tuesday she was playing in the yard and when she threw a water balloon she felt a pain in the right side but that is doing better. * ROS: D ERMATOLOGY: no R melissa. n o H moses. G ASTROENTEROLOGY: no N ausea. n o V omiting. n o D iarrhea.? U ROLOGY: no D ifficulty urinating. n o B lood in urine. * Medical History: C -Diff Colitis, 06/2015, Anxiety, Disruptive Mood Dysregulation Disorder (Moutain Comp), Depression. * Surgical History: E ar Tubes , Ear Tubes 02/2009, Ear Tubes 05/2010, Ears Tubes 08/17/2011, EGD and Colonoscopy 06/2015. * Hospitalization/Major Diagno stic Procedure: C ough, Sore Throat- [facility] 11/2015, Sore Throat- [facility] [place] 03/22/2021. * Family History: F ather: alive. M other: alive. P aternal Grand Father: alive. P aternal Grand Mother: alive. M aternal Grand Father: alive. M aternal Grand Mother: alive. 1 brother(s) , 2 sister(s) . . * 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: C URRENT TOBACCO USE S moking Status: Patient does NOT smoke. H ome smoke detector use: yes. Marital Status: Single. Past smoking status: no. * Medications: T aking Vitamin B Complex - Tablet as directed Orally , Taking Pristiq 25 MG Tablet Extended Release 24 Hour 1 tablet Orally Once a day , Taking Flovent HFA 44 MCG/ACT Aerosol 2 puff(s) inhaled BID , Taking Probiotic Formula 1-250 BILLION-MG Capsule 1 cap(s) orally once a day , Taking Multiple Vitamin - Capsule 1 cap(s) orally once a day , Taking Rizatriptan Benzoate 5 MG Tablet Disintegrating 1 tab(s) orally once a day , Taking Ondansetron HCl 4 mg Tablet TAKE ONE TABLET BY MOUTH EVERY 8 HOURS NEEDED , Not-Taking Desvenlafaxine Succinate ER 25 MG Tablet Extended Release 24 Hour 1 tab(s) orally once a day , Medication List reviewed and reconciled with the patient * Allergies: A ugmentin: rash, predniSONE: rash, Azithromycin: hives. Objective: * Vitals: W t:104.4, Temp:97.9, BP:110/70, HR:75, Nurse:ALYSSA, Ht: 63, BMI:18.49. * Examination: G eneral Examination: General Appearance: N AD. H EENT: u nremarkable.?Oral cavity: n o lesions, mucosa moist and WNL, no erythema. N vivien: s upple, no lymphadenopathy. C hest: n ormal shape and expansion. H eart: R SR. L ungs: c lear to auscultation. A bdomen: bowel sounds present, soft and nontender. N eurologic Exam: alert and oriented, normal cranial nerves II-XII sensory & motor WNL, Rhomberg neg. Skin: n ormal, no rash. P eripheral pulses: n ormal (2+) bilaterally. E xtremities: n o leg edema. Assessment: * Assessment: 1. E xcessive sweating - R61 (Primary) 2 . S yncope, near - R55 ?3. I rritable bowel syndrome, unspecified type - K58.9 4 . M yalgia - M79.10 5 . D iffuse arthralgia - M25.50 6 . B 12 deficiency - E53.8 7 . O ther fatigue - R53.83 Plan: * Treatment: Value Reference Range T SH 0.60 0.465-4.68 - uIU/mL * Hyacinth Tuttle 11/17/2023 1:2 6:54 PM > see TE ?LAB: H-T4 free (Collection Date & Time - 11/16/2023 05:06 PM)* Value Reference Range T 4F 0.81 0.78-2.19 - ng/dl * Hyaicnth Tuttle 11/17/2023 1:2 6:54 PM > see TE 2.?Syncope, near?LAB: H-CBC (Collection Date & Time - 11/16/2023 05:06 PM)* Value Reference Range W BC 7.2 4.5-13.0 - K/mm3 * R BC 4.51 4.20-5.40 - M/mm3 * H GB 12.9 12.2-16.2 - g/dL * H CT 38.8 37.0-47.0 - % * M CV 86.0 81-99 - fl * M CH 28.6 27.0-31.2 - pg * M CHC 33.2 31.8-35.4 - g/dL * R DW 13.3 11.5-17.5 - % * P LT 301 142-424 - K/mm3 * M PV 8.1 7.4-10.4 - fl * N E% 61.7 37.0-80.0 - % * L Y% 29.2 10-50 - % * M O% 3.8 1.7-9.3 - % * E O% 3.9 0.1-12.0 - % * B A% 1.4 0.1-2.0 - % * N E# 4.5 1.8-7.8 - K/mm3 * L Y# 2.1 0.7-4.5 - K/mm3 * M O# 0.3 0.1-1.0 - K/mm3 * E O# 0.3 0.0-0.4 - K/mm3 * B A# 0.1 0-0.2 - K/mm3 * Hyacinth Tuttle 11/17/2023 1:2 6:54 PM > see TE ?LAB: H-CMP (Collection Date & Time - 11/16/2023 05:06 PM)?gap 16.1* Value Reference Range N A 140 136-145 - mmol/L * K 4.1 3.5-5.1 - mmoL/L * C L 100 98-107 - mmol/L * C O2 28 22.0-30.0 - mmol/L * G AP 16.1 H 5-15 - mEq/L * B UN 7 7-17 - mg/dl * C REATT 0.70 0.52-1.04 - mg/dl * G FRAA 130 >60 - ML/MIN * E GFR 108 >60 - ml/min * G JERROD 81 74-100 - mg/dl * C A 9.5 8.4-10.2 - mg/dl * B ILIT 0.4 0.2-1.3 - mg/dl * A ST 32 14-36 - U/L * A LT 17 12-78 - U/L * T P 7.3 6.3-8.2 - g/dl * A LB 4.6 3.5-5.0 - g/dl * G LOB 2.7 1.3-3.2 - g/dL * A GRATIO 1.7 1.1-1.8 - * A LP 86 38-126 - U/L * Hyacinth Tuttle 11/17/2023 1:2 6:54 PM > see TE 3.?Irritable bowel syndrome, unspecified type? Referral To:Chris Case??Gastroenterology ?Reason: 4.?Myalgia?LAB: H-Magnesium (Collection Date & Time - 11/16/2023 05:06 PM)?Normal* Value Reference Range M G 1.7 1.6-2.3 - mg/dl * Hyacinth Tuttle 11/17/2023 1:2 6:54 PM > see TE 5.?Diffuse arthralgia?LAB: Arthritis profile (Collection Date & Time - 11/21/2023)* see duplicate order 6.?B12 deficiency?LAB: H-VITAMIN B12 (Collection Date & Time - 11/16/2023 05:06 PM)?Normal* Value Reference Range V ITB12 584 239-931 - pg/mL * MarryHyacinth Fonseca 11/17/2023 1:2 6:54 PM > see TE 7.?Other fatigue?LAB: H-Folate (Collection Date & Time - 11/16/2023 05:06 PM)?Normal* Value Reference Range F OL 8.15 - ng/mL * MarryHyacinth Fonseca 11/17/2023 1:2 6:54 PM > see TE * Follow Up: v ia phone to report test results * Images: Billing Information: * Visit Code: 60597 Office Visit, Est Pt., Level 4. * Procedure Codes: * Electronic signature of JERONIMO Horton on 04/08/2025 at 11:02 AM EDT Sign off status: Pending * Provider: JERONIMO Oliva Date: 0 11/16/2023 Generated for Printi ng/Faxing/eTransmitting on: 0 04/08/2025 11:02 AM EDT History and Physical Notes * Examination Category Sub-Category Detail Notes Category Not es General Examination HEENT: unremarkable Heart: RSR Lungs: clear to auscultatio n Abdomen: bowel sounds present , soft and nontender Extremities: no leg edema General Appearance: NAD Skin: normal, no rash Neurologic Exam: alert and oriented, normal cranial nerves II-XII sensory & motor WNL, Rhomberg neg Neck: supple, no lymphaden opathy Oral cavity: no lesions, mucosa m oist and WNL, no erythema Peripheral pulses: normal (2+) bilatera lly Chest: normal shape and exp ansion Consultation Request Notes Referral Date Referring Provider Referred Provider Not es 11/16/2023 Hyacinth Tuttle Justin
--- OUTSIDE RECORDS SUMMARY | 2024-05-29 12:15 | XMS_ITS ---
Author Organization [facility] Address [address] [facility] [address] [id number] Care Team Providers Care Finish Grinder Name Role Phone Morelia Jameson Primary Care Provider [phone] Joanna Paredes Unavailable [phone] Allergies Allergen (clinical drug ingredient) Drug/Non Drug [...] growth Performing Lab: Notes/Report: Test performed by [facility] [address] [place] [address] , [address], [place] [address] Yo Cedillo MD, Hris Manager CLIA: [id number] Specimen Source Urine - Void Culture, Urine [...] Encounter Location Date Provider Diagnosis [facility] [place] [place] [id number] 05/29/2024 Joanna Paredes UTI (lower urinary tract [...] Reason: Progress Notes * SONYA KWANDOB: 4 (19 yo F)Acc No.[id number]:05/29/2024 Progress Notes Patient: MELISSA BLANCLYNN Provider: JACQUI Ford :2005 A ge:19 Y S ex:Female Date:05/29/2024 Address:[address] [place], [place] [address] [id number] Pcp:Morelia Jameson Subjective: * Chief Complaints: * [...] Diagno stic Procedure: C janell, Sore Throat- [facility] 11/2015, Sore Throat- [facility] 03/22/2021. * Family History: F ather: alive. [...] * Procedure Codes: 9 [address] [place], [address] Urinalysis, no micro * Follow Up: p rn * Images: Billing Information: * Visit Code: 37438 Office Visit, Est Pt., Level 3. * Procedure Codes: [address] [place]. [address] Urinalysis, no micro. * Electronic signature of Aide Paredes APRN on 04/08/2025 at 11:02 AM EDT Sign off status: Pending * Provider: JACQUI Ford Date: 07/29/2023 Generated for Printi ng/Faxing/eTransmitting on: 0 04/08/2025 11:02 AM EDT History and Physical Notes * HPI (History [...]
--- OUTSIDE RECORDS SUMMARY | 2024-05-30 11:00 | XMS_ITS ---
Author Organization [facility] Address [address] [facility] [address] [place] [id number] Care Team Providers Care Stacker Attendant Name Role Phone Morelia Jameson Primary Care Provider [phone] Hyacinth Tuttle [phone] REASON FOR VISIT hurting in lower back, concerns of kidney infection Encounters Encounter Location Date Provider Diagnosis [facility] [address] [place] [id number] 05/30/2024 Hyacinth Tuttle Plan Of Treatment No Information Progress Notes * SONYA KWANDOB: 4 (19 yo F)Acc No.[id number]:05/30/2024 Progress Notes Patient: SONYA BLANC Provider: JERONIMO [...] status: Pending * Provider: JERONIMO Oliva Date: 1 07/30/2023 Generated for Irma pablo/Tali/Chandra on: 0 04/08/2025 11:02 AM EDT
--- OUTSIDE RECORDS SUMMARY | 2024-06-28 09:15 | XMS_ITS ---
[facility] Address [address] [place] [id number] Care Team Providers Care Road Crossing Guard Name Role Phone Morelia Jameson Primary Care Provider [phone] Hyacinth Tuttle [phone] Allergies Allergen (clinical drug ingredient) Drug/Non Drug [...] Encounter Location Date Provider Diagnosis [facility] [address] [facility] [address] [place] [phone] 06/28/2024 Hyacinth Tuttle Acute otitis media, bilateral [...] Follow Up: prn, Reason: Progress Notes * REMYBRYANNASONYADOB: 4 (19 yo F)Acc No.[id number]:06/28/2024 Progress Notes Patient: SONYA BLANC Provider: JERONIMO Oliva :2005 A ge:19 Y S ex:Female Date:06/28/2024 Address:[address] [place] [address] [id number] Pcp:Morelia Jameson Subjective: * [...] Diagno stic Procedure: C janell, Sore Throat- [facility] 11/2015, [place] [facility] [place]. * Family History: F ather: alive. [...] STREP A ASSAY W/OPTIC, Modifiers: QW , 71355 Flu Test- Nasal Swab, Modifiers: QW , 69780 COVID TEST IN HOUSE, Modifiers: QW * Follow Up: p rn * Images: Billing Information: * Visit Code: 60748 Office Visit, Est Pt., Level 3. * Procedure Codes: 50132 STREP A ASSAY W/OPTIC. Modifiers: QW 96996 Flu Test- Nasal Swab. Modifiers: QW 11330 COVID TEST IN HOUSE. Modifiers: QW * Electronic signature of JERONIMO Horton on 04/08/2025 at 11:02 AM EDT Sign off status: Pending * Provider: JERONIMO Oliva Date: 1 08/29/2023 Generated for Irma ng/Tali/eTransmitting on: 0 04/08/2025 11:02 AM EDT History [...]
--- OUTSIDE RECORDS SUMMARY | 2024-12-11 10:45 | XMS_ITS ---
Author Organization [facility] Address [address] [place] [phone] Care Team Providers Care Hyperbaric Welder Diver Name Role Phone Morelia Jameson Primary Care Provider Joanna Paredes [phone] Allergies Allergen (clinical drug ingredient) Drug/Non Drug [...] - as directed Orally Active Vital Signs Blood pressure systolic 100 mm Hg 12/12/19 25 Blood pressure diastolic 70 mm Hg 025 Heart Rate 75 /min 12/11/2024 Height 63 in 12/11/2024 Weight 106.0 lbs 12/11/2024 BMI 18.78 kg/m2 12/11/2024 Encounters Encounter Location Date Provider Diagnosis [facility] [address] [place] [phone] 12/11/2024 Joanna Paredes Pustule L08.9 Assessments Encounter [...] * SONYA KWANDOB: 4 (19 yo F)Acc No.[id number]:12/11/2024 Progress Notes Patient: SONYA BLANC Provider: JACQUI Ford :2005 A ge:19 Y S ex:Female Date:12/11/2024 Address:[address] [place], [place] [phone] Pcp:Morelia Jameson Subjective: * Chief Complaints: [...] Diagno stic Procedure: C ough, Sore Throat- [facility] 11/2015, S[facility]- [facility] [place]/22/[place]21. * Family History: [...] * Images: Billing Information: * Visit Code: 00760 Office Visit, Est Pt., Level 3. * Procedure Codes: 1036F TOBACCO NON-USER. G8783 BP SCR PRFRM RCMDD DEFIND SCR INTVL. G8752 MOST RECENT SYSTOLIC BP < 140MM HG. G8754 MOST RECENT DIASTOLIC BP < 90MM HG. * Electronic signature of Aide Paredes APRN on 04/08/2025 at 11:02 AM EDT Sign off status: Pending * Provider: JACQUI Ford Date: 12/11/2024 Generated for Irma pablo/Tali/Rakeshitting on: 0 04/08/2025 11:02 AM EDT History [...]
[2025-04-05 16:25] LABS: Coronavirus 19, PCR Not Detected (NotDetected); Influenza A, PCR Not Detected (NotDetected); Influenza B, PCR Not Detected (NotDetected)
--- OUTSIDE RECORDS SUMMARY | 2025-04-08 11:02 | XMS_ITS | Clinical Summary ---
Author Organization [facility] Address [address] [place] [address] Care Team Providers Care Warehouse Coordinator Name Role Phone Domenico Jameson MD Primary Care Provider [phone] Allergies Active Allergy Reactions Criticality Noted [...] worse Palpitations 05/02/2021 Other chest pain 04/30/2021 Periumbilical abdominal pain 10/24/2014 Resolved Problems Problem Noted Date Diagnosed Date Resolved Date Constipation 10/24/2014 03/31/2025 Family History Medical History Relation Name Comments [...] SDOH Screenings 2022 [facility]-Adult SDOH Screenings 2022 [id number] Vaccine (2024- season) 2025 04/23/2022, 06/01/2021, 03/07/2021 [facility]-Influenza Vaccine (#1) 2025 [...] Insurance [employer] MEDICAID Care Teams Warehouse Coordinator Relationship Specialty Start Date End Date Domenico Jameson MD [address] [place] [address] PCP - General 11/21/20
--- OUTSIDE RECORDS SUMMARY | 2025-04-08 11:02 | XMS_ITS | Patient Health Record ---
Author Organization [facility] Address [address] [place] [id number] Care Team Providers Care Aviation Maintenance Technician Name Role Phone Morelia Jameson Primary Care Provider Joanna Paredes Unavailable [phone] Hyacinth Tuttle Unavailable [phone] Allergies Allergen (clinical drug ingredient) Drug/Non Drug [...] Interpretation:neg Performing Lab: Notes/Report: neg Result: neg Urinalysis - Inhouse Reviewed date:05/30/2024 07:35:37 AM Interpretation: Performing Lab: Notes/Report: Color/Clarity dark yellow Leuk trace Nitrite pos Urobili 3.2 Protein neg pH 6.5 Blood 3+ Sp. Gr. 1.005 Ketone neg Bili neg Gluc neg P-Culture, Urine Reviewed date:06/04/2024 10:30:41 AM Interpretation:No growth Performing Lab: Notes/Report: CLIA: [id number] Yo Cedillo MD, Synoptic Meteorologist [address] [place] [address] , [address], [place] [address] Test performed by Fastr, LensX Lasers Specimen Source Urine - Void Culture, Urine See Below Final Report : No growth Medications Medication SIG (Take, Route, Frequency, Duration) [...] B Complex - as directed Orally Active Immunizations Vaccine Route Administration Date Status Comme nts xFluzone (6mos and older)-trivalent IM Intramuscular 06/30/2010 Administered xFluzone (6mos and older)-trivalent IM Intramuscular 05/08/2012 Administered xFluzone (6mos and older)-trivalent IM Intramuscular 05/14/2013 Administered xFlu shot-36 months and older IM Intramuscular 03/18/2009 Administered xFlu shot-36 months and older IM Intramuscular 06/18/2011 Administered Varivax SC Subcutaneous 05/03/2005 Administered Varivax SC Subcutaneous 04/16/2008 Administered Tetanus Tdap-Adacel (over 7yrs) IM Intramuscular 01/28/2016 Administered Tetanus Dtap-Daptacel (under 7yrs) IM Intramuscular 2004 Administered Tetanus Dtap-Daptacel (under 7yrs) IM Intramuscular 2004 Administered Tetanus Dtap-Daptacel (under 7yrs) IM Intramuscular 2004 Administered Tetanus Dtap-Daptacel (under 7yrs) IM Intramuscular 10/13/2005 Administered Tetanus Dtap-Daptacel (under 7yrs) IM Intramuscular 04/16/2008 Administered Prevnar (PCV7) IM Intramuscular 2004 Administered Prevnar (PCV7) IM Intramuscular 2004 Administered PREVNAR IM Intramuscular 01/21/2005 Administered ppd ID Intradermal 02/23/2022 Administered MMR SC Subcutaneous 07/27/2005 Administered MMR SC Subcutaneous 03/06/2008 Administered Menactra IM Intramuscular 01/28/2016 Administered Menactra IM Intramuscular 07/01/2020 Administered IPV IM Intramuscular 2004 Administered IPV IM Intramuscular 2004 Administered IPV IM Intramuscular 2004 Administered IPV IM Intramuscular 04/16/2008 Administered HIB IM Intramuscular 2004 Administered HIB IM Intramuscular 2004 Administered HIB IM Intramuscular 2004 Administered HEPB VACC PED/ADOL DOSE IM IM Intramuscular 2004 Adm inistered HEPB VACC PED/ADOL DOSE IM IM Intramuscular 2004 Adm inistered HEPB VACC PED/ADOL DOSE IM IM Intramuscular 2004 Adm inistered Hep A- Pediatric IM Intramuscular 10/31/2017 Administered Hep A- Pediatric Unknown 06/16/2018 Administered Fluzone PF Quad (6-35 months) Unknown 08/18/2018 Administered COVID 19 Pfizer Unknown 03/07/2021 Administered COVID 19 Pfizer Unknown 06/01/2021 Administered COVID 19 Pfizer Unknown 06/01/2021 Administered Problems Problem Type SNOMED Code ICD Code Onset Dates Problem Status W/U Status Risk Notes Problem Strep throat (84454934) Strep throat (J02.0) Active confirmed Problem Seasonal allergy (548257333) Seasonal allergies (J30.2) Active confirmed Problem Mixed anxiety and depressive disorder (915574232) Depression with anxiety (F41.8) Active confirmed Problem Amenorrhea (29111646) Amenorrhea (N91.2) Active confirmed Problem Environmental allergy (461997490) Environmental allergies (Z91.09) Active confirmed Problem Streptococcal pharyngitis (12416907) Streptococcal pharyngitis (J02.0) Active confirmed Problem Bronchitis (80438225) Bronchitis (J40) Active confirmed Problem Migraine without aura, not refractory (452881061) Migraine without aura and without status migrainosus, not intractable (G43.009) Active confirmed Problem Verruca plantaris (37475902) Plantar wart, right foot (B07.0) Active confirmed Problem Acute pharyngitis (048886491) Pharyngitis, unspecified etiology (J02.9) Active confirmed Problem Disruptive mood dysregulation disorder (246225424) Disruptive mood dysregulation disorder (F34.81) Active confirmed Problem Irritable bowel syndrome (13097786) Irritable bowel syndrome, unspecified type (K58.9) Active confirmed Problem Gastroduodenitis (645411745) Gastritis without bleeding, unspecified chronicity, unspecified gastritis type (K29.70) Active confirmed Problem Low vision right eye, normal vision left eye (disorder) (722507599179772) Decreased vision of right eye (H54.7) Active confirmed Problem Seasonal allergic rhinitis (977132065) Seasonal allergic rhinitis, unspecified trigger (J30.2) Active confirmed Problem Allergic rhinitis (91169984) Acute allergic rhinitis (J30.9) Active confirmed Vital Signs Heart Rate 75 /min 12/11/2024 Blood pressure diastolic 70 mm Hg 12/11/2024 Height 63 in 12/11/2024 Blood pressure systolic 100 mm Hg 12/11/2024 Weight 106.0 lbs 12/11/2024 BMI 18.78 kg/m2 12/11/2024 Encounters Encounter Location Date Provider Diagnosis [facility] [address] [place] [address] [place] [id number] 05/29/2024 Joanna Paredes UTI (lower urinary tract infection) N39.0 [facility] [address] [place] [address] [place] [id number] 06/28/2024 Hyacinth Tuttle Acute otitis media, bilateral H66.93 and Acute URI J06.9 [facility] [address] [place] [address] [place] Martinez [id number] 12/11/2024 Joanna Paredes Pustule L08.9 Assessments Encounter Date Diagnosis (ICD Code) Assessment Notes Treatment Notes Treatment Clinical Notes Section Notes 05/29/2024 UTI (lower urinary tract infection) (ICD-10 - N39.0) good water intake 06/28/2024 Acute otitis media, bilateral (ICD-10 - H66.93) 06/28/2024 Acute URI (ICD-10 - J06.9) Has cough medication at home. 12/11/2024 Pustule (ICD-10 - L08.9) Antibiotic sent in, may stop if it gets better. Use moist heat a few times a day. Leave open to air no makeup or creams Plan Of Treatment Pending Test Test Name Order Date H-COVIDPANEL 04/03/2021 H-HCG Qualitative, Serum 09/09/2021 Insurance Providers Payer Name Payer Address Payer Phone Subscriber Number Group Number Insured Name Patient Relationship to Insured Coverage Start Date Coverage End Date AETNA [facility] [address] [place], [place] [id number] SONYA KWAN Self - patient is the insured Medications Administered Medication Instructions Date of Administration Dosage Notes Bicillin CR 900/300 10/30/2009 2 mL Medical (General) History Medical History History ICD Code C-Diff Colitis, 06/2015 Anxiety Disruptive Mood Dysregulation Disorder ( Moutain Comp) Depression Surgical History Surgery Date(Month/Year) Ear Tubes Ear Tubes 02/2009 Ear Tubes 05/2010 Ears Tubes 08/17/2011 EGD and Colonoscopy 06/2015 Hospitalization History Reason Date(Month/Year) Sore Throat- [facility] 03/22/2021 Cough, Sore Throat- [facility] 11/27 16
--- OUTSIDE RECORDS SUMMARY | 2025-04-08 11:03 | XMS_ITS | Data Portability ---
Author Organization [place] [facility] & DEONTE Farmer ADMIN Address [address] [place] [id number] Assessment Encounter Date Assessment Date Assessment LastModified by Organization Details LastModified Time 03/15/2024 03/15/2024 Last EGD/colonosco py performed in 2015. Not available 03/15/2024 14:33:40 Plan of Treatment Reminders Order Date Submit Date Provider Last Modified By Organization Details Last Modified Time Details Appointments None recorded. Lab celiac disease serology panel, serum 2023 [place], [address], [address], [place], [address], 4 16:12:36 Referral None recorded. Procedures None recorded. Surgeries None recorded. Imaging US, abdomen, complete 2023 [email or web address], [address] [place], [address], 4 10:46:05 Medication Orders None recorded. Patient TargetsNo targets recorded. Patient Instructions Encounter Date Encounter Id Patient Instructions Last Modified By Organization Details Last Modified Time 02/16/2024 [id number] Follow up in 4-6 weeks. [email or web address] Not available 02/16/2024 11:07:29 03/15/2024 [id number] Follow up 2-3 weeks after colonoscopy. Not available 03/15/2024 14:33:49 Reason for Referral None Reported. Results Created Date Observation Date Name Description Value Unit Range Abnormal Flag Note LastModifiedBy Organization Detail LastModifiedTime 02/16/20 24 02/17/2024 DEBORAH C DISEA SE PANEL endomysial antibody IgA NEGATI VE negati ve Not Available [facility] ([facility]) [address] [facility], [place], [address], 02/17/2024 16:12:36 02/16/20 24 02/17/2024 DEBORAH C DISEA SE PANEL T-transgluta minase (ttg) IgA <2 U/mL 0-3 Negat michelle 0 - 3 Weak Posit michelle 4 - 10 Posit michelle >10 Tissu e Trans gluta herminia e (tTG) has been ident ified as the endom ysial antig en. Studi es have demon str- ated that endom ysial IgA antib odies have over 99% speci ficit y for glute n sensi tive enter opath y. Not Available [facility] ([facility]) [address] [facility], [place], [address], 02/17/2024 16:12:36 02/16/20 24 02/17/2024 DEBORAH C DISEA SE PANEL immunoglobul in A, qn, serum 139 mg/dL 87-352 normal Not Available [facility] ([facility]) [address] [facility], [place], [address], 02/17/2024 16:12:36 03/06/20 24 03/06/2024 US, abdom en [facility] [address] [place] [address] Phone: Fax: Name: ONDINA KWAN Exam Date: 024 : 004 Age 18 years Gender : F Access ion: [id number] Physic dusty: YASMINE FIGUEROA [place] [place] HSV: Outpat ient Exam: ABDOME N US PROCED URE:US ABDOME N. HISTOR Y:Alyssa ent is a 18 year old Female with abd pain. COMPAR MONTSERRAT:N one availa ble. TECHNI QUE: Two-di mensio nal graysc arminda ultras ound of the abdome n was perfor med. Color Dopple r imagin g was also perfor med. FINDIN GS: The pancre as demons trates a normal homoge nous echote xture with the tail not well seen due to overly ing bowel gas. The liver measur es 13.0 cm in length and demons trates a homoge neous echote xture withou t intrah epatic biliar y dilata tion. No masses are visual ized. The main portal vein demons trates normal hepato pedal flow. The gallbl adder demons trates normal anecho ic echote xture withou t perich olecys tic fluid or wall thicke nato. There are no gallst ones. The common bile duct measur es 0.2 cm. The right kidney measur es 10.4 cm in length . Renal cortic al echote xture is normal . There is no hydron ephros is. There are no stones . There are no cysts. The left kidney measur es 10.8 cm in length . Renal cortic al echote xture is normal . There is no hydron ephros is. There are no stones . There are no cysts. The spleen measur es 12.1 cm in length and demons trates normal echote xture. There is no eviden ce of aneury sm within the visual ized segmen ts of the abdomi nal aorta. IVC is unrema rkable . IMPRES JUSTIN: Unrema rkable ultras ound of the abdome n. No acute findin gs. Thank you for allowi samy us to assist in the care of this patien t. Electr onical ly signed by:Luis Armando Estrada MD02/09 08:38 PM EDT RP Workst ation: SEALWR [id number] Dictat ed By: Daljit Estrada Transc ribed By: Transc ribed On: 9:53 AM Electr onical ly signed by: Daljit Estrada Thank you for referr ONDINA Milian to [facility]. Legall y authen ticate d by ÁNGEL YANEZ 0 03-06 09:53: 18 CC'ed Logic: Orderi ng Provid er: CAROLINA UNDERWOOD Attend ing Provid er: CAROLINA YASMINE Admitt ing Provid er: CAROLINA UNDERWOOD [email or web address] [facility] [address], [place], [address], 03/14/2024 11:45:38 Result Notes None recorded. Medical Equipment None Reported. Medications Name Sig Start Date Stop Date Status Note LastModified by Organization Details LastModified Time amoxicillin 500 mg capsule TAKE ONE CAPSULE BY MOUTH THREE TIMES DAILY FOR 10 DAYS -- FINISH ALL MEDICINE -- 02/15 completed Not Available Not Available Not Available methocarbam ol 500 mg tablet TAKE ONE TABLET BY MOUTH THREE TIMES DAILY NEEDED FOR PAIN MAY CAUSE DROWSINES S active Not Available Not Available No t Available ondansetron HCl 4 mg tablet TAKE ONE TABLET BY MOUTH EVERY 8 HOURS NEEDED active Not Available Not Available No t Available acetaminoph en 500 mg tablet TAKE TWO TABLETS BY MOUTH EVERY 6 HOURS NEEDED FOR PAIN active Not Available Not Available No t Available promethazin e 25 mg tablet TAKE ONE TABLET BY MOUTH THREE TIMES DAILY NEEDED FOR NAUSEA AND VOMITING MAY CAUSE DROWSINES S active Not Available Not Available No t Available ibuprofen 400 mg tablet TAKE ONE TABLET BY MOUTH EVERY 6 HOURS NEEDED FOR moderate pain --TAKE WITH FOOD-- active Not Available Not Available No t Available ibuprofen 600 mg tablet TAKE ONE TABLET BY MOUTH EVERY 6 HOURS NEEDED FOR PAIN --TAKE WITH FOOD-- active Not Available Not Available No t Available bromphenira mine-pseudo ephedrine-D M 2 mg-30 mg-10 mg/5 mL oral syrup TAKE 1 TEASPOONF UL (5 ML) BY MOUTH EVERY 6 HOURS NEEDED FOR COUGH active Not Available Not Available No t Available ondansetron 4 mg disintegrat ing tablet DISSOLVE ONE TABLET BY MOUTH EVERY 8 HOURS NEEDED FOR NAUSEA active Not Available Not Available No t Available cefdinir 300 mg capsule TAKE ONE CAPSULE BY MOUTH TWICE DAILY FOR 10 DAYS -- FINISH ALL MEDICINE -- active Not Available Not Available No t Available peg 3350-electr olytes 236 gram-22.74 gram-6.74 gram-5.86 gram solution TAKE DIRECTED active Not Available Not Available No t Available tranexamic acid 650 mg tablet TAKE TWO TABLETS BY MOUTH THREE TIMES DAILY FOR 5 DAYS. take ON THE first DAY of menstrual CYCLE FOR UP TO 5 DAYS active Not Available Not Available No t Available Suprep Bowel Prep Kit 17.5 gram-3.13 gram-1.6 gram oral solution Take 6 ounces twice a day by oral route as directed for 1 day, for colonosco py prep. 2023 active Not Available Not Available Not Avai lable Estarylla 0.25 mg-0.035 mg tablet TAKE ONE TABLET BY MOUTH EVERY DAY active Not Available Not Available No t Available desvenlafax ine succinate ER 25 mg tablet,exte nded release 24 hr TAKE ONE TABLET BY MOUTH EVERY DAY active Not Available Not Available No t Available Vitals Date Recorded Body weight Body mass index (BMI) [Percentile] Per age and sex Body mass index (BMI) Provider Name and Address Organization Details Last Updated DateTime 02/16/2024 38259.01 g 4 % 17.7 kg/m2 YASMINE FIGUEROA NP [address] [place], [address], [facility] & [place] 03/15/2024 14:31:45 Date Recorded Body height Heart rate Heart rate Oxygen saturation Oxygen saturation in Arterial blood by Pulse oximetry Body temperature Systolic And Diastolic Provider Name and Address Organization Details Last Updated DateTime 4 162.56 cm 78 /min 74 /min 97 % 97 % 97.9 [degF] 119/80 mm[Hg] [facility] & [place] 4 10:06:02 Date Recorded Body height Body mass index (BMI) Body mass index (BMI) [Percentile] Per age and sex Body weight Oxygen saturation Oxygen saturation in Arterial blood by Pulse oximetry Heart rate Body temperature Heart rate Systolic And Diastolic Provider Name and Address Organization Details Last Updated DateTime 4 162.56 cm 18.3 kg/m2 8 % 35798.3 1 g 99 % 99 % 71 /min 97.9 [degF] 72 /min 121/83 mm[Hg] [facility] & [place] 4 11:31:02 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 None recorded. Functional Status None recorded. Mental Status None recorded. Family History Nothing Reported. Medical History No medical history recorded. Gynecological HistoryNo gynecological history recorded. Obstetrics History GPAL:G 0 P 0 0 0 0 Past Encounters Encounter ID Performer Location Encounter Start Date Encounter Closed Date Diagnosis/Indication Diagnosis SNOMED-CT Code Diagnosis ICD10 Code Diagnosis IMO Codes Diagnosis Note [id number] YASMINE FIGUEROA NP [facility] [address] [address] 02/16/2024 09:48:21 02/16/2024 10:42:24 Abdominal pain 41625602 R10.9 Obtain abdominal ultrasound .Check for celiac disease. Nausea 245518150 R11.0 Samples of FDgard provided.W linda discussed EGD, she would like to start conservati vely.Writt en material on the low FODMAP diet provided. She is hesitant to try diet.Okay to continue zofran as needed. Urgent portia ab for stool 25944596 R15.2 Suspect this is related to constipati on. BM does not always feel complete.R ecommend start low dose metamucil daily, adjust dose as tolerated. Increase water intake and physical activity.C onsider further work up with colonoscop y. [id number] YASMINE FIGUEROA NP [facility] [address] [address] 03/15/2024 11:24:03 03/15/2024 12:16:03 Abdominal pain 83545441 R10.9 Abdominal US 03/06/24 unremarkab le.Continu e IBgard as needed. Discussed trial of lactaid if she is going to consume dairy. Nausea 590087890 R11.0 EGD recommende d for persistent nausea and abdominal pain.Okay to continue zofran as needed. Altered johanne wel function 61020403 R19.4 Intermitte nt diarrhea with urgency. Possibly related to IBS, but with history of colitis I'd like to rule out IBD. Colonoscop y with possible biopsy recommende d.Restart metamucil, 1 capsule daily. Increase water intake. Walk frequently . Health Concerns Section Related Observation LastModified by Organization Detjosh ls LastModified Time None Recorded Concern Status LastModified by Organization Details LastModified Time None Recorded Advance Directives Directive None Recorded Payers Insurance Date Sequence Insurance Name Policy Number Policy Fischer Covered Member ID Fischer Member ID Guarantor Name 02/16/2024 1 *SELF PAY* As caesar Kwan 05/05/2024 1 AETNA [facility] (MEDICAID HMO) Roxi Kwan [id number] Roxi Kwan Notes Date Note Type Note Provider Name and Address Organization Details Recorded Time 02/16/2024 text/html Roxi Kwan is a 18 year old female here today by referral for abdominal pain and nausea.Referring provider is JERONIMO Higgins. The patient was previously an established patient at the [facility]. I've reviewed those records that are available. She underwent EGD and colonoscopy in 2015 for evaluation of chronic diarrhea and abdominal pain. This was within 4 wks of a recent viral illness and C diff. 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 Histologically there was some acute features of mild active colitis in the R,L colon and the TI had active ileitis. We decide to monitor her. She was tried on a dairy free trial and there was no change in her complaints. 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 Fecal calprotectin has been normal. She also has a history of post infectious gastroparesis and was taking Omeprazole and erythromycin at one time. She is no longer on either medication. She does have a hard time finishing meals. She denies GERD, bloating, or abdominal distension. She was last seen at the clinic in November 2022. She complained of stool urgency with eating and it was suspected she had baseline constipation, but that IBD was a differential. Reportedly calprotectin at that time was normal. CRP unremarkable. She is unsure if she's ever had testing for celiac disease. Reports no recent abdominal imaging. Her weight is stable. She states she has always been small, around 100 lbs, but was on a medication previously that caused a 30 lb weight gain. She is back to baseline at 103 lbs today. Today she complains of frequent, diffuse abdominal pain. Often it is located below her belly button and is described as cramping and upset. She reports nausea and uses Zofran as needed. No vomiting. Eating and anxiety worsens symptoms and having a BM often relieves pain. Equate stomach relief is also helpful. Her bowels move anywhere from once to three times daily. She has stool urgency after meals, at times does not pass BM. Stool is formed to loose, denies hematochezia. IBgard did relieve abdominal discomfort, but left a peppermint taste in her mouth all day which she did not like. YASMINE FIGUEROA, [facility] [address], [place], [address], [place] [facility] [place] & [place] 02/16/2024 11:08:55 03/15/2024 text/html Roxi Kwan is a 18 year old female here today by referral for abdominal pain and nausea.PREVIOUS: Referring provider is JERONIMO Higgins. The patient was previously an established patient at the [facility]. I've reviewed those records that are available. She underwent EGD and colonoscopy in 2016 for evaluation of chronic diarrhea and abdominal pain. This was within 4 wks of a recent viral illness and C diff. 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 Histologically there was some acute features of mild active colitis in the R,L colon and the TI had active ileitis. We decide to monitor her. She was tried on a dairy free trial and there was no change in her complaints. 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 Fecal calprotectin has been normal. She also has a history of post infectious gastroparesis and was taking Omeprazole and erythromycin at one time. She is no longer on either medication. She does have a hard time finishing meals. She denies GERD, bloating, or abdominal distension. She was last seen at the clinic in November 2022. She complained of stool urgency with eating and it was suspected she had baseline constipation, but that IBD was a differential. Reportedly calprotectin at that time was normal. CRP unremarkable. She is unsure if she's ever had testing for celiac disease. Reports no recent abdominal imaging. Her weight is stable. She states she has always been small, around 100 lbs, but was on a medication previously that caused a 30 lb weight gain. She is back to baseline at 103 lbs today. Today she complains of frequent, diffuse abdominal pain. Often it is located below her belly button and is described as cramping and upset. She reports nausea and uses Zofran as needed. No vomiting. Eating and anxiety worsens symptoms and having a BM often relieves pain. Equate stomach relief is also helpful. Her bowels move anywhere from once to three times daily. She has stool urgency after meals, at times does not pass BM. Stool is formed to loose, denies hematochezia. IBgard did relieve abdominal discomfort, but left a peppermint taste in her mouth all day which she did not like. CURRENT: Today she continues to complain of nausea and diffuse abdominal pain occurring every other day. Dairy is a known trigger for pain and diarrhea. IBgard does offer some relief. She did not follow the low FODMAP diet as recommended. She took 1 capsule Metamucil daily, as recommended, for 1 week and then stopped. Stool was firm while taking, but she has difficulty remembering to take medications. She does not drink alcohol, use tobacco or marijuana. She does vape. YASMINE FIGUEROA, [place] [address] [facility], [place], [address], [facility] - [facility] - [place] & [place] 03/15/2024 14:34:02 OBGyn Episode No OBEpisode recorded.
== END 2025-04-05 23:59 ==
LOC: LAB.DROPOF 04-08 10:55
PROVIDERS: PCP Nurse Practitioner; Visit Provider Nurse Practitioner
DX: J06.9 Acute upper respiratory infection, unspecified (principal)
CPT/HCPCS: 87631

== ENCOUNTER 2025-05-22 12:55 | Outpatient (CLI) | payer OTHER, SELFPAY ==
--- OUTSIDE RECORDS SUMMARY | 2024-05-29 11:15 | XMS_ITS ---
[facility] Address [address] [facility] [address] [id number] Care Team Providers Care Personal Care Worker Name Role Phone Morelia Jameson Primary Care Provider Joanna Paredes Unavailable [phone] Allergies Allergen (clinical drug ingredient) Drug/Non Drug Allergy documented on EMR Reaction Allergy Type Onset Date Status amoxicillin / clavulanate Augmentin rash Drug Allergy Active azithromycin Azithromycin hives Drug Allergy A ctive predniSONE rash Drug Allergy Active Results Component Value Reference Range Notes Urinalysis - Inhouse Reviewed date:05/30/2024 07:35:37 AM Interpretation: Performing Lab: Notes/Report: Color/Clarity dark yellow Leuk trace Nitrite pos Urobili 3.2 Protein neg pH 6.5 Blood 3+ Sp. Gr. 1.005 Ketone neg Bili neg Gluc neg P-Culture, Urine Reviewed date:06/04/2024 10:30:41 AM Interpretation:No growth Performing Lab: Notes/Report: Test performed by [facility] [address] [place] [address] , [address], [place] [address] Yo Cedillo MD, Cleaner Signs CLIA: [id number] Specimen Source Urine - Void Culture, Urine See Below Final Report : No growth REASON FOR VISIT possible UTI Medications Medication SIG (Take, Route, Frequency, Duration) Notes Start Date End Date Status Probiotic Formula 1-250 BILLION-MG 1 cap(s) orally once a day Active Multiple Vitamin - 1 cap(s) orally once a day Active Rizatriptan Benzoate 5 MG 1 tab(s) orall y once a day 05/20/2022 Active Ondansetron HCl 4 mg TAKE ONE TABLET BY MOUTH EVERY 8 HOURS NEEDED; Duration: 7 Active Bactrim DS 800-160 MG 1 tablet Orally bi d; Duration: 5 days 05/29/2024 Active Vitamin B Complex - as directed Orally Active Pristiq 25 MG 1 tablet Orally Once a day; Duration: 30 day(s) Active Flovent HFA 44 MCG/ACT 2 puff(s) inhaled BID; Duration: 30 day(s) Active Vital Signs Blood pressure systolic 120 mm Hg 05/29/20 24 Blood pressure diastolic 80 mm Hg 024 Heart Rate 70 /min 05/29/2024 Height 63 in 05/29/2024 Weight 105.8 lbs 05/29/2024 BMI 18.74 kg/m2 05/29/2024 Encounters Encounter Location Date Provider Diagnosis [facility] [address] [facility] [place] [id number] 05/29/2024 Joanna Paredes UTI (lower urinary tract infection) N39.0 Assessments Encounter Date Diagnosis (ICD Code) Assessment Notes Treatment Notes Treatment Clinical Notes Section Notes 05/29/2024 UTI (lower urinary tract infection) (ICD-10 - N39.0) good water intake Plan Of Treatment Medication Medication Name Sig Start Date Stop Date Notes Bactrim DS 800-160 MG 1 tablet Orally bi d; Duration: 5 days 05/29/2024 Treatment Notes Assessment Notes UTI (lower urinary tract infection) good water intake Next Appt Details Follow Up: prn, Reason: Progress Notes * SONYA KWANDOB: 4 (20 yo F)Acc No.[id number]:05/29/2024 Progress Notes Patient: MELISSA BLANCLYNN Provider: JACQUI Ford :2005 A ge:19 Y S ex:Female Date:05/29/2024 Address:[address] [place], [place] [address] [id number] Pcp:Morelia Jameson Subjective: * Chief Complaints: * 1 . possible UTI. * HPI: U rology: 19 year old female presents with c/o burning sensation P t sts she had some burning this morning and took some off brand of the azo pills and sts that did help, but she would like something to treat it. Denies : frequent urination. D enies : suprapubic pain.?Denies : hematuria. D enies : fever. Pt sts her symptoms started this morning. * ROS: D ERMATOLOGY: no R melissa. [...] 06/2015. * Hospitalization/Major Diagno stic Procedure: C janell, Sore Throat- [facility] 11/2015, Sore Throat- [facility] 03/22/2021. * Family History: F ather: alive. [...] BY MOUTH EVERY 8 HOURS NEEDED , Medication List reviewed and reconciled with the patient * Allergies: A ugmentin: rash, predniSONE: rash, Azithromycin: hives. Objective: * Vitals: W t:105.8, Temp:98.8, BP:120/80, HR:70, O2 Sat:99% on RA, Nurse:KARYN, Ht: 63, BMI:18.74. * Examination: G eneral Examination: General Appearance: NAD, appears healthy, alert, pleasant. H eart: RRR. L ungs: CTAB A&P. A bdomen: bowel sounds present, soft and nontender, no guarding or rigidity, no CVA tenderness. N eurologic Exam: alert and oriented. Assessment: * Assessment: 1. U TI (lower urinary tract infection) - N39.0 (Primary) Plan: * Treatment: Value Reference Range C ulture, Urine See Below - * S pecimen Source Urine - Void - * Joanna Paredes 06/04/2024 10:30:42 AM > Notes: good water intake?? * Labs: * L ab: Urinalysis - Inhouse (Collection Date & Time - 05/29/2024) Value Reference Range C olor/Clarity dark yellow * L euk trace * N itrite pos * U robili 3.2 * P rotein neg * p H 6.5 * B lood 3+ * S p. Gr. 1.005 * K etone neg * B kadi neg * G pierre neg * Dipika Rea 05/29/2024 4:32 :04 PM > , Provider reviewed results while patient in office.Joanna Paredes 05/30/2024 7:35:38 AM > * Procedure Codes: 9 [address] [place], [address] Urinalysis, no micro * Follow Up: p rn * Images: Billing Information: * Visit Code: 43605 Office Visit, Est Pt., Level 3. * Procedure Codes: [address] [place]. [address] Urinalysis, no micro. * Electronic signature of Aide Paredes APRN on 05/22/2025 at 01:08 PM EST Sign off status: Pending * Provider: JACQUI Ford Date: 07/29/2023 Generated for Printi ng/Faisig/eTransmitting on: 07/22/2024 01:08 PM EST History and Physical Notes * HPI (History of Present Illness) Category Sub-Category Detail Notes Category Not es Urology frequent urination Pt sts he r symptoms started this morning burning sensation Pt sts she had some burning this morning and took some off brand of the azo pills and sts that did help, but she would like something to treat it suprapubic pain hematuria fever Examination Category Sub-Category Detail Notes Category Not es General Examination Heart: RRR Lungs: CTAB A&P Abdomen: bowel sounds present , soft and nontender, no guarding or rigidity, no CVA tenderness General Appearance: NAD, appears healthy , alert, pleasant Neurologic Exam: alert and oriented
--- OUTSIDE RECORDS SUMMARY | 2024-05-30 10:00 | XMS_ITS ---
Author Organization Andrea Address [address] [facility] [address] [facility] [address] [place] [id number] Care Team Providers Care Clinical Exercise Physiologist Name Role Phone Morelia Jameson Primary Care Provider [phone] Hyacinth Tuttle [phone] REASON FOR VISIT hurting in lower back, concerns of kidney infection Encounters Encounter Location Date Provider Diagnosis [facility] [address] [place] [id number] 05/30/2024 Hyacnith Tuttle Plan Of Treatment No Information Progress Notes * LUZMASANGEETASONYADOB: 4 (20 yo F)Acc No.[id number]:05/30/2024 Progress Notes Patient: SONYA BLANC Provider: JERONIMO Oliva :2005 A ge:19 Y S ex:Female Date:05/30/2024 Address:[address], [phone] Pcp:Morelia Jameson Subjective: * Chief Complaints: * 1 . Hurting in lower back, concerns of kidney infection. * Medical History: Objective: * Vitals: Assessment: Plan: * Treatment: * Images: Billing Information: * Visit Code: * Procedure Codes: * Electronic signature of JERONIMO Horton on 05/22/2025 at 01:08 PM EST Sign off status: Pending * Provider: JERONIMO Oliva Date: 07/30/2023 Generated for Irma pablo/Tali/Chandra on: 07/22/2024 01:08 PM EST
--- OUTSIDE RECORDS SUMMARY | 2024-06-28 08:15 | XMS_ITS ---
[facility] [address] [place] [id number] Care Team Providers Care Hay Stacker Operator Name Role Phone Morelia Jameson Primary Care Provider [phone] Hyacinth Tuttle [phone] Allergies Allergen (clinical drug ingredient) Drug/Non Drug Allergy documented on EMR Reaction Allergy Type Onset Date Status amoxicillin / clavulanate Augmentin rash Drug Allergy Active azithromycin Azithromycin hives Drug Allergy A ctive predniSONE rash Drug Allergy Active Results Component Value Reference Range Notes Influenza Screen (in house) Reviewed date:06/28/2024 03:12:02 PM Interpretation:neg Performing Lab: Notes/Report: neg results neg Rapid Strep- Inhouse Reviewed date:06/28/2024 03:11:48 PM Interpretation:neg Performing Lab: Notes/Report: neg strep test neg Covid test (in house) Reviewed date:06/28/2024 03:11:55 PM Interpretation:neg Performing Lab: Notes/Report: neg Result: neg REASON FOR VISIT sore throat, ear ache Medications Medication SIG (Take, Route, Frequency, Duration) Notes Start Date End Date Status Probiotic Formula 1-250 BILLION-MG 1 cap(s) orally once a day Active Multiple Vitamin - 1 cap(s) orally once a day Active Rizatriptan Benzoate 5 MG 1 tab(s) orall y once a day 05/20/2022 Active Ondansetron HCl 4 mg TAKE ONE TABLET BY MOUTH EVERY 8 HOURS NEEDED; Duration: 7 Active Flovent HFA 44 MCG/ACT 2 puff(s) inhaled BID; Duration: 30 day(s) Active Vitamin B Complex - as directed Orally Active Cefdinir 300 MG 1 cap(s) Orally Two times a day; Duration: 7 days 06/28/2024 Active Pristiq 25 MG 1 tablet Orally Once a day; Duration: 30 day(s) Active Vital Signs Blood pressure systolic 116 mm Hg 06/28/20 24 Blood pressure diastolic 70 mm Hg 024 Heart Rate 83 /min 06/28/2024 Height 63 in 06/28/2024 Weight 105.2 lbs 06/28/2024 BMI 18.63 kg/m2 06/28/2024 Encounters Encounter Location Date Provider Diagnosis [facility] [address] [facility] [address] [place] [id number] 06/28/2024 Hyacinth Tuttle Acute otitis media, bilateral H66.93 and Acute URI J06.9 Assessments Encounter Date Diagnosis (ICD Code) Assessment Notes Treatment Notes Treatment Clinical Notes Section Notes 06/28/2024 Acute otitis media, bilateral (ICD-10 - H66.93) 06/28/2024 Acute URI (ICD-10 - J06.9) Has cough medication at home. Plan Of Treatment Medication Medication Name Sig Start Date Stop Date Notes Cefdinir 300 MG 1 cap(s) Orally Two times a day; Duration: 7 days 06/28/2024 Treatment Notes Assessment Notes Acute URI Has cough medication at home. Next Appt Details Follow Up: prn, Reason: Progress Notes * RAHULSHILOHBRYANNASONYADOB: 4 (20 yo F)Acc No.[id number]:06/28/2024 Progress Notes Patient: SONYA BLANC Provider: JERONIMO Oliva :2005 A ge:19 Y S ex:Female Date:06/28/2024 Address:[address] [place] [address] [id number] Pcp:Morelia Jameson Subjective: * Chief Complaints: * 1 . Sore throat, ear ache. * HPI: E NT/respiratory: 19 year old female presents with c/o sore throat P t sts her sore throat and earache started this morning, and sts she took Tylenol to see if it would help and sts it has not helped any. c/o ear pain. Denies : Fever. G astroenterology: c/o Abdominal Pain P t sts that yesterday she had an upset stomach. * ROS: D ERMATOLOGY: no R melissa. [...] Diagno stic Procedure: C janell, Sore Throat- [facility] 11/2015, S[facility] Th[place]- [facility] [place]. * Family History: F ather: alive. [...] rash, Azithromycin: hives. Objective: * Vitals: W t:105.2, Temp:99.0, BP:116/70, HR:83, Nurse:[facility], Ht: 63, BMI:18.63. * Examination: E NT/Respiratory: General Appearance: N AD. E ars: TM's pink bilaterally, canals clear. N ose : turbinates red. S inuses : non tender bilaterally.?Oral cavity : erythema without exudate on pharynx. N vivien : n o cervical lymphadenopathy. H eart : R RR, normal S1 S2, no murmurs. L ungs: c lear to auscultation bilaterally. Assessment: * Assessment: 1. A cute otitis media, bilateral - H66.93 (Primary) 2 . A cute URI - J06.9? Plan: * Treatment: 2. A cute URI L AB: Influenza Screen (in house) (Collection Date & Time - 06/28/2024) n eg Value Reference Range r esults neg * Dipika Rea 06/28/2024 1:53 :00 PM > , Provider reviewed results while patient in office.Hyacinth Tuttle 06/28/2024 3:12:00 PM > ?LAB: Rapid Strep- Inhouse (Collection Date & Time - 06/28/2024)?neg* Value Reference Range s trep test neg * Dipika Rea 06/28/2024 1:44 :33 PM > , Provider reviewed results while patient in office.Hyacinth Tuttle 06/28/2024 3:11:46 PM > ?LAB: Covid test (in house) (Collection Date & Time - 06/28/2024)?neg* Value Reference Range R esult: neg * Dipika Rea 06/28/2024 1:53 :19 PM > , Provider reviewed results while patient in office.Hyacinth Tuttle 06/28/2024 3:11:53 PM > Notes: Has cough medication at home.?? * Procedure Codes: 8 7880 STREP A ASSAY W/OPTIC, Modifiers: QW , 91706 Flu Test- Nasal Swab, Modifiers: QW , 59247 COVID TEST IN HOUSE, Modifiers: QW * Follow Up: p rn * Images: Billing Information: * Visit Code: 21810 Office Visit, Est Pt., Level 3. * Procedure Codes: 40488 STREP A ASSAY W/OPTIC. Modifiers: QW 07369 Flu Test- Nasal Swab. Modifiers: QW 43181 COVID TEST IN HOUSE. Modifiers: QW * Electronic signature of JERONIMO Horton on 05/22/2025 at 01:07 PM EST Sign off status: Pending * Provider: JERONIMO Oliva Date: 08/29/2023 Generated for Irma pablo/Tali/eTransmitting on: 07/22/2024 01:07 PM EST History and Physical Notes * HPI (History of Present Illness) Category Sub-Category Detail Notes Category Not es ENT/respiratory sore throat Pt sts her sore throat and earache started this morning, and sts she took Tylenol to see if it would help and sts it has not helped any ear pain Fever Gastroenterology Abdominal Pain Pt sts that yesterday she had an upset stomach Examination Category Sub-Category Detail Notes Category Not es ENT/Respiratory Oral cavity : erythema without exudate on pharynx Sinuses : non tender bilateral ly Ears: TM's pink bilaterall y, canals clear Neck : no cervical lymphade nopathy Heart : RRR, normal S1 S2, n o murmurs Lungs: clear to auscultatio n bilaterally General Appearance: NAD Nose : turbinates red
--- OUTSIDE RECORDS SUMMARY | 2024-12-11 09:45 | XMS_ITS ---
[facility] Address [address] [place] [id number] Care Team Providers Care Accounts Payable Technician Name Role Phone Morelia Jameson Primary Care Provider Joanna Paredes [phone] Allergies Allergen (clinical drug ingredient) Drug/Non Drug Allergy documented on EMR Reaction Allergy Type Onset Date Status amoxicillin / clavulanate Augmentin rash Drug Allergy Active azithromycin Azithromycin hives Drug Allergy A ctive predniSONE rash Drug Allergy Active REASON FOR VISIT sore spot on forehead Medications Medication SIG (Take, Route, Frequency, Duration) Notes Start Date End Date Status Rizatriptan Benzoate 5 MG 1 tab(s) orall y once a day 05/20/2022 Active Ondansetron HCl 4 mg TAKE ONE TABLET BY MOUTH EVERY 8 HOURS NEEDED; Duration: 7 Active Probiotic Formula 1-250 BILLION-MG 1 cap(s) orally once a day Active Multiple Vitamin - 1 cap(s) orally once a day Active Pristiq 25 MG 1 tablet Orally Once a day; Duration: 30 day(s) Active Sulfamethoxazole-Trimethopr im 800-160 MG 1 tablet Orally Twice a day; Duration: 7 days 12/11/2024 Active Flovent HFA 44 MCG/ACT 2 puff(s) inhaled BID; Duration: 30 day(s) Active Vitamin B Complex - as directed Orally Active Vital Signs Weight 106.0 lbs 12/11/2024 Blood pressure systolic 100 mm Hg 12/12/19 25 Blood pressure diastolic 70 mm Hg 025 Heart Rate 75 /min 12/11/2024 Height 63 in 12/11/2024 BMI 18.78 kg/m2 12/11/2024 Encounters Encounter Location Date Provider Diagnosis [facility] [address] [place] [phone] 12/11/2024 Joanna Paredes Pustule L08.9 Assessments Encounter Date Diagnosis (ICD Code) Assessment Notes Treatment Notes Treatment Clinical Notes Section Notes 12/11/2024 Pustule (ICD-10 - L08.9) Antibiotic sent in, may stop if it gets better. Use moist heat a few times a day. Leave open to air no makeup or creams Plan Of Treatment Medication Medication Name Sig Start Date Stop Date Notes Sulfamethoxazole-Trimethopri m 800-160 MG 1 tablet Orally Twice a day; Duration: 7 days 12/11/2024 Treatment Notes Assessment Notes Pustule Antibiotic sent in, may stop if it gets better. Use moist heat a few times a day. Leave open to air no makeup or creams Next Appt Details Follow Up: prn, 1 week if no t better, Reason: Progress Notes * SONYA KWANDOB: 4 (20 yo F)Acc No.[id number]:12/11/2024 Progress Notes Patient: SONYA BLANC Provider: JACQUI Ford :2005 A ge:19 Y S ex:Female Date:12/11/2024 Address:[address] [place], [place] [id number] Pcp:Morelia Jameson Subjective: * Chief Complaints: * 1 . Sore spot on forehead. * HPI: D ermatology: 19 year old female presents with c/o skin lesion T he pt is here today with c/o a sore spot on her forehead. Pt states this started on Tuesday with a small red area. Pt states yesterday it got bigger and this morning it popped and some pus came out but is now hard and tender. * ROS: C ARDIOLOGY: no C hest pain. n o S hortness of breath. ? G ASTROENTEROLOGY: no N ausea. n o [...] Diagno stic Procedure: C ough, Sore Throat- [facility] 11/2015, S[place]- [facility] [place]. * Family History: F ather: alive. [...] BY MOUTH EVERY 8 HOURS NEEDED , Discontinued Cefdinir 300 MG Capsule 1 cap(s) Orally Two times a day , Medication List reviewed and reconciled with the patient * Allergies: A ugmentin: rash, predniSONE: rash, Azithromycin: hives. Objective: * Vitals: W t: 106.0, Temp: 98.2, BP: 100/70, HR: 75, Nurse: ALYSSA, Ht: 63, BMI:18.78. * Examination: G eneral Examination: General Appearance: a lert, pleasant. H eart: R RR.?Lungs: n ormal, clear to auscultation. S kin: p ustule on forehead, no surrounding cellulitis. Assessment: * Assessment: 1. P ustule - L08.9 (Primary) Plan: * Treatment: * Procedure Codes: 1 036F TOBACCO NON-USER, G8783 BP SCR PRFRM RCMDD DEFIND SCR INTVL, G8752 MOST RECENT SYSTOLIC BP < 140MM HG, G8754 MOST RECENT DIASTOLIC BP < 90MM HG * Follow Up: p rn, 1 week if not better * Images: Billing Information: * Visit Code: 48828 Office Visit, Est Pt., Level 3. * Procedure Codes: 1036F TOBACCO NON-USER. G8783 BP SCR PRFRM RCMDD DEFIND SCR INTVL. G8752 MOST RECENT SYSTOLIC BP < 140MM HG. G8754 MOST RECENT DIASTOLIC BP < 90MM HG. * Electronic signature of Aide Paredes APRN on 05/22/2025 at 01:08 PM EST Sign off status: Pending * Provider: JACQUI Ford Date: 0 12/11/2024 Generated for Irma pablo/Tali/Rakeshitting on: 1 07/22/2024 01:08 PM EST History and Physical Notes * HPI (History of Present Illness) Category Sub-Category Detail Notes Category Not es Dermatology skin lesion The pt is here t juan f with c/o a sore spot on her forehead. Pt states this started on Tuesday with a small red area. Pt states yesterday it got bigger and this morning it popped and some pus came out but is now hard and tender Examination Category Sub-Category Detail Notes Category Not es General Examination Heart: RRR Lungs: normal, clear to aus cultation General Appearance: alert, pleasant Skin: pustule on forehead, no surrounding cellulitis
--- OUTSIDE RECORDS SUMMARY | 2025-05-03 08:15 | XMS_ITS ---
[facility] Address [address] [place] [id number] Care Team Providers Care Sealant Mixer Name Role Phone Morelia Jameson Primary Care Provider [phone] Hyacinth Tuttle [phone] Allergies Allergen (clinical drug ingredient) Drug/Non Drug Allergy documented on EMR Reaction Allergy Type Onset Date Status amoxicillin / clavulanate Augmentin rash Drug Allergy Active azithromycin Azithromycin hives Drug Allergy A ctive predniSONE rash Drug Allergy Active REASON FOR VISIT ear infection Medications Medication SIG (Take, Route, Frequency, Duration) Notes Start Date End Date Status Multiple Vitamin - 1 cap(s) orally once a day Not-Taking Probiotic Formula 1-250 BILLION-MG 1 cap(s) orally once a day Not-Taking Ondansetron HCl 4 mg TAKE ONE TABLET BY MOUTH EVERY 8 HOURS NEEDED; Duration: 7 Not-Taking Rizatriptan Benzoate 5 MG 1 tab(s) orall y once a day 05/20/2022 Not-Taking Sulfamethoxazole-Trimetho prim 800-160 MG 1 tablet Orally Twice a day; Duration: 7 days 12/11/2024 Not-Taking 28-0.8 MG 1 tablet Orally Once a day Active Wellbutrin XL 150 MG 1 tablet in the mor nato Orally Once a day Active Flovent HFA 44 MCG/ACT 2 puff(s) inhaled BID; Duration: 30 day(s) Not-Taking Vitamin B Complex - as directed Orally Not-Taking Cefdinir 300 MG 1 cap(s) Orally Two times a day; Duration: 7 days 05/03/2025 Active Vital Signs Blood pressure systolic 108 mm Hg 05/03/20 25 Blood pressure diastolic 76 mm Hg 025 Heart Rate 98 /min 05/03/2025 Height 63 in 05/03/2025 Weight 107.6 lbs 05/03/2025 BMI 19.06 kg/m2 05/03/2025 Encounters Encounter Location Date Provider Diagnosis [facility] [address] [place] [id number] 05/03/2025 Hyacinth Tuttle Acute otitis media, right H66.91 Assessments Encounter Date Diagnosis (ICD Code) Assessment Notes Treatment Notes Treatment Clinical Notes Section Notes 05/03/2025 Acute otitis media, right (ICD-10 - H66.91) Plan Of Treatment Medication Medication Name Sig Start Date Stop Date Notes Cefdinir 300 MG 1 cap(s) Orally Two times a day; Duration: 7 days 05/03/2025 Next Appt Details Follow Up: prn, Reason: Progress Notes * SONYA KWANDOB: 4 (20 yo F)Acc No.[id number]:05/03/2025 Progress Notes Patient: THIERRY BLANCLYNN Provider: JERONIMO Oliva :2005 A ge:20 Y S ex:Female Date:05/03/2025 Address:[address] [place] [address] [id number] Pcp:Morelia Jameson Subjective: * Chief Complaints: * 1 . Ear infection. * HPI: E NT/respiratory: 20 year old female presents with c/o ear pain P t sts her rt ear started yesterday morning with pain and sts she believes she has an ear infection. Pt is as well. Denies : sore throat. D enies : cough. D enies : nasal congestion. D enies : Fever. * ROS: C ARDIOLOGY: no C hest [...] Diagno stic Procedure: C ough, Sore Throat- [facility] 11/2015, Sore Throat- [facility] [place] [place] 03/22/2021. * Family History: F ather: alive. [...] smoking status: no. * Medications: T aking Wellbutrin XL 150 MG Tablet Extended Release 24 Hour 1 tablet in the morning Orally Once a day , Taking 28-0.8 MG Tablet 1 tablet Orally Once a day , Not-Taking Vitamin B Complex - Tablet as directed Orally , Not-Taking Flovent HFA 44 MCG/ACT Aerosol 2 puff(s) inhaled BID , Not-Taking Probiotic Formula 1-250 BILLION-MG Capsule 1 cap(s) orally once a day , Not-Taking Multiple Vitamin - Capsule 1 cap(s) orally once a day , Not-Taking Rizatriptan Benzoate 5 MG Tablet Disintegrating 1 tab(s) orally once a day , Not-Taking Ondansetron HCl 4 mg Tablet TAKE ONE TABLET BY MOUTH EVERY 8 HOURS NEEDED , Not-Taking Sulfamethoxazole-Trimethoprim 800-160 MG Tablet 1 tablet Orally Twice a day , Medication List reviewed and reconciled with the patient * Allergies: A ugmentin: rash, predniSONE: rash, Azithromycin: hives. Objective: * Vitals: W t: 107.6, Temp: 98.6, BP: 108/76, HR: 98, Nurse: claudio, Ht: 63, BMI:19.06. * Examination: E NT/Respiratory: General Appearance: N AD. E ars: r ight TM erythematous, left TM normal. N ose : n ormal, no lesions, nares patent. O ral cavity : n o erythema or exudate seen on pharynx. N vivien : n o cervical lymphadenopathy. H eart : R RR, normal S1 S2, no murmurs. L ungs: c lear to auscultation bilaterally. Assessment: * Assessment: 1. A cute otitis media, right - H66.91 (Primary) Plan: * Treatment: * Follow Up: p rn * Images: Billing Information: * Visit Code: 20595 Office Visit, Est Pt., Level 3. * Procedure Codes: * Electronic signature of JERONIMO Horton on 05/22/2025 at 01:08 PM EST Sign off status: Pending * Provider: JERONIMO Oliva Date: Generated for Irma pablo/Tali/eTransmitting on: 07/22/2024 01:08 PM EST History and Physical Notes * HPI (History of Present Illness) Category Sub-Category Detail Notes Category Not es ENT/respiratory sore throat ear pain Pt sts her rt ear st arted yesterday morning with pain and sts she believes she has an ear infection. Pt is as well cough Fever nasal congestion Examination Category Sub-Category Detail Notes Category Not es ENT/Respiratory Oral cavity : no erythema or exudate s een on pharynx Ears: right TM erythematou s, left TM normal Neck : no cervical lymphade nopathy Heart : RRR, normal S1 S2, n o murmurs Lungs: clear to auscultatio n bilaterally General Appearance: NAD Nose : normal, no lesions, nares patent
--- NOTE | 2025-05-22 13:00 | US_ITS ---
PROCEDURE: US OB /MATERNAL DETAIL CLINICAL INDICATION: 20 week anatomy scan COMPARISON: No exams were available for comparison FINDINGS: Transabdominal sonographic images of the pelvis were obtained. From her established due date she is 20 weeks 0 days. Single viable intrauterine gestation. Breech position. Placenta: Anteriorplacenta grade 1. There is an average amount of fluid. The cervix appears satisfactory. Closed and measuring 4.79 cm in length. Complete survey performed and was unremarkable on the submitted images as in PACS. No discrete anomalies identified on survey imaging by technologist. Active fetus. Three-vessel cord with satisfactory umbilical cord insertion. 4- chamber heart noted. Situs, aortic arch, LVOT, RVOT, three-vessel view appear normal. Survey of brain & ventricles Unremarkable. Cerebellum, thalamus, choroid plexus, cisterna magna appear normal. Face and neck survey unremarkable. Profile, nasion, lips and nose appeared normal. Diaphragm and chest views unremarkable. Abdomen: Both kidneys noted and unremarkable. Stomach and bladder noted and satisfactory. Spine: Survey of the spine satisfactory with no anomalies identified nor imaged. The spinal views were incomplete due to position. Both arms and legs noted. Amniotic Fluid: Adequate. MVP 3.22 cm Measurements: Average ultrasound age 19weeks 5days. Estimated due date by ultrasound age 0410/11/2025. Estimated weight 318g BPD = 19weeks 3days HC = 19weeks 3days AC = 20weeks 3days FL = 19weeks 4days Growth Percentile= 38 Heart Rate = 147bpm Cerebellum = 19weeks 4days Humerus = 20weeks 4days HC/AC is 1.1 FL/BPD is 0.7 FL/AC is 0.2 IMPRESSION: 1. Viable fetus in the breech presentation with an anterior placenta grade 1. 2. The fluid is within normal limits with an MVP 3.22 cm. 3. Spinal views were incomplete due to position and suggest the patient return in 2-3 weeks for repeat views. 4. The rest of the anatomical scan appears normal. 5. biometry is consistent with the dates. Dictated by: Ian Mittal MD 05/22/2025 16:54 Ian Mittal MD in OV 05/22/2025 16:54
--- OUTSIDE RECORDS SUMMARY | 2025-05-22 13:08 | XMS_ITS | Patient Health Record ---
[facility] Address [address] [place] [phone] Care Team Providers Care Broomcorn Seeder Name Role Phone Morelia Jameson Primary Care Provider [phone] Joanna Paredes Unavailable [phone] Hyacinth Tuttle Unavailable [phone] Allergies Allergen (clinical drug ingredient) Drug/Non Drug [...] AM Interpretation:No growth Performing Lab: Notes/Report: CLIA: [id number] Yo Cedillo MD, [facility] [employer] [facility] , [address], [place] [address] Test performed by [employer], [employer] Specimen Source Urine - Void Culture, Urine See Below Final Report : No growth Influenza Screen (in house) Reviewed date:06/28/2024 03:12:02 PM Interpretation:neg Performing Lab: Notes/Report: neg results neg Rapid Strep- Inhouse Reviewed date:06/28/2024 03:11:48 PM Interpretation:neg Performing Lab: Notes/Report: neg strep test neg Covid test (in house) Reviewed date:06/28/2024 03:11:55 PM Interpretation:neg Performing Lab: Notes/Report: neg Result: neg Medications Medication SIG (Take, Route, Frequency, Duration) Notes Start Date End Date Status 28-0.8 MG 1 tablet Orally Once a day Active Wellbutrin XL 150 MG 1 tablet in the mor nato Orally Once a day Active Flovent HFA 44 MCG/ACT 2 puff(s) inhaled BID; Duration: 30 day(s) Not-Taking Vitamin B Complex - as directed Orally Not-Taking Cefdinir 300 MG 1 cap(s) Orally Two times a day; Duration: 7 days 05/03/2025 Active Multiple Vitamin - 1 cap(s) orally [...] a day; Duration: 7 days 12/11/2024 Not-Taking Immunizations Vaccine Route Administration Date Status Comme [...] W/U Status Risk Notes Problem Strep throat (05445636) Strep throat (J02.0) Active confirmed Problem Seasonal allergy (021905744) Seasonal allergies (J30.2) Active confirmed Problem Mixed anxiety and depressive disorder (337807358) Depression with anxiety (F41.8) Active confirmed Problem Amenorrhea (23184374) Amenorrhea (N91.2) Active confirmed Problem Environmental allergy (101611652) Environmental allergies (Z91.09) Active confirmed Problem Streptococcal pharyngitis (43480895) Streptococcal pharyngitis (J02.0) Active confirmed Problem Bronchitis (49755760) Bronchitis (J40) Active confirmed Problem Migraine without aura, not refractory (079783494) Migraine without aura and without status migrainosus, not intractable (G43.009) Active confirmed Problem Verruca plantaris (74682736) Plantar wart, right foot (B07.0) Active confirmed Problem Acute pharyngitis (676399646) Pharyngitis, unspecified etiology (J02.9) Active confirmed Problem Disruptive mood dysregulation disorder (943798060) Disruptive mood dysregulation disorder (F34.81) Active confirmed Problem Irritable bowel syndrome (01170441) Irritable bowel syndrome, unspecified type (K58.9) Active confirmed Problem Gastroduodenitis (015201771) Gastritis without bleeding, unspecified chronicity, unspecified gastritis type (K29.70) Active confirmed Problem Low vision right eye, normal vision left eye (disorder) (303518353902041) Decreased vision of right eye (H54.7) Active confirmed Problem Seasonal allergic rhinitis (593358920) Seasonal allergic rhinitis, unspecified trigger (J30.2) Active confirmed Problem Allergic rhinitis (84285801) Acute allergic rhinitis (J30.9) Active confirmed Vital Signs Heart Rate 98 /min 05/03/2025 Blood pressure diastolic 76 mm Hg 05/03/2025 Height 63 in 05/03/2025 Blood pressure systolic 108 mm Hg 05/03/2025 Weight 107.6 lbs 05/03/2025 BMI 19.06 kg/m2 05/03/2025 Encounters Encounter Location Date Provider [facility] [address] [place] [id number] 05/29/2024 Joanna Paredes UTI (lower urinary tract infection) N39.0 [facility] [address] [place] [id number] 06/28/2024 Hyacinth Crowdy Acute otitis media, bilateral H66.93 and Acute URI J06.9 [facility] [address] [place] [id number] 12/11/2024 Joanna Paredes Pustule L08.9 [facility] [address] [place] [id number] 05/03/2025 Hyacinth Crowdy Acute otitis media, right H66.91 Assessments Encounter Date Diagnosis (ICD Code) Assessment Notes Treatment Notes Treatment Clinical Notes Section Notes 05/03/2025 Acute otitis media, right (ICD-10 - H66.91) 05/29/2024 UTI (lower urinary tract infection) (ICD-10 [...] Coverage Start Date Coverage End Date [employer] [facility] [address] [place], [place] [phone] [id number] SONYA KWAN Self - patient is the [...] 06/2015 Hospitalization History Reason Date(Month/Year) Sore Throat- [facility] [place] 03/22/2021 Cough, Sore Throat- [facility] 11/27 16
--- OUTSIDE RECORDS SUMMARY | 2025-05-22 13:08 | XMS_ITS | Clinical Summary ---
Author Organization [facility] Address [address] [place] [address] Care Team Providers Care Import Clerk Name Role Phone Domenico Jameson MD Primary Care Provider [phone] Allergies Active Allergy Reactions Criticality Noted [...] SDOH Screenings 2022 [facility]-Adult SDOH Screenings 2022 [id number] Vaccine ( season) 2025 04/23/2022, 06/01/2021, 03/07/2021 [facility]-Influenza Vaccine (#1) 2025 08/18/2018 [facility]-Pap Smear 2025 [facility]-DTaP,Tdap,and Td Vaccines (7 - Td or Tdap) 01/27/2026 01/28/2016, 04/16/2008, 10/13/2005, Additional history exists [facility]-Zoster Vaccines (1 of 2) 2054 04/16/2008, 05/03/2005 [facility]-HIB Vaccines Aged Out 2004, 02/2005, 2004 No longer eligible based on patient's age to complete this topic [facility]-Hepatitis B Vaccines Completed , 2004, 2004 [facility]-Pneumococcal Vaccine: Pediatrics (0 to [...] this topic Insurance [employer] MEDICAID [employer] MEDICAID Care Teams Import Clerk Relationship Specialty Start Date End Date Domenico Jameson MD [address] [place] [address] PCP - General 11/21/20
--- OUTSIDE RECORDS SUMMARY | 2025-05-22 13:09 | XMS_ITS | Clinical Summary ---
Author Organization [facility] Address [address] [place] [address] Care Team Providers Care Arbor Press Operator Name Role Phone Brian Jameson MD Primary Care Provider Source Comments [facility] is fully rolled out with thefollowing exceptions:General Clinical Research [facility] Allergies Active Allergy Reactions Criticality Noted [...] Noted Date Diagnosed Date Unspecified constipation 10/24/2014 Overview (05/07/2025): Updated as part of IMO process, approved by . Abdominal pain, periumbilic 10/24/2014 Overview (05/07/2025): Updated as part of IMO process, approved by . Resolved Problems Problem Noted Date Diagnosed Date [...] of 3 - 19+ 3-dose series) 2023 AMB SEASONAL FLU VACCINE (#1) 03/11/2025 COVID-19 Vaccine (1 - 2023-2 5 season) 2025 HIB IMMUNIZATION Aged Out No longer e [...] to complete this topic Insurance ADINA [facility] Address: [facility] [id number] [place] [address] Care Teams Arbor Press Operator Relationship Specialty Start Date End Date Brian Jameson MD [facility] [address] [place] [address] PCP - General External Family Practice 10/22/14
== END 2025-05-22 23:59 | disposition home or self-care (01) ==
LOC: RAD 12:56
PROVIDERS: PCP Nurse Practitioner; Visit Provider Obstetrics & Gynecology
DX: O32.1XX0 Maternal care for breech presentation, not applicable or unspecified (principal); Z3A.20 20 weeks gestation of pregnancy
CPT/HCPCS: 76811

== ENCOUNTER 2025-06-05 13:02 | Outpatient (CLI) | payer OTHER, SELFPAY ==
--- NOTE | 2025-06-05 13:00 | US_ITS ---
PROCEDURE: US OB FOLLOW UP CLINICAL INDICATION: spinal views in 2wks COMPARISON: US US OB /MATERNAL DETAIL from 05/22/2025 FINDINGS: Transabdominal sonographic images of the pelvis were obtained. The following parameters are obtained: From her established due date she is 22weeks 0 days Viable fetus in the breech presentation with an anterior placenta grade 1. The cervix measures 4.49 cm in length heart rate: 147bpm bpm. Amniotic fluid: MVP 3.54 cm No obvious anomalies evident. Stomach, bladder, three-vessel cord, four chamber heart appear normal. Spinal views: Cervical, thoracic and lower spine appear normal today. IMPRESSION: 1. Viable fetus in the breech presentation with anterior placenta grade 1. 2. The fluid is within normal limits with an MVP 3.54 cm. 3. Spinal views were seen and appear normal today. 4. The rest of the limited anatomical scan appears normal. Dictated by: Ian Mittal MD 06/05/2025 14:07 Ian Mittal MD in [place] 06/05/2025 14:07
--- OUTSIDE RECORDS SUMMARY | 2025-06-05 13:04 | XMS_ITS | Clinical Summary ---
Author Organization [facility] Address [address] [place] [address] Care Team Providers Care Therapeutic Mentor Name Role Phone Brian Jameson MD Primary Care Provider Source Comments [facility] is fully rolled out with thefollowing exceptions:General Clinical Research [facility] Allergies Active Allergy Reactions Criticality Noted Date [...] VACCINE (#1) 03/11/2025 COVID-19 Vaccine (1 - 2024-2 6 season) 2025 HIB IMMUNIZATION Aged Out No [...] this topic Insurance ADINA RICHARD Care Teams Therapeutic Mentor Relationship Specialty Start Date End Date Brian Jameson MD [facility] [address] [place] [address] PCP - General External Family Practice 10/22/14
--- OUTSIDE RECORDS SUMMARY | 2025-06-05 13:04 | XMS_ITS | Clinical Summary ---
Author Organization [facility] Address [address] [place] [address] Care Team Providers Care Vehicle Maintenance Supervisor Name Role Phone Domenico Jameson MD Primary Care Provider [phone] Allergies Active Allergy Reactions Criticality Noted [...] SDOH Screenings 2022 [facility]-Adult SDOH Screenings 2022 [id number] Vaccine ( season) 2025 04/23/2022, 06/01/2021, 03/07/2021 [...] MEDICAID [employer] MEDICAID Care Teams Vehicle Maintenance Supervisor Relationship Specialty Start Date End Date Domenico Jameson MD [address] [place] [address] PCP - General 11/21/20
== END 2025-06-05 23:59 | disposition home or self-care (01) ==
LOC: RAD 13:02
PROVIDERS: PCP Nurse Practitioner; Visit Provider Obstetrics & Gynecology
DX: O32.1XX0 Maternal care for breech presentation, not applicable or unspecified (principal); Z3A.22 22 weeks gestation of pregnancy
CPT/HCPCS: 76816